=== PATIENT | male | born 1945 | race Caucasian/White ===

== ENCOUNTER → 2017-10-11 15:35 | Outpatient (CLI) | payer MEDICARE, BC, SELFPAY ==
--- NOTE | 2017-10-11 15:39 | CT_ITS ---
STUDY: CT TEMPORAL BONES WITH CONTRAST - ATTN: I.A.C. S REASON FOR EXAM: Male, 71 years old. Hearing loss RADIATION DOSAGE (If Supplied By Facility): CTDIvol = ( 82.28 ) mGy, DLP = ( 971.33 ) mGycm TECHNIQUE: The patient was scanned in a multi detector CT scanner. Transaxial imaging was performed with the administration of 100 ml of Isovue 300 intravenous contrast material. Sagittal and coronal images were reconstructed. Individualized dose optimization techniques were used for this CT. COMPARISON: None. FINDINGS: RIGHT TEMPORAL BONE Normal right internal auditory canal. There is no demonstrated enhancing abnormality. Normal visualized ossicles and tympanic cavity. Normal right cochlea and semicircular canals. Normal vestibular aqueduct. Normal right petrous carotid artery. Normal right jugular fossa. There are minimal scattered inflammatory changes of the right mastoid air cells consistent with mild chronic otomastoiditis. Normal right petrous apex. LEFT TEMPORAL BONE Normal left internal auditory canal. There is no demonstrated enhancing abnormality. Normal visualized ossicles and tympanic cavity. Normal left cochlea and semicircular canals. Normal vestibular aqueduct. Normal left petrous carotid artery. Normal right jugular fossa. There are minimal scattered inflammatory changes of the left mastoid air cells consistent with mild chronic otomastoiditis. Normal left petrous apex. CT/Orb Sella Post Fossa Ear W/CON IMPRESSION: There are minimal scattered inflammatory changes of the left mastoid air cells consistent with mild chronic otomastoiditis. There are minimal scattered inflammatory changes of the right mastoid air cells consistent with mild chronic otomastoiditis. Electronically Signed: Garry Menjivar MD at 23:48 EDT , Service support ,
[2017-10-11 15:51] LABS: CREATININE FINGERSTICK 0.9 mg/dL (0.70-1.30); EGFR FINGERSTICK > 60.0000 mL/min (>60)
== END ==
PROVIDERS: Family Provider Internal Medicine; PCP Internal Medicine; Visit Provider Otolaryngology Otolaryngology/Facial Plastic Surgery
DX: H90.5 Unspecified sensorineural hearing loss (principal); H93.12 Tinnitus, left ear
CPT/HCPCS: 70481; Q9967

== ENCOUNTER → 2017-12-15 09:10 | Outpatient (CLI) | payer MEDICARE, BC, SELFPAY | PROVIDERS: Family Provider Internal Medicine; PCP Internal Medicine; Visit Provider Otolaryngology Otolaryngology/Facial Plastic Surgery | DX: J32.9 Chronic sinusitis, unspecified (principal) | CPT/HCPCS: 87070; 87205 ==

== ENCOUNTER 2020-08-05 16:28 | Outpatient (RCR) | payer MEDICARE, BC, SELFPAY | END 2020-08-05 23:59 | LOC: IMMUN 16:28 | PROVIDERS: PCP Internal Medicine; Referring Provider Family Medicine; Visit Provider Family Medicine | DX: Z23 Encounter for immunization (principal) | CPT/HCPCS: 0011A; 0012A ==

== ENCOUNTER → 2023-05-24 | Outpatient (CLI) | payer MEDICARE, BC, SELFPAY | END | disposition home or self-care (01) | PROVIDERS: PCP Internal Medicine; Visit Provider Otolaryngology | DX: J32.9 Chronic sinusitis, unspecified (principal) | CPT/HCPCS: 87070; 87077; 87186; 87205 ==

== ENCOUNTER → 2023-07-09 | Outpatient (CLI) | payer MEDICARE, BC, SELFPAY ==
--- OUTSIDE RECORDS SUMMARY | 2023-07-09 06:39 | XMS RPT_ITS | CCD ---
Author Name Unknown Address [address] [place] [address] Organization [facility] Care Team Providers Care Backup Operator Name Role Phone Nando Plummer MD Primary Care Provider [phone] Yobany Chou [phone] PLUMMER, NANDO Ruff Primary Care Unavailable PLUMMER, NANDO Ruff Referring Unavailable PLUMMER, NANDO Ruff Primary Care Unavailable PLUMMER, NANDO Ruff Attending Unavailable KAVITHA, NANDO Ruff Primary Care Unavailable PLUMMER, NANDO Ruff Referring Unavailable KARLI DUPREE Attending Unavailable PLUMMER, NANDO Ruff Primary Care Unavailable PLUMMER, NANDO Ruff Referring Unavailable PLUMMER, NANDO Ruff Primary Care Unavailable PLUMMER, NANDO Ruff Primary Care Unavailable KIMBERLY HDEZ Referring Unavailable PLUMMER, NANDO Ruff Primary Care Unavailable KIMBERLY HDEZ Referring Unavailable PLUMMER, NANDO Ruff Primary Care Unavailable PLUMMER, NANDO Ruff Primary Care Unavailable PLUMMER, NANDO Ruff Referring Unavailable PLUMMER, NANDO Ruff Primary Care Unavailable PLUMMER, NANDO Ruff Attending Unavailable KIMBERLY HDEZ Referring Unavailable PLUMMER, NANDO Ruff Primary Care Unavailable PLUMMER, NANDO Ruff Primary Care Unavailable KAY HILLIARD Attending Unavailable KAVITHA, NANDO Ruff Primary Care Unavailable KAY HILLIARD Referring Unavailable KIMBERLY HDEZ Attending Unavailable KAVITHA, NANDO Ruff Primary Care Unavailable KAY HILLIARD Referring Unavailable PLUMMER, NANDO Ruff Primary Care Unavailable PLUMMER, NANDO Ruff Referring Unavailable PLUMMER, NANDO Ruff Primary Care Unavailable SAHARA ANDRADE Attending Unavailable SELF Referring Unavailable PLUMMER, NANDO Ruff Primary Care Unavailable SAHARA ANDRADE Attending Unavailable PLUMMER, NANDO Ruff Primary Care Unavailable PLUMMER, NANDO Ruff Primary Care Unavailable HORNILSS, DO CHRISTOPHER Attending KARLI Black Referring Unavailable PROVIDER, UNKNOWN Attending Unavailable PROVIDER, UNKNOWN Admitting Unavailable NANDO PLUMMER Primary Care Unavailable Allergies Allergy Classification Reported Allergen(s) Allergy Type Date of Onset Reaction(s) Facility (7 sources) Penicillins; Translations: [PENICILLINS] Propensity to adverse reactions 5 Anaphylaxis [facility] Work Phone: (20 sources) Sulfonamides (Antibiotic); Translations: [SULFA (SULFONAMIDE ANTIBIOTICS)] Propensity to adverse reactions 5 Anaphylaxis [facility] Work Phone: (20 sources) Adhesive Tape-Silicones; Translations: [ADHESIVE TAPE-SILICONES] Drug Allergy Rash [facility] (20 sources) Penicillins Propensity to adverse reactions 5 Anaphylaxis [facility] Work Phone: Medications Current Medications Medication Drug Class(es) Dates Sig (Normalized) Sig (Original) azithromycin 250 mg oral tablet (1 source) Macrolide Antimicrobial Start: 05-06-2023 End: 05-11-2023 azithromycin (ZITHROMAX Z-KIRSTEN) 250 mg tablet Indications: Bacterial sinusitis Take 2 tablets day one, then, 1 tablet daily until gone. 6 tablet 0 05/06/2023 05/11/2023 Active Completed/Discontinued Medications Medication Drug Class(es) Dates Sig (Normalized) Sig (Original) [id number] 200 actuat albuterol 0.09 mg/actuat metered dose inhaler (12 sources) beta2-Adrenergic Agonist Start: 07-22-2022 End: 03-30-2023 take 2 puff(s) by inhalation every six hours as needed albuterol HFA (PROAIR HFA) 90 mcg/actuation inhaler Inhale 2 Puffs as instructed every 6 hours as needed. 1 Each 0 07/22/2022 03/30/2023 Discontinued Problems Active Problems Problem Classification Problem Date Documented Date Episodic/Chronic Allergic reactions (1 source) H/O: multiple allergies; Translations: [Allergy status to unspecified drugs, medicaments and biological substances status] Episodic Asthma (20 sources) Uncomplicated mild persistent asthma; Translations: [Mild persistent asthma, uncomplicated] Onset: 08-24-2022 08-24-2022 Chronic Diabetes mellitus with complications (20 sources) Type 2 diabetes mellitus; Translations: [Type 2 diabetes mellitus with diabetic neuropathy, unspecified] Onset: 01-11-2017 12-19-2019 Chronic Disorders of lipid metabolism (3 sources) Hyperlipidemia; Translations: [Hyperlipidemia, unspecified] Onset: 09-21-2022 Chronic Essential hypertension (20 sources) Essential hypertension; Translations: [Essential (primary) hypertension] Onset: 07-27-2005 12-19-2019 Chronic Heart valve disorders (8 sources) Heart murmur; Translations: [Cardiac murmur, unspecified] Onset: 03-30-2023 03-30-2023 Episodic Osteoarthritis (2 sources) Osteoarthritis; Translations: [Unspecified osteoarthritis, unspecified site] Chronic Other connective tissue disease (8 sources) Cramp; Translations: [Cramp and spasm] Onset: 03-30-2023 03-30-2023 Episodic Other connective tissue disease (1 source) Cramp and spasm; Translations: [Muscle cramps] Onset: 03-26-2023 Episodic Other lower respiratory disease (2 sources) Dyspnea; Translations: [Dyspnea, unspecified] Episodic Other lower respiratory disease (8 sources) Dyspnea on exertion; Translations: [Other forms of dyspnea] Onset: 03-30-2023 03-30-2023 Episodic Other nutritional; endocrine; and metabolic disorders (20 sources) Body mass index 40+ - severely obese; Translations: [Morbid (severe) obesity due to excess calories] Onset: 08-29-2020 08-29-2020 Chronic Other screening for suspected conditions (not mental disorders or infectious disease) (2 sources) Finding of thyroid gland; Translations: [Abnormal findings on diagnostic imaging of other specified body structures] Onset: 05-18-2023 04-19-2023 Chronic Other upper respiratory disease (20 sources) Chronic rhinitis; Translations: [Chronic rhinitis] Onset: 12-22-2012 06-02-2021 Chronic Other upper respiratory disease (2 sources) Allergic rhinitis; Translations: [Allergic rhinitis, unspecified] Chronic Other upper respiratory infections (20 sources) Recurrent sinusitis; Translations: [Chronic sinusitis, unspecified] Onset: 01-13-2018 01-13-2018 Chronic Pulmonary heart disease (1 source) Pulmonary hypertension, unspecified; Translations: [Other chronic pulmonary heart diseases] Chronic Residual codes; unclassified (20 sources) Obstructive sleep apnea syndrome; Translations: [Obstructive sleep apnea (adult) (pediatric)] Onset: 07-25-2008 06-02-2021 Chronic Residual codes; unclassified (8 sources) Bilateral lower limb edema; Translations: [Localized edema] Onset: 03-30-2023 03-30-2023 Episodic Spondylosis; intervertebral disc disorders; other back problems (20 sources) Prolapsed lumbar intervertebral disc; Translations: [Other intervertebral disc displacement, lumbar region] Onset: 01-05-2014 Chronic Thyroid disorders (20 sources) Thyroid nodule; Translations: [Nontoxic single thyroid nodule] Onset: 02-02-2020 02-02-2020 Chronic Thyroid disorders (1 source) Disorder of thyroid, unspecified; Translations: [Thyroid mass] Onset: 06-22-2023 Episodic Unclassified (1 source) Acute cough; Translations: [Acute cough] Onset: 07-22-2022 Past or Other Problems Problem Classification Problem Date Documented Date Episodic/Chronic Chronic obstructive pulmonary disease and bronchiectasis (2 sources) Bronchitis; Translations: [Bronchitis, not specified as acute or chronic] Onset: 08-24-2022 Episodic Malaise and fatigue (1 source) Other fatigue; Translations: [Decreased stamina] Onset: 09-24-2022 Episodic Other nervous system disorders (20 sources) Abnormal gait; Translations: [Unspecified abnormalities of gait and mobility] Onset: 09-09-2021 Episodic Other non-epithelial cancer of skin (20 sources) Intraepidermal squamous carcinoma of leg; Translations: [Carcinoma in situ of skin of right lower limb, including hip] Onset: 12-01-2018 12-01-2018 Episodic Other non-traumatic joint disorders (20 sources) Hip pain; Translations: [Pain in right hip] Onset: 09-09-2021 Episodic Other skin disorders (20 sources) Actinic keratosis; Translations: [Actinic keratosis] Onset: 01-30-2012 01-30-2012 Episodic Results Test Name Value Interpretation Reference Range Facil ity Vital Signs Date Time Vital Sign Value Performing Clinician Faci lity 05-06-2023 09:20-0500 Body temperature 98.29 [degF] Montana Srinivasan APRN.ELECTRODE T[employer]NER AND FINISHER Work Phone: [facility] 05-06-2023 09:20-0500 Body weight 131.36 kg Montana Craig CLINICAL NURSE REVIEWER.ELECTRO[employer]NER [employer] FINISHER Work Phone: [facility] 05-06-2023 09:20-0500 Diastolic blood pressure 78 mm[Hg] Montana Craig CLINICAL NURSE REVIEWER.[employer]LECT[employer]NER [employer] FINISHER Work Phone: [facility] 05-06-2023 09:20-0500 Heart rate 100 /min Montana Craig CLINICAL NURSE REVIEWER.[employer]LECT[employer]NER AND FINISHER Work Phone: [facility] 05-06-2023 09:20-0500 Respiratory rate 21 /min Montana Craig CLINICAL NURSE REVIEWER.[employer]LECT[employer]NER AND FINISHER Work Phone: [facility] 05-06-2023 09:20-0500 SaO2% (BldA) [Mass fraction] 95 % Montana Craig CLINICAL NURSE REVIEWER.[employer]NER AND FINISHER Work Phone: [facility] 05-06-2023 09:20-0500 Systolic blood pressure 140 mm[Hg] Montana Craig CLINICAL NURSE REVIEWER.ELECTRO[employer]NER [employer] FINISHER Work Phone: [facility] 04-28-2023 08:52-0500 Body temperature 98.1 [degF] Montana Craig CLINICAL NURSE REVIEWER.ELECTRODE [employer]NER AND FINISHER Work Phone: [facility] 04-28-2023 08:52-0500 Body weight 131.09 kg Montana Craig CLINICAL NURSE REVIEWER.ELECTRO[employer]NER AND FINISHER Work Phone: [facility] 04-28-2023 08:52-0500 Diastolic blood pressure 90 mm[Hg] Montana Craig CLINICAL NURSE REVIEWER.[employer]LECT[employer]NER AND FINISHER Work Phone: [facility] 04-28-2023 08:52-0500 Heart rate 98 /min Montana Craig CLINICAL NURSE REVIEWER.ELECT[employer]NER AND FINISHER Work Phone: [facility] 04-28-2023 08:52-0500 Respiratory rate 16 /min Montana Craig CLINICAL NURSE REVIEWER.ELECTRO[employer]NER AND FINISHER Work Phone: [facility] 04-28-2023 08:52-0500 SaO2% (BldA) [Mass fraction] 97 % Montana Craig CLINICAL NURSE REVIEWER.ELECTRO[employer]NER AND FINISHER Work Phone: [facility] 04-28-2023 08:52-0500 Systolic blood pressure 138 mm[Hg] Montana King CARL Work Phone: [facility] 04-19-2023 09:17-0500 Body height 175.3 cm Karli Dupree MD Work Phone: [facility] 04-19-2023 09:17-0500 Body temperature 98.1 [degF] Karli Dupree MD Work Phone: [facility] 04-19-2023 09:17-0500 Body weight 131.81 kg Karli Dupree MD Work Phone: [facility] 04-19-2023 09:17-0500 Diastolic blood pressure 86 mm[Hg] Karli Dupree MD Work Phone: [facility] 04-19-2023 09:17-0500 Heart rate 99 /min Karli Dupree MD Work Phone: [facility] 04-19-2023 09:17-0500 SaO2% (BldA) [Mass fraction] 94 % Karli Dupree MD Work Phone: [facility] 04-19-2023 09:17-0500 Systolic blood pressure 134 mm[Hg] Karli Dupree MD Work Phone: [facility] 03-30-2023 10:49-0400 Diastolic blood pressure 75 mm[Hg] Nando Plummer MD Work Phone: [facility] 03-30-2023 10:49-0400 Heart rate 65 /min Nando Plummer MD Work Phone: [facility] 03-30-2023 10:49-0400 Systolic blood pressure 131 mm[Hg] Nando Plummer MD Work Phone: [facility] 03-30-2023 10:38-0400 Body height 170.2 cm Nando Plummer MD Work Phone: [facility] 03-30-2023 10:38-0400 Body weight 131.09 kg Nando Plummer MD Work Phone: [facility] 03-30-2023 10:38-0400 Respiratory rate 18 /min Nando Plummer MD Work Phone: [facility] 08-24-2022 11:28-0400 Body height 171.7 cm Kimberly Hdez MD Work Phone: [facility] 08-24-2022 11:28-0400 Body weight 128.82 kg Kimberly Hdez MD Work Phone: [facility] 08-24-2022 11:28-0400 Diastolic blood pressure 76 mm[Hg] Kimberly Hdez MD Work Phone: [facility] 08-24-2022 11:28-0400 Heart rate 84 /min Kimberly Hdez MD Work Phone: [facility] 08-24-2022 11:28-0400 Respiratory rate 20 /min Kimberly Hdez MD Work Phone: [facility] 08-24-2022 11:28-0400 SaO2% (BldA) [Mass fraction] 94 % Kimberly Hdez MD Work Phone: [facility] 08-24-2022 11:28-0400 Systolic blood pressure 152 mm[Hg] Kimberly Hdez MD Work Phone: [facility] 03-11-2022 08:44-0400 Body height 171.7 cm Nando Plummer MD Work Phone: [facility] 03-11-2022 08:44-0400 Body temperature 97.3 [degF] Nando Plummer MD Work Phone: [facility] 03-11-2022 08:44-0400 Body weight 128.28 kg Nando Plummer MD Work Phone: [facility] 03-11-2022 08:44-0400 Diastolic blood pressure 78 mm[Hg] Nando Plummer MD Work Phone: [facility] 03-11-2022 08:44-0400 Heart rate 60 /min Nando Plummer MD Work Phone: [facility] 03-11-2022 08:44-0400 Respiratory rate 20 /min Nando Plummer MD Work Phone: [facility] 03-11-2022 08:44-0400 Systolic blood pressure 136 mm[Hg] Nando Plummer MD Work Phone: [facility] Encounters Encounter Date Encounter Type Care Provider Facility Start: 06-22-2023 End: 06-22-2023 ambulatory NANDO PLUMMER Facility:[facility] Start: 05-18-2023 ambulatory UNKNOWN PROVIDER Facili ty:[facility] Start: 05-18-2023 End: 05-18-2023 Subsequent hospital visit by physician Maynor Waite MD [facility] Procedures Date Procedure Procedure Detail Performing Clinician Start: 05-18-2023 Fine needle aspirati on bx w/us gdn 1st lesion Karli Dupree MD Work Phone: Start: 05-18-2023 End: 05-18-2023 Biopsy thyroid percutaneous core needle Maynor Waite MD Work Phone: Start: 04-06-2023 Us soft tissue head & neck real time imge docm Nando Plummer MD Work Phone: Start: 08-24-2022 Nitric oxide gas determination Kimberly Hdez MD Work Phone: Start: 09-01-2021 Adult depression scr eening assessment Ryland Haywood PT Work Phone: Start: 05-14-2021 Colonoscopy Ryland tovar PT Work Phone: Plan of Treatment Date Care Activity Detail Author Start: 04-10-2032 Urine microalbumin profile [facility] Start: 05-14-2031 Colonoscopy COLONOSCOPY [facility] Start: 05-14-2031 COLORECTAL CANCER SCREENING COLORECTAL CANCER SCREENING [facility] Start: 05-13-2024 Glaucoma screening Dilated Retinal Exam [facility] Start: 03-30-2024 Annual PCP Team Chronic Disease Visit Annual PCP Team Chronic Disease Visit [facility] Start: 09-29-2023 End: 12-29-2023 ALBUMIN/CREAT RATIO RND UR ALBUMIN/CREAT RATIO RND UR Lab Routine 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) Expected: 09/29/2023, Expires: 12/29/2023 [facility] Work Phone: Immunizations Immunization Date Immunization Notes Care Provider Fa [facility] 03-24-2023 COVID-19 vaccine, ag e 12+ yr, season (MODERNA) Nando Plummer MD Work Phone: [facility] Work Phone: 03-16-2023 influenza (aIIV4) vaccine, age 65+ yr, quadrivalent, PF (FLUAD QUAD) Nando Plummer MD Work Phone: [facility] 03-02-2023 respiratory syncytia l virus (RSV) vaccine, adjuvanted (AREXVY) Nando Plummer MD Work Phone: [facility] 11-06-2022 COVID-19 vaccine, ag e 12+ yr, bivalent (MODERNA) Nando Plummer MD Work Phone: [facility] 11-06-2022 COVID-19 vaccine, ag e 12+ yr, bivalent (PFIZER-BIONTECH) Shanell Older CLINICAL NURSE REVIEWER.[facility] Work Phone: [facility] Work Phone: 04-10-2022 tetanus toxoid, redu rosaura diphtheria toxoid, and acellular pertussis vaccine, adsorbed Shanell Older CLINICAL NURSE REVIEWER.[facility] Work Phone: [facility] Work Phone: 03-13-2022 influenza (HD-IIV4) vaccine, age 65+ yr, high dose, quadrivalent, PF (FLUZONE HIGH-DOSE) Shanell Older CLINICAL NURSE REVIEWER.[facility] Work Phone: [facility] Work Phone: 03-13-2022 influenza, high dose seasonal, preservative-free Shanell Older CLINICAL NURSE REVIEWER.[facility] Work Phone: [facility] Work Phone: 03-13-2022 influenza virus vacc ine, unspecified formulation Shanell Older CLINICAL NURSE REVIEWER.[employer]LECTRO[employer] T[employer]NER AND FINISHER Work Phone: [facility] 02-11-2022 COVID-19 vaccine, ag e 18+ yr, bivalent booster (MODERNA) Nando Plummer MD Work Phone: [facility] Work Phone: 02-25-2021 influenza virus vacc ine, unspecified formulation Ryland Yobany PT Work Phone: [facility] Work Phone: 02-25-2021 influenza, high dose seasonal, preservative-free Ryland Yobany PT Work Phone: [facility] 08-05-2020 COVID-19 vaccine, fu ll dose (MODERNA) Ryland Yobany PT Work Phone: [facility] Work Phone: 03-11-2020 influenza, high dose seasonal, preservative-free Ryland Yobany PT Work Phone: [facility] Work Phone: 04-27-2019 zoster vaccine recombinant Ryland Yobany PT Work Phone: [facility] Work Phone: 03-14-2019 influenza, high dose seasonal, preservative-free Ryland Yobany PT Work Phone: [facility] 01-11-2019 zoster vaccine recombinant Ryland Yobany PT Work Phone: [facility] 03-05-2018 influenza, high dose seasonal, preservative-free Ryland Yobany PT Work Phone: [facility] 03-13-2017 influenza, high dose seasonal, preservative-free Ryland Yobany PT Work Phone: [facility] 02-29-2016 influenza, high dose seasonal, preservative-free Ryland Yobany PT Work Phone: [facility] 03-09-2015 influenza, high dose seasonal, preservative-free Ryland Yobany PT Work Phone: [facility] 01-10-2015 pneumococcal conjuga te vaccine, 13 valent Ryland Yobany PT Work Phone: [facility] Work Phone: 03-14-2014 influenza, seasonal, injectable Ryland Haywood PT Work Phone: [facility] 01-05-2014 pneumococcal polysaccharide vaccine, 23 valent Rylandemanuel Haywood PT Work Phone: [facility] 03-11-2013 influenza virus vacc ine, unspecified formulation Ryland Yobany PT Work Phone: [facility] Work Phone: 03-05-2012 influenza virus vacc ine, unspecified formulation Ryland Yobany PT Work Phone: [facility] 03-20-2011 influenza virus vacc ine, unspecified formulation Ryland Yobany PT Work Phone: [facility] Work Phone: 11-28-2010 zoster vaccine, live Ryland barber PT Work Phone: [facility] 10-23-2008 tetanus toxoid, redu rosaura diphtheria toxoid, and acellular pertussis vaccine, adsorbed Rylandemanuel Haywood PT Work Phone: [facility] Work Phone: Payers Date Payer Category Payer Medicare MEDICARE MEDICAR E A AND B [id number] 2011-Present [phone] [address] [address] [place] [address] Medicare [id number] 2011 Medicare MEDICARE MEDICAR E A AND B [id number] 2011-Present [phone] [address] [address] [place] [address] Medicare [id number] 2011 Medicare [id number] 1993 Unknown [employer] BS FEP PPO [id number] 1993-Present [phone] [address] [place] [address] PPO [id number] 1993 Unknown [employer]UA[employer] BS FEP PPO [id number] 1993-Present [phone] [address] [place] [address] PPO [id number] 1993 Unknown [id number] Social History Date Type Detail Facility Start: 07-22-2022 Tobacco smoking status NHIS Never smoked tobacco [facility] Work Phone: Start: 09-03-2021 End: 03-30-2023 Alcohol intake Ex-drinker (finding) [facility] Start: 09-02-2021 End: 03-10-2022 History SDOH Alcohol Frequency 1 [facility] Start: 09-02-2021 End: 09-22-2022 History SDOH Social Connections Phone 2 [facility] Start: 09-02-2021 End: 09-22-2022 History SDOH Social Connections Living 3 [facility] Start: 09-02-2021 History SDOH Physical Activity DPW 7 [facility] Start: 09-02-2021 End: 09-22-2022 History SDOH Financial 5 [facility] Start: 02-06-2020 Education 20 [facility] Start: 1945 Sex Assigned At Male [facility] Start: 08-24-2021 End: 03-11-2022 Exposure to SARS-CoV-2 (event) Not sure [facility] Work Phone: Start: 03-11-2022 History SDOH Physical Activity DPW 4 [facility] Start: 07-22-2022 Tobacco use and exposure Smokeless tobacco non-user [facility] Start: 09-22-2022 History SDOH Alcohol Std Drinks 0 [facility] Start: 09-21-2022 End: 12-03-2022 History of Social function [facility] Start: 09-21-2022 End: 12-03-2022 Social connection and isolation panel [facility] Do you belong to any clubs or organizations such as baptist groups, unions, fraternal or athletic groups, or school groups? No [facility] Attends Club or Organization Meetings Not on file [facility] Are you now , , , , never or living with a partner? [facility] How often to you hav e a drink containing alcohol? Never [facility] Do you feel stress - tense, restless, nervous, or anxious, or unable to sleep at night because your mind is troubled all the time - these days [OSQ] Not at all [facility] (I/We) worried wheth er (my/our) food would run out before (I/we) got money to buy more. Never true [facility] Start: 05-11-2020 Gender identity Identifies as male gender (finding) [facility] Start: 05-11-2020 Sexual orientation Heterosexual (finding) [facility] Start: 04-19-2023 End: 05-06-2023 Alcohol intake Current drinker of alcohol (finding) [facility] Clinical Notes 12-15-2019 to 06-22-2023 Brief Op Note - Maynor Waite MD, MD - 05/18/2023 5:46 PM Montana Jacobsen APRN.[facility] - 05/06/2023 10:27 AM Montana Jacobsen APRN.[facility] - 04/28/2023 10:05 AM ESTPatient Instructions Note Date & Type Note Facility 06-22-2023 Note HNO ID: [id number] Author: DO BAILEY MD Service: ? Author Type: Physician Type: Progress Notes Filed: 06/22/2023 11:24 Note Text: Reji Sarmiento is a 77 year old White male who presents with complaints of Thyroid nodularity HPI: he was in for evaluation of his thyroid nodularity. His initial office visit was virtual because of the COVID epidemic. He had a trauma which resulted in further imaging with a CT scan showing thyroid nodularity. Ultrasonography was done showing 3 dominant nodules and biopsy was recommended at that time. He underwent left thyroid nodule FNA biopsy in 2020 with the finding of atypia of undetermined significance but benign molecular testing. Follow-up ultrasonography was done . He was noted to have a 2.0 cm TI-RADS 4 lesion and FNA biopsy showed atypia of undetermined significance but Afirma molecular testing was benign. A 2.8 cm left-sided thyroid nodule TI-RADS 4 was also rebiopsied and found to be consistent with a benign follicular lesion. A third smaller 1.5 cm left-sided lesion TI-RADS 3 was below the threshold for biopsy and shortened interval follow-up ultrasonography over the next 5 years was recommended. These findings were reviewed with him. His original CT imaging was reviewed with him as well. I reviewed the differential diagnosis. We discussed risk benefits options potential complications. Previous TSH levels have been normal. This note was partially generated using [employer] voice recognition system. PAST MEDICAL HISTORY Diagnosis Date Allergies Previous IT Cholelithiasis 11/22/2019 Chronic rhinitis 12/22/2012 Chronic tympanostomies, Dr. Kramer, ENT Chronic serous otitis media of both ears 12/22/2012 Chronic tympanostomies, Dr. 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 Kee Aceves Lumbar disc herniation 01/05/2014 Mild persistent asthma without complication 08/24/2022 Motion sickness Multinodular goiter 04/10/2023 Multiple fractures of ribs, bilateral, initial encounter for closed fracture 11/23/2019 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 02/02/2020 Obesity, unspecified 07/27/2005 YUDITH on CPAP 07/25/[address] Zepeda Pleural effusion on right 12/13/2019 s/p trauma, chest tube drainage PAST SURGICAL HISTORY Procedure Laterality Date ADENOIDECTOMY PRIMARY Adenoidectomy ARTHROSCOPY KNEE DIAGNOSTIC W/WO SYNOVIAL BX SPX Arthroscopy, knee COLONOSCOPY FLX DX W/COLLJ SPEC WHEN PFRMD 10/02/2010 PAST SURGICAL HISTORY OF Right 12/13/2019 chest tube due to trauma rib fracture and clavicle fracture SEPTOPLASTY/SUBMUCOUS RESECJ W/WO CARTILAGE GRF Septoplasty THYROID BIOPSY US 11/26/2020 TONSILLECTOMY PRIMARY/SECONDARY Tonsillectomy TYMPANOSTOMY GENERAL ANES BILA 05/07/2011 Social History Tobacco Use Smoking status: Never Smokeless tobacco: Never Vaping Use Vaping Use: Never used Substance Use Topics Alcohol use: Yes Comment: 1.5 liters of wine per week. Stopped 2013. Drug use: No Family History Problem Relation Age of Onset Hypertension Mother Glaucoma Mother Cancer Father lymphoma, Hypertension Father Heart disease Maternal Grandfather Cancer Paternal Aunt Cancer Paternal Uncle Skin Cancer Paternal Uncle Asthma No Family History ALLERGIES Allergen Reactions Penicillins Anaphylaxis Sulfa (Sulfonamide * Anaphylaxis Tape [Adhesive Tape* Rash JUST SURGICAL FOAM TAPE Current Outpatient Medications Medication Sig Dispense Refill fluticasone (FLONASE) 50 mcg/actuation nasal spray Benazepril-hydroCHLOROthiazide 20-12.5 mg per tablet Take 2 tablets by mouth every morning. 180 tablet 3 metFORMIN (GLUCOPHAGE) 500 mg tablet Take 1 tablet by mouth daily with breakfast. 90 tablet 3 pravastatin (PRAVACHOL) 40 mg tablet Take 1 tablet by mouth daily at bedtime. For cholesterol. 90 tablet 3 fluticasone furoate (ARNUITY ELLIPTA) 100 mcg/actuation inhaler Inhale 1 Puff as instructed once daily. 1 Each 5 doxazosin (CARDURA) 2 mg tablet Take 2 tablets by mouth daily at bedtime. 180 tablet 1 meloxicam (MOBIC) 15 mg tablet Take 1 tablet by mouth once daily. With food. 90 tablet 3 amLODIPine (NORVASC) 10 mg tablet Take 1 tablet by mouth once daily. 90 tablet 3 Potassium 99 mg tab Take 2 tablets by mouth twice daily. Oqasw-2-KAZ-EPA-Fish Oil 1,000 mg (120 mg-180 mg) cap Take 1 g by mouth once daily. sodium chloride (SALINE NASAL NASAL) Use 1 [place] Pk in the nose as needed. calcium carbonate (more content not included)... [facility] 05-18-2023 Surgical operatio n note INTERVENTIONAL RADIOLOGY POST PROCEDURE NOTE DATE: 05/18/23 NAME: Reji Sarmiento LOG ID: [id number] Pre-Procedure Diagnosis: Abnormal thyroid US Uniform Cap Operator: Surgeon(s) and Role: * Maynor Waite MD, MD - Primary Procedure: US-guided biopsy thyroid nodules x 2 Anesthesia: Local anesthesia Findings: The suspicious right and left nodules were localized and successfully biopsied under direct US guidance using FNA technique Estimated Blood Loss: Minimal Specimen: FNA specimens evaluated by Cytology and reported as adequate for diagnosis Complications: None Post-Op/Post-Procedure Diagnosis: Successful US-guided biopsy of suspicious thyroid lesions (x2) as described above Please see Radiology report for complete information documented in this encounter [facility] 05-06-2023 Note HNO ID: [id number] Author: Montana Srinivasan APRN.ELECTRODE [employer]NER AND FINISHER Service: ? Author Type: Nurse Practitioner Type: Progress Notes Filed: 05/06/2023 10:31 AM Note Text: Subjective HPI HPI Reji Sarmiento is a 77 year old male who presents today for CC of cough, congestion, sinus pressure. This started 3 weeks ago. Has tried otc medication and doxycycline for relief. Symptoms are worsened by nothing. Risk factors hx of sinusitis. .Patient presents with: Sinus Problem: Congestion, HOWE x 3 weeks PAST MEDICAL HISTORY Diagnosis Date Allergies Previous IT Cholelithiasis 11/22/2019 Chronic rhinitis 12/22/2012 Chronic tympanostomies, Dr. Kramer, ENT Chronic serous otitis media of both ears 12/22/2012 Chronic tympanostomies, Dr. 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 Kee Aceves Lumbar disc herniation 01/05/2014 Mild persistent asthma without complication 08/24/2022 Motion sickness Multinodular goiter 04/10/2023 Multiple fractures of ribs, bilateral, initial encounter for closed fracture 11/23/2019 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 02/02/2020 Obesity, unspecified 07/27/2005 YUDITH on CPAP 07/25/[address] Zepeda Pleural effusion on right 12/13/2019 s/p trauma, chest tube drainage PAST SURGICAL HISTORY Procedure Laterality Date ADENOIDECTOMY PRIMARY Adenoidectomy ARTHROSCOPY KNEE DIAGNOSTIC W/WO SYNOVIAL BX SPX Arthroscopy, knee COLONOSCOPY FLX DX W/COLLJ SPEC WHEN PFRMD 10/02/2010 PAST SURGICAL HISTORY OF Right 12/13/2019 chest tube due to trauma rib fracture and clavicle fracture SEPTOPLASTY/SUBMUCOUS RESECJ W/WO CARTILAGE GRF Septoplasty THYROID BIOPSY US 11/26/2020 TONSILLECTOMY PRIMARY/SECONDARY Tonsillectomy TYMPANOSTOMY GENERAL ANES BILA 05/07/2011 ALLERGIES Penicillins, Sulfa (Sulfonamide Antibiotics), and Tape [Adhesive Tape-Silicones] MEDICATIONS fluticasone (FLONASE) 50 mcg/actuation nasal sprayDisp: Rfl: Benazepril-hydroCHLOROthiazide 20-12.5 mg per tabletTake 2 tablets by mouth every morning.Disp: 180 tabletRfl: 3 metFORMIN (GLUCOPHAGE) 500 mg tabletTake 1 tablet by mouth daily with breakfast.Disp: 90 tabletRfl: 3 pravastatin (PRAVACHOL) 40 mg tabletTake 1 tablet by mouth daily at bedtime. For cholesterol.Disp: 90 tabletRfl: 3 fluticasone furoate (ARNUITY ELLIPTA) 100 mcg/actuation inhalerInhale 1 Puff as instructed once daily.Disp: 1 EachRfl: 5 doxazosin (CARDURA) 2 mg tabletTake 2 tablets by mouth daily at bedtime.Disp: 180 tabletRfl: 1 meloxicam (MOBIC) 15 mg tabletTake 1 tablet by mouth once daily. With food.Disp: 90 tabletRfl: 3 amLODIPine (NORVASC) 10 mg tabletTake 1 tablet by mouth once daily.Disp: 90 tabletRfl: 3 Potassium 99 mg tabTake 2 tablets by mouth twice daily.Disp: Rfl: Ielfp-1-YIY-EPA-Fish Oil 1,000 mg (120 mg-180 mg) capTake 1 g by mouth once daily.Disp: Rfl: sodium chloride (SALINE NASAL NASAL)Use 1 [place] P[place] in the nose as needed.Disp: Rfl: calcium carbonate (CALCIUM 600 ORAL)Take 1 tablet by mouth twice daily.Disp: Rfl: Lactobac comb 6-UDG-emxkhkolgd (PROBIOTIC AND ACIDOPHILUS) 300-250 million cell-mg capTake 1 capsule by mouth once daily. Disp: Rfl: 0 docusate sodium (COLACE) 100 mg capsuleTake 1 capsule by mouth once daily.Disp: Rfl: MULTIVITAMIN TABTake 1 tablet by mouth once daily. Disp: Rfl: 0 azithromycin (ZITHROMAX Z-KIRSTEN) 250 mg tabletTake 2 tablets day one, then, 1 tablet daily until gone.Disp: 6 tabletRfl: 0 predniSONE (DELTASONE) 20 mg tabletTake 2 tablets by mouth once daily for 5 days.Disp: 10 tabletRfl: 0 FAMILY HISTORY Problem Relation Age of Onset Hypertension Mother Glaucoma Mother Cancer Father lymphoma, Hypertension Father Heart disease Maternal Grandfather Cancer Paternal Aunt Cancer Paternal Uncle Skin Cancer Paternal Uncle Asthma No Family History Social History Tobacco Use Smoking status: Never Smokeless tobacco: Never Vaping Use Vaping Use: Never used Substance Use Topics Alcohol use: Yes Comment: 1.5 liters of wine per week. Stopped 2013. Drug use: No Review of Systems Constitutional: Negative for fever. HENT: Positive for congestion and sinus pain. Negative for ear pain, nosebleeds and sore throat. Respiratory: Positive for cough (improving). Negative for shortness of breath and wheezing. Musculoskeletal: Negative for neck pain. Objective Blood pressure 140/78, pulse 100, temperature 36.8 ?C (98.3 ?F), resp. rate 21, weight 131.4 kg (289 lb 9.6 oz), S (more content not included)... [facility] 05-06-2023 History of Presen t illness Narrative Subjective HPI HPI Reji Sarmiento is a 77 year old male who presents today for CC of cough, congestion, sinus pressure. This started 3 weeks ago. Has tried otc medication and doxycycline for relief. Symptoms are worsened by nothing. Risk factors hx of sinusitis. .Patient presents with: Sinus Problem: Congestion, HOWE x 3 weeks PAST MEDICAL HISTORY Diagnosis Date Allergies Previous IT Cholelithiasis 11/22/2019 Chronic rhinitis 12/22/2012 Chronic tympanostomies, Dr. Kramer, ENT Chronic serous otitis media of both ears 12/22/2012 Chronic tympanostomies, Dr. 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 Kee Aceves Lumbar disc herniation 01/05/2014 Mild persistent asthma without complication 08/24/2022 Motion sickness Multinodular goiter 04/10/2023 Multiple fractures of ribs, bilateral, initial encounter for closed fracture 11/23/2019 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 02/02/2020 Obesity, unspecified 07/27/2005 YUDITH on CPAP 07/25/[address] Zepeda Pleural effusion on right 12/13/2019 s/p trauma, chest tube drainage PAST SURGICAL HISTORY Procedure Laterality Date ADENOIDECTOMY PRIMARY <AGE 13 Adenoidectomy ARTHROSCOPY KNEE DIAGNOSTIC W/WO SYNOVIAL BX SPX Arthroscopy, knee COLONOSCOPY FLX DX W/COLLJ SPEC WHEN PFRMD 10/02/2010 PAST SURGICAL HISTORY OF Right 12/13/2019 chest tube due to trauma rib fracture and clavicle fracture SEPTOPLASTY/SUBMUCOUS RESECJ W/WO CARTILAGE GRF Septoplasty THYROID BIOPSY US 11/26/2020 TONSILLECTOMY PRIMARY/SECONDARY <AGE 13 Tonsillectomy TYMPANOSTOMY GENERAL ANES BILA 05/07/2011 ALLERGIES Penicillins, Sulfa (Sulfonamide Antibiotics), and Tape [Adhesive Tape-Silicones] MEDICATIONS fluticasone (FLONASE) 50 mcg/actuation nasal spray^^Disp: ^Rfl: Benazepril-hydroCHLOROthiazide 20-12.5 mg per tablet^Take 2 tablets by mouth every morning.^Disp: 180 tablet^Rfl: 3 metFORMIN (GLUCOPHAGE) 500 mg tablet^Take 1 tablet by mouth daily with breakfast.^Disp: 90 tablet^Rfl: 3 pravastatin (PRAVACHOL) 40 mg tablet^Take 1 tablet by mouth daily at bedtime. For cholesterol.^Disp: 90 tablet^Rfl: 3 fluticasone furoate (ARNUITY ELLIPTA) 100 mcg/actuation inhaler^Inhale 1 Puff as instructed once daily.^Disp: 1 Each^Rfl: 5 doxazosin (CARDURA) 2 mg tablet^Take 2 tablets by mouth daily at bedtime.^Disp: 180 tablet^Rfl: 1 meloxicam (MOBIC) 15 mg tablet^Take 1 tablet by mouth once daily. With food.^Disp: 90 tablet^Rfl: 3 amLODIPine (NORVASC) 10 mg tablet^Take 1 tablet by mouth once daily.^Disp: 90 tablet^Rfl: 3 Potassium 99 mg tab^Take 2 tablets by mouth twice daily.^Disp: ^Rfl: Ghkxq-8-PRA-EPA-Fish Oil 1,000 mg (120 mg-180 mg) cap^Take 1 g by mouth once daily.^Disp: ^Rfl: sodium chloride (SALINE NASAL NASAL)^Use 1 [place] P[place] in the nose as needed.^Disp: ^Rfl: calcium carbonate (CALCIUM 600 ORAL)^Take 1 tablet by mouth twice daily.^Disp: ^Rfl: Lactobac comb 1-UUG-betoouxqay (PROBIOTIC AND ACIDOPHILUS) 300-250 million cell-mg cap^Take 1 capsule by mouth once daily. ^Disp: ^Rfl: 0 docusate sodium (COLACE) 100 mg capsule^Take 1 capsule by mouth once daily.^Disp: ^Rfl: MULTIVITAMIN TAB^Take 1 tablet by mouth once daily. ^Disp: ^Rfl: 0 azithromycin (ZITHROMAX Z-KIRSTEN) 250 mg tablet^Take 2 tablets day one, then, 1 tablet daily until gone.^Disp: 6 tablet^Rfl: 0 predniSONE (DELTASONE) 20 mg tablet^Take 2 tablets by mouth once daily for 5 days.^Disp: 10 tablet^Rfl: 0 FAMILY HISTORY Problem Relation Age of Onset Hypertension Mother Glaucoma Mother Cancer Father lymphoma, Hypertension Father Heart disease Maternal Grandfather Cancer Paternal Aunt Cancer Paternal Uncle Skin Cancer Paternal Uncle Asthma No Family History Social History Tobacco Use Smoking status: Never Smokeless tobacco: Never Vaping Use Vaping Use: Never used Substance Use Topics Alcohol use: Yes Comment: 1.5 liters of wine per week. Stopped 2013. Drug use: No Review of Systems Constitutional: Negative for fever. HENT: Positive for congestion and sinus pain. Negative for ear pain, nosebleeds and sore throat. Respiratory: Positive for cough (improving). Negative for shortness of breath and wheezing. Musculoskeletal: Negative for neck pain. Objective Blood pressure 140/78, pulse 100, temperature 36.8 C (98.3 F), resp. rate 21, weight 131.4 kg (289 lb 9.6 oz), SpO2 95 %. Physical Exam Constitutional: General: He is not in acute distress. Appearance: He is not toxic-appearing or diaphoretic. HENT: Head: Normocephalic and atraumatic. Nose: Left Sinus: Maxillary sinus tenderness present. Cardiovascular: Rate and Rhythm: Normal rate and regular rhythm. Heart sounds: Normal heart sounds, S1 normal and S2 normal. Pulmonary: Effort: Pulmonary effort is normal. Breath sounds: Normal breath sounds. Lymphadenopathy: Cervical: No cervical adenopathy. Right cervical: No superficial cervical adenopathy. Left cervical: No superficial cervical adenopathy. Neurological: Mental Status: He is alert and oriented to person, place, and time. Gait: Gait is intact. ASSESSMENT/PLAN: 1. Bacterial sinusitis - ICD9: 473.9, 041.9, ICD10: J32.9, B96.89 - Will begin treatment with Zithromax pack as directed, requesting 2 rounds, one provided - Supportive care with plenty of fluids, rest, and analgesia prn. - Follow up in 3-5 days if symptoms persist or worsen. If s/s persist see ENT - AZITHROMYCIN 250 MG TABLET, requests zpack - PREDNISONE 20 MG TABLET Montana Srinivasan APRN.ELECTRODE T[employer]NER AND FINISHER documented in this encounter [facility] 04-28-2023 Note HNO ID: [id number] Author: Montana Srinivasan APRN.ELECTRODE T[employer]NER AND FINISHER Service: ? Author Type: Nurse Practitioner Type: Progress Notes Filed: 04/28/2023 10:07 AM Note Text: Subjective HPI HPI Reji Sarmiento is a 77 year old male who presents today for CC of sinus pain, cough, congestion. This started 11 days ago. Has tried otc medication for relief. Symptoms are worsened by nothing. Tested positive for covid. Nonsmoker. Hx of sinus infections. .Patient presents with: Cough: Continues to test postive for covid with at home test. X11 days. PAST MEDICAL HISTORY Diagnosis Date Allergies Previous IT Cholelithiasis 11/22/2019 Chronic rhinitis 12/22/2012 Chronic tympanostomies, Dr. Kramer, ENT Chronic serous otitis media of both ears 12/22/2012 Chronic tympanostomies, Dr. 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 Kee Aceves Lumbar disc herniation 01/05/2014 Mild persistent asthma without complication 08/24/2022 Motion sickness Multinodular goiter 04/10/2023 Multiple fractures of ribs, bilateral, initial encounter for closed fracture 11/23/2019 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 02/02/2020 Obesity, unspecified 07/27/2005 YUDITH on CPAP 07/25/[address] Zepeda Pleural effusion on right 12/13/2019 s/p trauma, chest tube drainage PAST SURGICAL HISTORY Procedure Laterality Date ADENOIDECTOMY PRIMARY Adenoidectomy ARTHROSCOPY KNEE DIAGNOSTIC W/WO SYNOVIAL BX SPX Arthroscopy, knee COLONOSCOPY FLX DX W/COLLJ SPEC WHEN PFRMD 10/02/2010 PAST SURGICAL HISTORY OF Right 12/13/2019 chest tube due to trauma rib fracture and clavicle fracture SEPTOPLASTY/SUBMUCOUS RESECJ W/WO CARTILAGE GRF Septoplasty THYROID BIOPSY US 11/26/2020 TONSILLECTOMY PRIMARY/SECONDARY Tonsillectomy TYMPANOSTOMY GENERAL ANES BILA 05/07/2011 ALLERGIES Penicillins, Sulfa (Sulfonamide Antibiotics), and Tape [Adhesive Tape-Silicones] MEDICATIONS fluticasone (FLONASE) 50 mcg/actuation nasal sprayDisp: Rfl: Benazepril-hydroCHLOROthiazide 20-12.5 mg per tabletTake 2 tablets by mouth every morning.Disp: 180 tabletRfl: 3 metFORMIN (GLUCOPHAGE) 500 mg tabletTake 1 tablet by mouth daily with breakfast.Disp: 90 tabletRfl: 3 pravastatin (PRAVACHOL) 40 mg tabletTake 1 tablet by mouth daily at bedtime. For cholesterol.Disp: 90 tabletRfl: 3 fluticasone furoate (ARNUITY ELLIPTA) 100 mcg/actuation inhalerInhale 1 Puff as instructed once daily.Disp: 1 EachRfl: 5 doxazosin (CARDURA) 2 mg tabletTake 2 tablets by mouth daily at bedtime.Disp: 180 tabletRfl: 1 meloxicam (MOBIC) 15 mg tabletTake 1 tablet by mouth once daily. With food.Disp: 90 tabletRfl: 3 amLODIPine (NORVASC) 10 mg tabletTake 1 tablet by mouth once daily.Disp: 90 tabletRfl: 3 Potassium 99 mg tabTake 2 tablets by mouth twice daily.Disp: Rfl: Vqdxe-3-PZC-EPA-Fish Oil 1,000 mg (120 mg-180 mg) capTake 1 g by mouth once daily.Disp: Rfl: sodium chloride (SALINE NASAL NASAL)Use 1 [place] Pk in the nose as needed.Disp: Rfl: calcium carbonate (CALCIUM 600 ORAL)Take 1 tablet by mouth twice daily.Disp: Rfl: Lactobac comb 8-POY-bhzclrdred (PROBIOTIC AND ACIDOPHILUS) 300-250 million cell-mg capTake 1 capsule by mouth once daily. Disp: Rfl: 0 docusate sodium (COLACE) 100 mg capsuleTake 1 capsule by mouth once daily.Disp: Rfl: MULTIVITAMIN TABTake 1 tablet by mouth once daily. Disp: Rfl: 0 doxycycline (VIBRA-TABS) 100 mg tabletTake 1 tablet by mouth two times a day for 7 days.Disp: 14 tabletRfl: 0 FAMILY HISTORY Problem Relation Age of Onset Hypertension Mother Glaucoma Mother Cancer Father lymphoma, Hypertension Father Heart disease Maternal Grandfather Cancer Paternal Aunt Cancer Paternal Uncle Skin Cancer Paternal Uncle Asthma No Family History Social History Tobacco Use Smoking status: Never Smokeless tobacco: Never Vaping Use Vaping Use: Never used Substance Use Topics Alcohol use: Yes Comment: 1.5 liters of wine per week. Stopped 2013. Drug use: No Review of Systems Constitutional: Negative for fever. HENT: Positive for congestion and sinus pain. Negative for ear pain, nosebleeds and sore throat. Respiratory: Positive for cough. Negative for shortness of breath and wheezing. Musculoskeletal: Negative for neck pain. Objective Blood pressure 138/90, pulse 98, temperature 36.7 ?C (98.1 ?F), resp. rate 16, weight 131.1 kg (289 lb), SpO2 97 %. Physical Exam Constitutional: General: He is not in acute distress. Appearan (more content not included)... [facility] 04-28-2023 History of Presen t illness Narrative Subjective HPI HPI Reji Sarmiento is a 77 year old male who presents today for CC of sinus pain, cough, congestion. This started 11 days ago. Has tried otc medication for relief. Symptoms are worsened by nothing. Tested positive for covid. Nonsmoker. Hx of sinus infections. .Patient presents with: Cough: Continues to test postive for covid with at home test. X11 days. PAST MEDICAL HISTORY Diagnosis Date Allergies Previous IT Cholelithiasis 11/22/2019 Chronic rhinitis 12/22/2012 Chronic tympanostomies, Dr. Kramer, ENT Chronic serous otitis media of both ears 12/22/2012 Chronic tympanostomies, Dr. 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 Kee Aceves Lumbar disc herniation 01/05/2014 Mild persistent asthma without complication 08/24/2022 Motion sickness Multinodular goiter 04/10/2023 Multiple fractures of ribs, bilateral, initial encounter for closed fracture 11/23/2019 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 02/02/2020 Obesity, unspecified 07/27/2005 YUDITH on CPAP 07/25/[address] Zepeda Pleural effusion on right 12/13/2019 s/p trauma, chest tube drainage PAST SURGICAL HISTORY Procedure Laterality Date ADENOIDECTOMY PRIMARY <AGE 13 Adenoidectomy ARTHROSCOPY KNEE DIAGNOSTIC W/WO SYNOVIAL BX SPX Arthroscopy, knee COLONOSCOPY FLX DX W/COLLJ SPEC WHEN PFRMD 10/02/2010 PAST SURGICAL HISTORY OF Right 12/13/2019 chest tube due to trauma rib fracture and clavicle fracture SEPTOPLASTY/SUBMUCOUS RESECJ W/WO CARTILAGE GRF Septoplasty THYROID BIOPSY US 11/26/2020 TONSILLECTOMY PRIMARY/SECONDARY <AGE 13 Tonsillectomy TYMPANOSTOMY GENERAL ANES BILA 05/07/2011 ALLERGIES Penicillins, Sulfa (Sulfonamide Antibiotics), and Tape [Adhesive Tape-Silicones] MEDICATIONS fluticasone (FLONASE) 50 mcg/actuation nasal spray^^Disp: ^Rfl: Benazepril-hydroCHLOROthiazide 20-12.5 mg per tablet^Take 2 tablets by mouth every morning.^Disp: 180 tablet^Rfl: 3 metFORMIN (GLUCOPHAGE) 500 mg tablet^Take 1 tablet by mouth daily with breakfast.^Disp: 90 tablet^Rfl: 3 pravastatin (PRAVACHOL) 40 mg tablet^Take 1 tablet by mouth daily at bedtime. For cholesterol.^Disp: 90 tablet^Rfl: 3 fluticasone furoate (ARNUITY ELLIPTA) 100 mcg/actuation inhaler^Inhale 1 Puff as instructed once daily.^Disp: 1 Each^Rfl: 5 doxazosin (CARDURA) 2 mg tablet^Take 2 tablets by mouth daily at bedtime.^Disp: 180 tablet^Rfl: 1 meloxicam (MOBIC) 15 mg tablet^Take 1 tablet by mouth once daily. With food.^Disp: 90 tablet^Rfl: 3 amLODIPine (NORVASC) 10 mg tablet^Take 1 tablet by mouth once daily.^Disp: 90 tablet^Rfl: 3 Potassium 99 mg tab^Take 2 tablets by mouth twice daily.^Disp: ^Rfl: Shbgf-4-GQE-EPA-Fish Oil 1,000 mg (120 mg-180 mg) cap^Take 1 g by mouth once daily.^Disp: ^Rfl: sodium chloride (SALINE NASAL NASAL)^Use 1 [place] Pk in the nose as needed.^Disp: ^Rfl: calcium carbonate (CALCIUM 600 ORAL)^Take 1 tablet by mouth twice daily.^Disp: ^Rfl: Lactobac comb 6-SOR-auhjwnyysn (PROBIOTIC AND ACIDOPHILUS) 300-250 million cell-mg cap^Take 1 capsule by mouth once daily. ^Disp: ^Rfl: 0 docusate sodium (COLACE) 100 mg capsule^Take 1 capsule by mouth once daily.^Disp: ^Rfl: MULTIVITAMIN TAB^Take 1 tablet by mouth once daily. ^Disp: ^Rfl: 0 doxycycline (VIBRA-TABS) 100 mg tablet^Take 1 tablet by mouth two times a day for 7 days.^Disp: 14 tablet^Rfl: 0 FAMILY HISTORY Problem Relation Age of Onset Hypertension Mother Glaucoma Mother Cancer Father lymphoma, Hypertension Father Heart disease Maternal Grandfather Cancer Paternal Aunt Cancer Paternal Uncle Skin Cancer Paternal Uncle Asthma No Family History Social History Tobacco Use Smoking status: Never Smokeless tobacco: Never Vaping Use Vaping Use: Never used Substance Use Topics Alcohol use: Yes Comment: 1.5 liters of wine per week. Stopped 2013. Drug use: No Review of Systems Constitutional: Negative for fever. HENT: Positive for congestion and sinus pain. Negative for ear pain, nosebleeds and sore throat. Respiratory: Positive for cough. Negative for shortness of breath and wheezing. Musculoskeletal: Negative for neck pain. Objective Blood pressure 138/90, pulse 98, temperature 36.7 C (98.1 F), resp. rate 16, weight 131.1 kg (289 lb), SpO2 97 %. Physical Exam Constitutional: General: He is not in acute distress. Appearance: He is not toxic-appearing or diaphoretic. HENT: Head: Normocephalic and atraumatic. Nose: Left Sinus: Maxillary sinus tenderness and frontal sinus tenderness present. Cardiovascular: Rate and Rhythm: Normal rate and regular rhythm. Heart sounds: Normal heart sounds, S1 normal and S2 normal. Pulmonary: Effort: Pulmonary effort is normal. Breath sounds: Normal breath sounds. Lymphadenopathy: Cervical: No cervical adenopathy. Right cervical: No superficial cervical adenopathy. Left cervical: No superficial cervical adenopathy. Neurological: Mental Status: He is alert and oriented to person, place, and time. Gait: Gait is intact. ASSESSMENT/PLAN: 1. Bacterial sinusitis - ICD9: 473.9, 041.9, ICD10: J32.9, B96.89 - Will begin treatment with as per antibiotic as written, see orders - Supportive care with plenty of fluids, rest, and analgesia prn. - Follow up in 3-5 days if symptoms persist or worsen. - DOXYCYCLINE HYCLATE 100 MG TABLET [place] Srinivasan APRN.ELECTRODE [employer]NER AND FINISHER documented in this encounter [facility] 04-19-2023 Note HNO ID: [id number] Author: Karli Dupree MD Service: ? Author Type: Physician Type: Progress Notes Filed: 04/19/2023 7:57 PM Note Text: Reji Sarmiento 1945 REFERRING PHYSICIAN: Nando Plummer MD CHIEF COMPLAINT: Consult (Thyroid nodule/ FNA recommended) HPI: The patient is a 77 year old male presents with abnormal ultrasound of thyroid He denies globus symptoms. He denies hoarseness. He denies thyroid cancer in the family. He had been seen by Dr. Bailey in 2020 with FNA findings of benign left thyroid nodule at [facility] US - inferior right 2.3 cm; left mid 2.8 cm PAST MEDICAL HISTORY Diagnosis Date Allergies Previous IT Cholelithiasis 11/22/2019 Chronic rhinitis 12/22/2012 Chronic tympanostomies, Dr. Kramer, ENT Chronic serous otitis media of both ears 12/22/2012 Chronic tympanostomies, Dr. 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 Kee Aceves Lumbar disc herniation 01/05/2014 Mild persistent asthma without complication 08/24/2022 Motion sickness Multinodular goiter 04/10/2023 Multiple fractures of ribs, bilateral, initial encounter for closed fracture 11/23/2019 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 02/02/2020 Obesity, unspecified 07/27/2005 YUDITH on CPAP 07/25/[address] Zepeda Pleural effusion on right 12/13/2019 s/p trauma, chest tube drainage PAST SURGICAL HISTORY Procedure Laterality Date ADENOIDECTOMY PRIMARY Adenoidectomy ARTHROSCOPY KNEE DIAGNOSTIC W/WO SYNOVIAL BX SPX Arthroscopy, knee COLONOSCOPY FLX DX W/COLLJ SPEC WHEN PFRMD 10/02/2010 PAST SURGICAL HISTORY OF Right 12/13/2019 chest tube due to trauma rib fracture and clavicle fracture SEPTOPLASTY/SUBMUCOUS RESECJ W/WO CARTILAGE GRF Septoplasty THYROID BIOPSY US 11/26/2020 TONSILLECTOMY PRIMARY/SECONDARY Tonsillectomy TYMPANOSTOMY GENERAL ANES BILA 05/07/2011 Current Outpatient Medications Medication Sig fluticasone (FLONASE) 50 mcg/actuation nasal spray Benazepril-hydroCHLOROthiazide 20-12.5 mg per tablet Take 2 tablets by mouth every morning. metFORMIN (GLUCOPHAGE) 500 mg tablet Take 1 tablet by mouth daily with breakfast. fluticasone furoate (ARNUITY ELLIPTA) 100 mcg/actuation inhaler Inhale 1 Puff as instructed once daily. doxazosin (CARDURA) 2 mg tablet Take 2 tablets by mouth daily at bedtime. meloxicam (MOBIC) 15 mg tablet Take 1 tablet by mouth once daily. With food. amLODIPine (NORVASC) 10 mg tablet Take 1 tablet by mouth once daily. Potassium 99 mg tab Take 2 tablets by mouth twice daily. Lkaix-1-NHA-EPA-Fish Oil 1,000 mg (120 mg-180 mg) cap Take 1 g by mouth once daily. sodium chloride (SALINE NASAL NASAL) Use 1 [place] Pk in the nose as needed. calcium carbonate (CALCIUM 600 ORAL) Take 1 tablet by mouth twice daily. Lactobac comb 2-[id number]-mplreythpw (PROBIOTIC AND ACIDOPHILUS) 300-250 million cell-mg cap Take 1 capsule by mouth once daily. docusate sodium (COLACE) 100 mg capsule Take 1 capsule by mouth once daily. MULTIVITAMIN TAB Take 1 tablet by mouth once daily. pravastatin (PRAVACHOL) 40 mg tablet Take 1 tablet by mouth daily at bedtime. For cholesterol. (Patient not taking: Reported on 04/19/2023) ALLERGIES: Penicillins, Sulfa (Sulfonamide Antibiotics), and Tape [Adhesive Tape-Silicones] PERSONAL HISTORY: Social History Tobacco Use Smoking status: Never Smokeless tobacco: Never Vaping Use Vaping Use: Never used Substance Use Topics Alcohol use: Yes Comment: 1.5 liters of wine per week. Stopped 2013. Drug use: No FAMILY HISTORY Problem Relation Age of Onset Hypertension Mother Glaucoma Mother Cancer Father lymphoma, Hypertension Father Heart disease Maternal Grandfather Cancer Paternal Aunt Cancer Paternal Uncle Skin Cancer Paternal Uncle Asthma No Family History The review of systems data was entered by the nurse and reviewed by tn Nursing Notes: Sailaja Hdez LPN 04/19/2023 9:18 AM Signed REVIEW OF SYSTEMS: General: The patient NOTES fatigue, denies weight loss, NOTES weight gain, denies feeling hot, and denies feelings of cold. Eyes: The patient denies glaucoma, denies eye injury/surgery, wears glasses or contacts. Ear/Nose/Throat: The patient NOTES allergies, denies hayfever, denies ear infections, and denies bloody noses. Cardiovascular: The patient denies chest pain, NOTES heart disease, NOTES high blood pressure,denies cardiac stent, denies prior heart attack, denies irregular heart (more content not included)... [facility] 04-19-2023 History of Presen t illness Narrative Reji Marcel Sarmiento 1945 REFERRING PHYSICIAN: Nando Plummer MD CHIEF COMPLAINT: Consult (Thyroid nodule/ FNA recommended) HPI: The patient is a 77 year old male presents with abnormal ultrasound of thyroid He denies globus symptoms. He denies hoarseness. He denies thyroid cancer in the family. He had been seen by Dr. Bailey in 2020 with FNA findings of benign left thyroid nodule at [facility] US - inferior right 2.3 cm; left mid 2.8 cm PAST MEDICAL HISTORY Diagnosis Date Allergies Previous IT Cholelithiasis 11/22/2019 Chronic rhinitis 12/22/2012 Chronic tympanostomies, Dr. Kramer, ENT Chronic serous otitis media of both ears 12/22/2012 Chronic tympanostomies, Dr. 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 Kee Aceves Lumbar disc herniation 01/05/2014 Mild persistent asthma without complication 08/24/2022 Motion sickness Multinodular goiter 04/10/2023 Multiple fractures of ribs, bilateral, initial encounter for closed fracture 11/23/2019 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 02/02/2020 Obesity, unspecified 07/27/2005 YUDITH on CPAP 07/25/[address] Zepeda Pleural effusion on right 12/13/2019 s/p trauma, chest tube drainage PAST SURGICAL HISTORY Procedure Laterality Date ADENOIDECTOMY PRIMARY <AGE 13 Adenoidectomy ARTHROSCOPY KNEE DIAGNOSTIC W/WO SYNOVIAL BX SPX Arthroscopy, knee COLONOSCOPY FLX DX W/COLLJ SPEC WHEN PFRMD 10/02/2010 PAST SURGICAL HISTORY OF Right 12/13/2019 chest tube due to trauma rib fracture and clavicle fracture SEPTOPLASTY/SUBMUCOUS RESECJ W/WO CARTILAGE GRF Septoplasty THYROID BIOPSY US 11/26/2020 TONSILLECTOMY PRIMARY/SECONDARY <AGE 13 Tonsillectomy TYMPANOSTOMY GENERAL ANES BILA 05/07/2011 Current Outpatient Medications Medication Sig fluticasone (FLONASE) 50 mcg/actuation nasal spray Benazepril-hydroCHLOROthiazide 20-12.5 mg per tablet Take 2 tablets by mouth every morning. metFORMIN (GLUCOPHAGE) 500 mg tablet Take 1 tablet by mouth daily with breakfast. fluticasone furoate (ARNUITY ELLIPTA) 100 mcg/actuation inhaler Inhale 1 Puff as instructed once daily. doxazosin (CARDURA) 2 mg tablet Take 2 tablets by mouth daily at bedtime. meloxicam (MOBIC) 15 mg tablet Take 1 tablet by mouth once daily. With food. amLODIPine (NORVASC) 10 mg tablet Take 1 tablet by mouth once daily. Potassium 99 mg tab Take 2 tablets by mouth twice daily. Kydmp-7-VJA-EPA-Fish Oil 1,000 mg (120 mg-180 mg) cap Take 1 g by mouth once daily. sodium chloride (SALINE NASAL NASAL) Use 1 [place] Pk in the nose as needed. calcium carbonate (CALCIUM 600 ORAL) Take 1 tablet by mouth twice daily. Lactobac comb 3-XJR-vcrrgoupkv (PROBIOTIC AND ACIDOPHILUS) 300-250 million cell-mg cap Take 1 capsule by mouth once daily. docusate sodium (COLACE) 100 mg capsule Take 1 capsule by mouth once daily. MULTIVITAMIN TAB Take 1 tablet by mouth once daily. pravastatin (PRAVACHOL) 40 mg tablet Take 1 tablet by mouth daily at bedtime. For cholesterol. (Patient not taking: Reported on 04/19/2023) ALLERGIES: Penicillins, Sulfa (Sulfonamide Antibiotics), and Tape [Adhesive Tape-Silicones] PERSONAL HISTORY: Social History Tobacco Use Smoking status: Never Smokeless tobacco: Never Vaping Use Vaping Use: Never used Substance Use Topics Alcohol use: Yes Comment: 1.5 liters of wine per week. Stopped 2013. Drug use: No FAMILY HISTORY Problem Relation Age of Onset Hypertension Mother Glaucoma Mother Cancer Father lymphoma, Hypertension Father Heart disease Maternal Grandfather Cancer Paternal Aunt Cancer Paternal Uncle Skin Cancer Paternal Uncle Asthma No Family History The review of systems data was entered by the nurse and reviewed by me Nursing Notes: Sailaja Hdez LPN 04/19/2023 9:18 AM Signed REVIEW OF SYSTEMS: General: The patient NOTES fatigue, denies weight loss, NOTES weight gain, denies feeling hot, and denies feelings of cold. Eyes: The patient denies glaucoma, denies eye injury/surgery, wears glasses or contacts. Ear/Nose/Throat: The patient NOTES allergies, denies hayfever, denies ear infections, and denies bloody noses. Cardiovascular: The patient denies chest pain, NOTES heart disease, NOTES high blood pressure,denies cardiac stent, denies prior heart attack, denies irregular heart beat, NOTES high cholesterol, denies poor circulation, denies heart failure, NOTES other cardiac issues, denies claudication, denies cold feet, denies peripheral arterial stent. Respiratory: The patient denies tuberculosis, denies pneumonia, NOTES frequent cough, denies pulmonary embolism, NOTES shortness of breath, and denies coughing up blood, NOTES asthma Gastrointestinal: The patient NOTES difficulty swallowing, denies acid reflux, denies ulcers, denies vomiting, denies jaundice/hepatitis, denies gallbladder problems, denies black or tarry stools, NOTES hemorrhoids, denies bleeding from rectum, denies diverticulitis, denies constipation, denies diarrhea, denies loss of stool control, and denies hernias. Kidney/Bladder: The patient NOTES kidney stones, denies urine infections, and denies bloody urine. Skin: The patient denies a history of skin cancer, denies bleeding/changing moles, and denies a history of skin rash. Neurologic: The patient denies a history of epilepsy/convulsions, denies headaches, denies head/spinal injuries, and denies stroke/TIA. Psychiatric: The patient denies psychiatric medications, denies depression, and denies voices, denies substance abuse. Endocrine: The patient NOTES thyroid disorders, NOTES diabetes, and denies hormonal problems. Hematologic: The patient denies a history of bruising, denies bleeding, and denies anemia, denies blood clots. Infections: The patient NOTES a history of measles and mumps, denies rheumatic fever, and denies sexually transmitted diseases. Musculoskeletal: The patient denies back pain/injury, NOTES back problems, denies sciatica, denies knee/foot trouble, NOTES arthritis, or denies gout. When was patient's last Mammogram screening? N/A Last Colonoscopy: 2020 Sailaja Hdez LPN PHYSICAL EXAMINATION: General: The patient is 77 year old male, well nourished, well hydrated in no acute distress. The patient is oriented to time, place, and person. VITALS: Blood pressure 134/86, pulse 99, temperature 36.7 C (98.1 F), height 175.3 cm (5' 9 ), weight 131.8 kg (290 lb 9.6 oz), SpO2 94 %. Body mass index is 42.91 kg/m . Head: Normal cephalic, atraumatic Eyes: pupils are equally round, sclera are clear/anicteric, wearing glasses Neck is supple with no tracheal deviation Respiratory: Normal respiratory excursion and pattern. Abdominal exam: obese and benign Extremities: no clubbing, cyanosis or edema. Neuro: non focal Psych: normal mood Assessment IMPRESSION: abnormal ultrasound of thyroid PLAN: I have discussed the above with the patient. I have recommended US guided FNA of right and left thyroid nodule - [facility] (I have personally called [facility] to have patient scheduled) I will call the patient with the results The patient acknowledges the above I have answered all questions to the patient s satisfaction and the patient has no further questions. I have confirmed and edited as necessary, the PFSH and ROS obtained by others. Consultation requested by Dr. Nando Plummer for an opinion regarding patient's abnormal ultrasound of thyroid. My final recommendations will be communicated back to the requesting physician by way of shared Medical record or letter to requesting physician via [place] mail. . Diagnoses: (R93.89) Abnormal ultrasound of thyroid gland (E04.2) Multinodular goiter I spent a total of 26 minutes on the date of the service which included preparing to see the patient with review of any pertinent laboratory studies/radiological imaging/medical records, [id number] patient care, obtaining oral medical history from the patient in this encounter, counseling and educating the patient/family/caregiver, and ordering and/or scheduling of medications/tests/procedures, and completing appropriate medical documentation. Karli Dupree MD documented in this encounter [facility] 04-19-2023 Nurse Note REVIEW OF SYSTEMS: General: The patient NOTES fatigue, denies weight loss, NOTES weight gain, denies feeling hot, and denies feelings of cold. Eyes: The patient denies glaucoma, denies eye injury/surgery, wears glasses or contacts. Ear/Nose/Throat: The patient NOTES allergies, denies hayfever, denies ear infections, and denies bloody noses. Cardiovascular: The patient denies chest pain, NOTES heart disease, NOTES high blood pressure,denies cardiac stent, denies prior heart attack, denies irregular heart beat, NOTES high cholesterol, denies poor circulation, denies heart failure, NOTES other cardiac issues, denies claudication, denies cold feet, denies peripheral arterial stent. Respiratory: The patient denies tuberculosis, denies pneumonia, NOTES frequent cough, denies pulmonary embolism, NOTES shortness of breath, and denies coughing up blood, NOTES asthma Gastrointestinal: The patient NOTES difficulty swallowing, denies acid reflux, denies ulcers, denies vomiting, denies jaundice/hepatitis, denies gallbladder problems, denies black or tarry stools, NOTES hemorrhoids, denies bleeding from rectum, denies diverticulitis, denies constipation, denies diarrhea, denies loss of stool control, and denies hernias. Kidney/Bladder: The patient NOTES kidney stones, denies urine infections, and denies bloody urine. Skin: The patient denies a history of skin cancer, denies bleeding/changing moles, and denies a history of skin rash. Neurologic: The patient denies a history of epilepsy/convulsions, denies headaches, denies head/spinal injuries, and denies stroke/TIA. Psychiatric: The patient denies psychiatric medications, denies depression, and denies voices, denies substance abuse. Endocrine: The patient NOTES thyroid disorders, NOTES diabetes, and denies hormonal problems. Hematologic: The patient denies a history of bruising, denies bleeding, and denies anemia, denies blood clots. Infections: The patient NOTES a history of measles and mumps, denies rheumatic fever, and denies sexually transmitted diseases. Musculoskeletal: The patient denies back pain/injury, NOTES back problems, denies sciatica, denies knee/foot trouble, NOTES arthritis, or denies gout. When was patient's last Mammogram screening? N/A Last Colonoscopy: 2020 Sailaja Hdez LPN documented in this encounter [facility] 04-13-2023 Miscellaneous Notes Pt scheduled for consultation to general surgery on 06/[address] Dupree Thank you, Dafne Please contact patient to schedule. He has been notified via [employer] ASSESSMENT/PLAN: 1. Multinodular goiter - ICD9: 241.1, ICD10: E04.2 - CONSULT TO GENERAL SURGERY Nando Plummer MD documented in this encounter [facility] 04-06-2023 Note HNO ID: [id number] Author: Bertha Romero RDMS Service: ? Author Type: Rental Car Porter Type: Progress Notes Filed: 04/06/2023 11:11 AM Note Text: Radiology Service Progress Note PATIENT NAME: Reji Sarmiento DATE OF SERVICE: April 06, 2023 TIME: 11:11 AM PATIENT IDENTITY VERIFICATION COMPLETED USING TWO (2) IDENTIFIERS: Name and Date of confirmed by patient verbally. FALL SCREENING: Has the patient had 2 falls in the last year or 1 fall with injury or currently using an Ambulatory Assistive Device (Walker, Cane, Wheelchair, Crutches, etc.)? No PATIENT GENDER DATA: Male PATIENT RELEVANT IMPLANT DATA REVIEWED: Not Applicable RADIOLOGY DEPARTMENT: Ultrasound PERIPHERAL IV DATA: Not applicable SIGNED BY: Bertha Romero RDMS April 06, 2023 11:11 AM [facility] 04-06-2023 History of Presen t illness Narrative Radiology Service Progress Note PATIENT NAME: Reji Sarmiento DATE OF SERVICE: April 06, 2023 TIME: 11:11 AM PATIENT IDENTITY VERIFICATION COMPLETED USING TWO (2) IDENTIFIERS: Name and Date of confirmed by patient verbally. FALL SCREENING: Has the patient had 2 falls in the last year or 1 fall with injury or currently using an Ambulatory Assistive Device (Walker, Cane, Wheelchair, Crutches, etc.)? No PATIENT GENDER DATA: Male PATIENT RELEVANT IMPLANT DATA REVIEWED: Not Applicable RADIOLOGY DEPARTMENT: Ultrasound PERIPHERAL IV DATA: Not applicable SIGNED BY: Bertha Romero RDMS April 06, 2023 11:11 AM documented in this encounter [facility] 03-30-2023 Note HNO ID: [id number] Author: Nando Plummer MD Service: ? Author Type: Physician Type: Progress Notes Filed: 03/30/2023 1:36 PM Note Text: This note was created using MYTRND[employer]. Subjective Reji Sarmiento is a 77 year old male. He continued with progressing dyspnea on exertion and easy fatigability. Pulmonary evaluation raised concern for cardiac cause, and echocardiogram showed mild pulmonary hypertension, diastolic dysfunction, and mild MR and AR. Cardiology was recommended but earliest was out to August 2023. Recurring muscle cramps, various locations in trunk and legs were occurring almost daily. Edema was more bothersome, especially with prolonged standing or walking. He had also not followed up on his thyroid nodule. Review of Systems Constitutional: Positive for activity change and fatigue. Negative for chills, diaphoresis, fever and unexpected weight change. HENT: Negative. Eyes: Negative for visual disturbance. Respiratory: Positive for shortness of breath. Negative for cough, chest tightness and wheezing. Cardiovascular: Positive for leg swelling. Negative for chest pain and palpitations. Gastrointestinal: Negative. Genitourinary: Negative. Musculoskeletal: Positive for myalgias. Neurological: Negative for dizziness and headaches. 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 Physical Exam Constitutional: General: He is not in acute distress. Appearance: He is not ill-appearing. HENT: Head: Normocephalic. Eyes: Conjunctiva/sclera: Conjunctivae normal. Neck: Thyroid: No thyromegaly. Cardiovascular: Rate and Rhythm: Normal rate and regular rhythm. Heart sounds: S1 normal and S2 normal. Murmur heard. Systolic murmur is present with a grade of 1/6. Comments: ELIOT at LSB Pulmonary: Effort: No respiratory distress. Breath sounds: No wheezing or rales. Abdominal: Palpations: Abdomen is soft. Tenderness: There is no abdominal tenderness. Musculoskeletal: Cervical back: No tenderness. Right lower le+ Pitting Edema present. Left lower le+ Pitting Edema present. Lymphadenopathy: Cervical: No cervical adenopathy. Neurological: General: No focal deficit present. Mental Status: He is alert. Component Latest Ref Rng AND Units 03/26/2023 WBC 3.70 - 11.00 k/uL 4.91 RBC 4.20 - 6.00 m/uL 4.53 Hemoglobin 13.0 - 17.0 g/dL 14.2 Hematocrit 39.0 - 51.0 % 41.0 MCV 80.0 - 100.0 fL 90.5 MCH 26.0 - 34.0 pg 31.3 MCHC 30.5 - 36.0 g/dL 34.6 RDW-CV 11.5 - 15.0 % 12.0 Platelet Count 150 - 400 k/uL 180 MPV 9.0 - 12.7 fL 10.0 Absolute nRBC <0.01 k/uL <0.01 Glucose 74 - 99 mg/dL 115 (H) BUN 9 - 24 mg/dL 16 Creatinine 0.73 - 1.22 mg/dL 0.86 Sodium 136 - 144 mmol/L 137 Potassium 3.7 - 5.1 mmol/L 3.9 Chloride 97 - 105 mmol/L 102 CO2 22 - 30 mmol/L 25 Anion Gap 9 - 18 mmol/L 10 Calcium 8.5 - 10.2 mg/dL 8.9 eGFR >=60 mL/min/1.73mA? 90 Hemoglobin A1C 4.3 - 5.6 % 5.6 Estimated Average Glucose mg/dL 114 Magnesium 1.7 - 2.3 mg/dL 2.0 Assessment and Plan 1. Medicare annual wellness visit, subsequent - ICD9: V70.0, ICD10: Z00.00 (primary diagnosis) See wellness note. 2. Essential hypertension - ICD9: 401.9, ICD10: I10 - Controlled - Continue current medications - Encouraged sodium restriction, DASH or Mediterranean diet - Discussed need for and benefit of weight loss. BMI 45.26 kg/(m2) - BENAZEPRIL 20 MG-HYDROCHLOROTHIAZIDE 12.5 MG TABLET 3. 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) - ICD9: 250.60, 357.2, ICD10: E11.40 - Controlled - Continue current medications - METFORMIN 500 MG TABLET - COMP METABOLIC PANEL - HGB A1C - ALBUMIN/CREAT RATIO RND UR 4. Hyperlipidemia, unspecified hyperlipidemia type - ICD9: 272.4, ICD10: E78.5 - Controlled - See instructions for #9. - PRAVASTATIN 40 MG TABLET - LIPID PANEL BASIC 5. 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 - ICD9: 241.0, ICD10: E04.1 He declined surgery referral but agreed to recheck US. - US THYROID/PARATHYROID 6. Heart murmur - ICD9: 785.2, ICD10: R01.1 Shared medical decision making was done, and we agreed to [facility]. - CONSULT TO CARDIOLOGY 7. Dyspnea on exertion - ICD9: 786.09, ICD10: R06.09 See above. Anticipate CV stress testing. - CONSULT TO CARDIOLOGY 8. Edema of both legs - ICD9: 782.3, ICD10: R60.0 - COMPRESSION STOCKINGS 9. Muscle cramp (more content not included)... [facility] 03-30-2023 Note HNO ID: [id number] Author: Nando Plummer MD Service: ? Author Type: Physician Type: Progress Notes Filed: 03/30/2023 1:36 PM Note Text: Reji Sarmiento is a 77 year old male here for a Medicare wellness visit. Medicare Health Risk Assessment General Health Poor Exercise: Minutes/Day 10 min Exercise: Days/Week 2 days Alcohol: Daily Use Never Alcohol: Drinks/Day Patient does not drink Alcohol: 6 or more drinks Never Feel off balance Yes Concerns: Teeth/Dentures Yes Concerns: Sexual function No Troubled by feelings None of the above Frequency: Eating healthy diet Nearly every day ADLs requiring help Sitting or standing Safety precautions in home/vehicle Yes Smoke, vape, chews tobacco No Difficulty hearing Yes, I wear a hearing aid Difficulty seeing Yes Current Providers Specialists: I have reviewed specialist-related care of the patient in the medical record. Current care team: Patient Care Team: Nando Plummer MD as PCP - General Outside specialists seen: Dr. Grady, ophthalmology. Dr. Kee Aceves, dermatology. Dr. Smallwood, [facility]. Audiology. Dr. Kimberly Hdez, pulmonary. Medical/Family history review Reviewed and updated problem list, medical/surgical/family/social history, medications, and allergies. Opioid use review Opioid Medications (last 90 days) Some values may be hidden. Unless noted otherwise, only the newest values recorded on each date are displayed. Opioid Medications No data to display. Depression screening Depression Screening PHQ-2 Score PHQ-9 Score 09/23/2022 0 - Depression screening tool completed and reviewed. Based on score and interview, patient is not at risk for depression. Screening tool discussed with patient, and I recommended no further intervention at this time. Time spent in depression screening and assessment: < 5 minutes. Cognitive screening Mini Cog Score: 5 Functional Observation Was the patient's timed Up AND Go test unsteady or ? 12 seconds? No Advance Care Planning Patient did not wish or was not able to name a surrogate decision maker or provide an advance care plan Measurements BP 131/75 Pulse 65 Resp 18 Ht 5' 7 (1.70m) Wt 289 lb (131.1kg) BMI 45.25 kg/(m2). Additional screenings: Vision Screening Right eye - Without correction: With correction: 20/20 Left eye - Without correction: With correction: 20/25 Both eyes - Without correction: With correction: 20/25 Assessment/Plan Medicare annual wellness visit, subsequent (Z00.00) - Counseled on healthy diet and regular exercise - Fall avoidance information provided - Personalized prevention plan provided - Discussed need for and benefit of weight loss. BMI 45.26 kg/(m2) [facility] 03-30-2023 Instructions Nando Plummer MD - 03/30/2023 11:37 AM EDT KEEP A DIARY OF MUSCLE CRAMPS. Stop PRAVASTATIN for 2 weeks. See if muscle cramps improve. Restart PRAVASTATIN and see if muscle cramps worsen. If there is correlation, message for a change in cholesterol medication. If no correlation, continue the same cholesterol lowering medication. documented in this encounter [facility] 03-30-2023 History of Presen t illness Narrative This note was created using [employer]. Subjective Reji Sarmiento is a 77 year old male. He continued with progressing dyspnea on exertion and easy fatigability. Pulmonary evaluation raised concern for cardiac cause, and echocardiogram showed mild pulmonary hypertension, diastolic dysfunction, and mild MR and AR. Cardiology was recommended but earliest was out to August 2023. Recurring muscle cramps, various locations in trunk and legs were occurring almost daily. Edema was more bothersome, especially with prolonged standing or walking. He had also not followed up on his thyroid nodule. Review of Systems Constitutional: Positive for activity change and fatigue. Negative for chills, diaphoresis, fever and unexpected weight change. HENT: Negative. Eyes: Negative for visual disturbance. Respiratory: Positive for shortness of breath. Negative for cough, chest tightness and wheezing. Cardiovascular: Positive for leg swelling. Negative for chest pain and palpitations. Gastrointestinal: Negative. Genitourinary: Negative. Musculoskeletal: Positive for myalgias. Neurological: Negative for dizziness and headaches. 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 Appearance: He is not ill-appearing. HENT: Head: Normocephalic. Eyes: Conjunctiva/sclera: Conjunctivae normal. Neck: Thyroid: No thyromegaly. Cardiovascular: Rate and Rhythm: Normal rate and regular rhythm. Heart sounds: S1 normal and S2 normal. Murmur heard. Systolic murmur is present with a grade of 1/6. Comments: ELIOT at LSB Pulmonary: Effort: No respiratory distress. Breath sounds: No wheezing or rales. Abdominal: Palpations: Abdomen is soft. Tenderness: There is no abdominal tenderness. Musculoskeletal: Cervical back: No tenderness. Right lower le+ Pitting Edema present. Left lower le+ Pitting Edema present. Lymphadenopathy: Cervical: No cervical adenopathy. Neurological: General: No focal deficit present. Mental Status: He is alert. Component Latest Ref Rng & Units 03/26/2023 WBC 3.70 - 11.00 k/uL 4.91 RBC 4.20 - 6.00 m/uL 4.53 Hemoglobin 13.0 - 17.0 g/dL 14.2 Hematocrit 39.0 - 51.0 % 41.0 MCV 80.0 - 100.0 fL 90.5 MCH 26.0 - 34.0 pg 31.3 MCHC 30.5 - 36.0 g/dL 34.6 RDW-CV 11.5 - 15.0 % 12.0 Platelet Count 150 - 400 k/uL 180 MPV 9.0 - 12.7 fL 10.0 Absolute nRBC <0.01 k/uL <0.01 Glucose 74 - 99 mg/dL 115 (H) BUN 9 - 24 mg/dL 16 Creatinine 0.73 - 1.22 mg/dL 0.86 Sodium 136 - 144 mmol/L 137 Potassium 3.7 - 5.1 mmol/L 3.9 Chloride 97 - 105 mmol/L 102 CO2 22 - 30 mmol/L 25 Anion Gap 9 - 18 mmol/L 10 Calcium 8.5 - 10.2 mg/dL 8.9 eGFR >=60 mL/min/1.73m 90 Hemoglobin A1C 4.3 - 5.6 % 5.6 Estimated Average Glucose mg/dL 114 Magnesium 1.7 - 2.3 mg/dL 2.0 Assessment and Plan 1. Medicare annual wellness visit, subsequent - ICD9: V70.0, ICD10: Z00.00 (primary diagnosis) See wellness note. 2. Essential hypertension - ICD9: 401.9, ICD10: I10 - Controlled - Continue current medications - Encouraged sodium restriction, DASH or Mediterranean diet - Discussed need for and benefit of weight loss. BMI 45.26 kg/(m^2) - BENAZEPRIL 20 MG-HYDROCHLOROTHIAZIDE 12.5 MG TABLET 3. 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) - ICD9: 250.60, 357.2, ICD10: E11.40 - Controlled - Continue current medications - METFORMIN 500 MG TABLET - COMP METABOLIC PANEL - HGB A1C - ALBUMIN/CREAT RATIO RND UR 4. Hyperlipidemia, unspecified hyperlipidemia type - ICD9: 272.4, ICD10: E78.5 - Controlled - See instructions for #9. - PRAVASTATIN 40 MG TABLET - LIPID PANEL BASIC 5. 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 - ICD9: 241.0, ICD10: E04.1 He declined surgery referral but agreed to recheck US. - US THYROID/PARATHYROID 6. Heart murmur - ICD9: 785.2, ICD10: R01.1 Shared medical decision making was done, and we agreed to [facility]. - CONSULT TO CARDIOLOGY 7. Dyspnea on exertion - ICD9: 786.09, ICD10: R06.09 See above. Anticipate CV stress testing. - CONSULT TO CARDIOLOGY 8. Edema of both legs - ICD9: 782.3, ICD10: R60.0 - COMPRESSION STOCKINGS 9. Muscle cramps - ICD9: 729.82, ICD10: R25.2 Stop then rechallenge with pravastatin. See printed instructions or information. Nando Plummer MD Reji Sarmiento is a 77 year old male here for a Medicare wellness visit. Medicare Health Risk Assessment General Health Poor Exercise: Minutes/Day 10 min Exercise: Days/Week 2 days Alcohol: Daily Use Never Alcohol: Drinks/Day Patient does not drink Alcohol: 6 or more drinks Never Feel off balance Yes Concerns: Teeth/Dentures Yes Concerns: Sexual function No Troubled by feelings None of the above Frequency: Eating healthy diet Nearly every day ADLs requiring help Sitting or standing Safety precautions in home/vehicle Yes Smoke, vape, chews tobacco No Difficulty hearing Yes, I wear a hearing aid Difficulty seeing Yes Current Providers Specialists: I have reviewed specialist-related care of the patient in the medical record. Current care team: Patient Care Team: Nando Plummer MD as PCP - General Outside specialists seen: Dr. Grady, ophthalmology. Dr. Kee Aceves, dermatology. [facility]. Audiology. Dr. Kimberly Hdez, pulmonary. Medical/Family history review Reviewed and updated problem list, medical/surgical/family/social history, medications, and allergies. Opioid use review Opioid Medications (last 90 days) Some values may be hidden. Unless noted otherwise, only the newest values recorded on each date are displayed. Opioid Medications No data to display. Depression screening Depression Screening PHQ-2 Score PHQ-9 Score 09/23/2022 0 - Depression screening tool completed and reviewed. Based on score and interview, patient is not at risk for depression. Screening tool discussed with patient, and I recommended no further intervention at this time. Time spent in depression screening and assessment: < 5 minutes. Cognitive screening Mini Cog Score: 5 Functional Observation Was the patient's timed Up & Go test unsteady or ? 12 seconds? No Advance Care Planning Patient did not wish or was not able to name a surrogate decision maker or provide an advance care plan Measurements BP 131/75 Pulse 65 Resp 18 Ht 5' 7 (1.70m) Wt 289 lb (131.1kg) BMI 45.25 kg/(m^2). Additional screenings: Vision Screening Right eye - Without correction: With correction: 20/20 Left eye - Without correction: With correction: 20/25 Both eyes - Without correction: With correction: 20/25 Assessment/Plan Medicare annual wellness visit, subsequent (Z00.00) - Counseled on healthy diet and regular exercise - Fall avoidance information provided - Personalized prevention plan provided - Discussed need for and benefit of weight loss. BMI 45.26 kg/(m^2) documented in this encounter [facility] 03-04-2023 Note HNO ID: [id number] Author: Sahara Andrade PA-C Service: ? Author Type: Physician Dumper Operator Type: Progress Notes Filed: 03/04/2023 10:32 AM Note Text: Patient: Reji Sarmiento PCP: Nando Plummer MD CC: follow HPI: Reji Sarmiento 77 year old morbidly obese male non-smoker with PMH significant for DM2, HTN, YUDITH on CPAP, chronic rhinitis, asthma, and history of atopy. Current therapy consists of Arnuity with as needed Albuterol. Today, patient reports occasional cough, but not on a daily basis. Wheezing has improved. Exertional dyspnea with walking long distances and climbing stairs. Ambulates with a hickey and is limited by hip/arthritis pain. Using Flonase daily with seasonal allergies. Chronic swelling in feet. Has to wear shoes that do not lace up. Wears CPAP with all sleep. PAST MEDICAL HISTORY Diagnosis Date Allergies Previous IT Cholelithiasis 11/22/2019 Chronic rhinitis 12/22/2012 Chronic tympanostomies, Dr. Kramer, ENT Chronic serous otitis media of both ears 12/22/2012 Chronic tympanostomies, Dr. 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 Kee Aceves Lumbar disc herniation 01/05/2014 Mild persistent asthma without complication 08/24/2022 Motion sickness Multiple fractures of ribs, bilateral, initial encounter for closed fracture 11/23/2019 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 02/02/2020 Obesity, unspecified 07/27/2005 YUDITH on CPAP 07/25/[address] Zepeda Pleural effusion on right 12/13/2019 s/p trauma, chest tube drainage Allergies: Penicillins Anaphylaxis Sulfa (Sulfonamide * Anaphylaxis Tape [Adhesive Tape* Rash Comment:JUST SURGICAL FOAM TAPE doxazosin (CARDURA) 2 mg tabletTake 2 tablets by mouth daily at bedtime.Disp: 180 tabletRfl: 1 meloxicam (MOBIC) 15 mg tabletTake 1 tablet by mouth once daily. With food.Disp: 90 tabletRfl: 3 Benazepril-hydroCHLOROthiazide 20-12.5 mg per tabletTake 2 tablets by mouth every morning.Disp: 180 tabletRfl: 1 amLODIPine (NORVASC) 10 mg tabletTake 1 tablet by mouth once daily.Disp: 90 tabletRfl: 3 fluticasone furoate (ARNUITY ELLIPTA) 100 mcg/actuation inhalerInhale 1 Puff as instructed once daily.Disp: 1 EachRfl: 5 benzonatate (TESSALON PERLES) 100 mg capsuleTake 2 capsules by mouth three times daily as needed.Disp: 30 capsuleRfl: 0 albuterol HFA (PROAIR HFA) 90 mcg/actuation inhalerInhale 2 Puffs as instructed every 6 hours as needed.Disp: 1 EachRfl: 0 metFORMIN (GLUCOPHAGE) 500 mg tabletTake 1 tablet by mouth daily with breakfast.Disp: 90 tabletRfl: 3 pravastatin (PRAVACHOL) 40 mg tabletTake 1 tablet by mouth daily at bedtime. For cholesterol.Disp: 90 tabletRfl: 3 Potassium 99 mg tabTake 2 tablets by mouth twice daily.Disp: Rfl: Atfco-4-JCI-EPA-Fish Oil 1,000 mg (120 mg-180 mg) capTake 1 g by mouth once daily.Disp: Rfl: sodium chloride (SALINE NASAL NASAL)Use 1 [place] Pk in the nose as needed.Disp: Rfl: calcium carbonate (CALCIUM 600 ORAL)Take 1 tablet by mouth twice daily.Disp: Rfl: Lactobac comb 1-JPE-opixabhekg (PROBIOTIC AND ACIDOPHILUS) 300-250 million cell-mg capTake 1 capsule by mouth once daily. Disp: Rfl: 0 docusate sodium (COLACE) 100 mg capsuleTake 1 capsule by mouth once daily.Disp: Rfl: MULTIVITAMIN TABTake 1 tablet by mouth once daily. Disp: Rfl: 0 Social History Tobacco Use Smoking status: Never Smokeless tobacco: Never Vaping Use Vaping Use: Never used Substance Use Topics Alcohol use: Not Currently Comment: 1.5 liters of wine per week. Stopped 2013. Drug use: No Family History Problem Relation Age of Onset Hypertension Mother Glaucoma Mother Cancer Father lymphoma, Hypertension Father Heart disease Maternal Grandfather Cancer Paternal Aunt Cancer Paternal Uncle Skin Cancer Paternal Uncle Asthma No Family History PAST SURGICAL HISTORY Procedure Laterality Date ADENOIDECTOMY PRIMARY Adenoidectomy ARTHROSCOPY KNEE DIAGNOSTIC W/WO SYNOVIAL BX SPX Arthroscopy, knee COLONOSCOPY FLX DX W/COLLJ SPEC WHEN PFRMD 10/02/2010 PAST SURGICAL HISTORY OF Right 12/13/2019 chest tube due to trauma rib fracture and clavicle fracture SEPTOPLASTY/SUBMUCOUS RESECJ W/WO CARTILAGE GRF Septoplasty THYROID BIOPSY 11/26/2020 TONSILLECTOMY PRIMARY/SECONDARY Tonsillectomy TYMPANOSTOMY GENERAL ANES BILA 05/07/2011 I reviewed the past medical history, family history, social history and surgical history with changes noted above and updated (more content not included)... [facility] 02-26-2023 Miscellaneous Notes Call to pt and notified him that Rx has been sent in. Pt verbalized understanding. Marlin Collins Ma Patient reports he took his last pill today and he is sitting at [facility] trying to figure out why it's not there. Please send ryder. Please phone patient to let him know when it was sent. Patient phones requesting refills as follows: Requested Prescriptions Pending Prescriptions Disp Refills doxazosin (CARDURA) 2 mg tablet 180 tablet 1 Sig: Take 2 tablets by mouth daily at bedtime. YAZAN 09/23/22 NOV 03/30/23 Please review and advise. Kirill Belcher LPN documented in this encounter [facility] 12-03-2022 Note HNO ID: [id number] Author: Sahara Andrade PA-C Service: ? Author Type: Physician Dumper Operator Type: Progress Notes Filed: 12/03/2022 11:02 AM Note Text: Patient: Reji Sarmiento PCP: Nando Plummer MD CC: asthma HPI: Reji Sarmiento 77 year old morbidly obese male non-smoker with PMH significant for DM2, HTN, YUDITH on CPAP, chronic rhinitis, and history of atopy. Patient initially evaluated by Dr. Hdez on 08/24/2022 secondary to recurrent bronchitis. His respiratory issues started in 2019 when he had broken ribs with pleural effusion and PTX requiring chest tube. Previously required immunotherapy for 17 years. Allergic to cats, dogs, grasses and mold. PFTs demonstrated small airway obstruction that improves with bronchodilator. Exhaled nitric oxide slightly elevated. Labs revealed mild elevation of IgE. Patient started on Arnuity with as needed Albuterol. Today, reports since staring Arnuity his cough has significantly improved. Occasionally wheezes. Exertional dyspnea with climbing stairs, walking long distances, carrying heavy objects. He attributes this to his weight. No nocturnal awakenings. States he uses Flonase every 3 nights. I don't think I need it more than that . Wears CPAP with all sleep. PAST MEDICAL HISTORY Diagnosis Date Allergies Previous IT Cholelithiasis 11/22/2019 Chronic rhinitis 12/22/2012 Chronic tympanostomies, Dr. Kramer, ENT Chronic serous otitis media of both ears 12/22/2012 Chronic tympanostomies, Dr. 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 Kee Aceves Lumbar disc herniation 01/05/2014 Mild persistent asthma without complication 08/24/2022 Motion sickness Multiple fractures of ribs, bilateral, initial encounter for closed fracture 11/23/2019 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 02/02/2020 Obesity, unspecified 07/27/2005 YUDITH on CPAP 07/25/[address] Zepeda Pleural effusion on right 12/13/2019 s/p trauma, chest tube drainage Allergies: Penicillins Anaphylaxis Sulfa (Sulfonamide * Anaphylaxis Tape [Adhesive Tape* Rash Comment:JUST SURGICAL FOAM TAPE meloxicam (MOBIC) 15 mg tablet Take 1 tablet by mouth once daily. With food. Benazepril-hydroCHLOROthiazide 20-12.5 mg per tablet Take 2 tablets by mouth every morning. amLODIPine (NORVASC) 10 mg tablet Take 1 tablet by mouth once daily. fluticasone furoate (ARNUITY ELLIPTA) 100 mcg/actuation inhaler Inhale 1 Puff as instructed once daily. doxazosin (CARDURA) 2 mg tablet Take 2 tablets by mouth daily at bedtime. benzonatate (TESSALON PERLES) 100 mg capsule Take 2 capsules by mouth three times daily as needed. albuterol HFA (PROAIR HFA) 90 mcg/actuation inhaler Inhale 2 Puffs as instructed every 6 hours as needed. metFORMIN (GLUCOPHAGE) 500 mg tablet Take 1 tablet by mouth daily with breakfast. pravastatin (PRAVACHOL) 40 mg tablet Take 1 tablet by mouth daily at bedtime. For cholesterol. Potassium 99 mg tab Take 2 tablets by mouth twice daily. Dbckn-5-VMM-EPA-Fish Oil 1,000 mg (120 mg-180 mg) cap Take 1 g by mouth once daily. sodium chloride (SALINE NASAL NASAL) Use 1 [place] Pk in the nose as needed. calcium carbonate (CALCIUM 600 ORAL) Take 1 tablet by mouth twice daily. Lactobac comb 3-SUN-qiygfpqehf (PROBIOTIC AND ACIDOPHILUS) 300-250 million cell-mg cap Take 1 capsule by mouth once daily. docusate sodium (COLACE) 100 mg capsule Take 1 capsule by mouth once daily. MULTIVITAMIN TAB Take 1 tablet by mouth once daily. Social History Tobacco Use Smoking status: Never Smokeless tobacco: Never Vaping Use Vaping Use: Never used Substance Use Topics Alcohol use: Not Currently Comment: 1.5 liters of wine per week. Stopped 2013. Drug use: No Family History Problem Relation Age of Onset Hypertension Mother Glaucoma Mother Cancer Father lymphoma, Hypertension Father Heart disease Maternal Grandfather Cancer Paternal Aunt Cancer Paternal Uncle Skin Cancer Paternal Uncle Asthma No Family History PAST SURGICAL HISTORY Procedure Laterality Date ADENOIDECTOMY PRIMARY Adenoidectomy ARTHROSCOPY KNEE DIAGNOSTIC W/WO SYNOVIAL BX SPX Arthroscopy, knee COLONOSCOPY FLX DX W/COLLJ SPEC WHEN PFRMD 10/02/2010 PAST SURGICAL HISTORY OF Right 12/13/2019 chest tube due to trauma rib fracture and clavicle fracture SEPTOPLASTY/SUBMUCOUS RESECJ W/WO CARTILAGE GRF Septoplasty THYROID BIOPSY US 11/26/2020 TONSILLECTOMY PRIMARY/SECONDARY Tonsi (more content not included)... [facility] 12-03-2022 History of Presen t illness Narrative Images from the original note were not included. Patient: Reji Sarmiento PCP: Nando Plummer MD CC: asthma HPI: Reji Sarmiento 77 year old morbidly obese male non-smoker with PMH significant for DM2, HTN, YUDITH on CPAP, chronic rhinitis, and history of atopy. Patient initially evaluated by Dr. Hdez on 08/24/2022 secondary to recurrent bronchitis. His respiratory issues started in 2019 when he had broken ribs with pleural effusion and PTX requiring chest tube. Previously required immunotherapy for 17 years. Allergic to cats, dogs, grasses and mold. PFTs demonstrated small airway obstruction that improves with bronchodilator. Exhaled nitric oxide slightly elevated. Labs revealed mild elevation of IgE. Patient started on Arnuity with as needed Albuterol. Today, reports since staring Arnuity his cough has significantly improved. Occasionally wheezes. Exertional dyspnea with climbing stairs, walking long distances, carrying heavy objects. He attributes this to his weight. No nocturnal awakenings. States he uses Flonase every 3 nights. I don't think I need it more than that . Wears CPAP with all sleep. PAST MEDICAL HISTORY Diagnosis Date Allergies Previous IT Cholelithiasis 11/22/2019 Chronic rhinitis 12/22/2012 Chronic tympanostomies, Dr. Kramer, ENT Chronic serous otitis media of both ears 12/22/2012 Chronic tympanostomies, Dr. 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 Kee Aceves Lumbar disc herniation 01/05/2014 Mild persistent asthma without complication 08/24/2022 Motion sickness Multiple fractures of ribs, bilateral, initial encounter for closed fracture 11/23/2019 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 02/02/2020 Obesity, unspecified 07/27/2005 YUDITH on CPAP 07/25/[address] Zepeda Pleural effusion on right 12/13/2019 s/p trauma, chest tube drainage Allergies: Penicillins Anaphylaxis Sulfa (Sulfonamide * Anaphylaxis Tape [Adhesive Tape* Rash Comment:JUST SURGICAL FOAM TAPE meloxicam (MOBIC) 15 mg tablet Take 1 tablet by mouth once daily. With food. Benazepril-hydroCHLOROthiazide 20-12.5 mg per tablet Take 2 tablets by mouth every morning. amLODIPine (NORVASC) 10 mg tablet Take 1 tablet by mouth once daily. fluticasone furoate (ARNUITY ELLIPTA) 100 mcg/actuation inhaler Inhale 1 Puff as instructed once daily. doxazosin (CARDURA) 2 mg tablet Take 2 tablets by mouth daily at bedtime. benzonatate (TESSALON PERLES) 100 mg capsule Take 2 capsules by mouth three times daily as needed. albuterol HFA (PROAIR HFA) 90 mcg/actuation inhaler Inhale 2 Puffs as instructed every 6 hours as needed. metFORMIN (GLUCOPHAGE) 500 mg tablet Take 1 tablet by mouth daily with breakfast. pravastatin (PRAVACHOL) 40 mg tablet Take 1 tablet by mouth daily at bedtime. For cholesterol. Potassium 99 mg tab Take 2 tablets by mouth twice daily. Fvncc-8-QJP-EPA-Fish Oil 1,000 mg (120 mg-180 mg) cap Take 1 g by mouth once daily. sodium chloride (SALINE NASAL NASAL) Use 1 [place] Pk in the nose as needed. calcium carbonate (CALCIUM 600 ORAL) Take 1 tablet by mouth twice daily. Lactobac comb 4-WOD-kirdvthqoo (PROBIOTIC AND ACIDOPHILUS) 300-250 million cell-mg cap Take 1 capsule by mouth once daily. docusate sodium (COLACE) 100 mg capsule Take 1 capsule by mouth once daily. MULTIVITAMIN TAB Take 1 tablet by mouth once daily. Social History Tobacco Use Smoking status: Never Smokeless tobacco: Never Vaping Use Vaping Use: Never used Substance Use Topics Alcohol use: Not Currently Comment: 1.5 liters of wine per week. Stopped 2013. Drug use: No Family History Problem Relation Age of Onset Hypertension Mother Glaucoma Mother Cancer Father lymphoma, Hypertension Father Heart disease Maternal Grandfather Cancer Paternal Aunt Cancer Paternal Uncle Skin Cancer Paternal Uncle Asthma No Family History PAST SURGICAL HISTORY Procedure Laterality Date ADENOIDECTOMY PRIMARY <AGE 13 Adenoidectomy ARTHROSCOPY KNEE DIAGNOSTIC W/WO SYNOVIAL BX SPX Arthroscopy, knee COLONOSCOPY FLX DX W/COLLJ SPEC WHEN PFRMD 10/02/2010 PAST SURGICAL HISTORY OF Right 12/13/2019 chest tube due to trauma rib fracture and clavicle fracture SEPTOPLASTY/SUBMUCOUS RESECJ W/WO CARTILAGE GRF Septoplasty THYROID BIOPSY US 11/26/2020 TONSILLECTOMY PRIMARY/SECONDARY <AGE 13 Tonsillectomy TYMPANOSTOMY GENERAL ANES BILA 05/07/2011 I reviewed the past medical history, family history, social history and surgical history with changes noted above and updated in EMR. IMMUNIZATIONS Prevnar - 01/10/2015 Pneumovax - 01/05/2014 Influenza - 03/13/2022 COVID-19 - 09/04/2021, 04/10/2021, 09/02/2020, 08/05/2020 ROS: General: No fevers, chills or night sweats. No unintended weight loss. Eyes, Ears, nose, throat: No post nasal drip, rhinorrhea. No purulent nasal discharge, epistaxis. No hoarseness. Vision stable. Cardiac: No angina, edema, orthopnea. Resp: See HPI. GI: No heartburn, dysphagia. Musculoskeletal: No pain. Neuro: No headache, focal weakness, tremor. Skin: No rash. Otherwise negative. PHYSICAL EXAMINATION: BP (P) 138/82 Pulse (P) 67 Resp (P) 20 Wt (P) 130.6 kg (288 lb) SpO2 (P) 97% BMI (P) 44.31 kg/m Gen: No acute distress. Cooperative with examination. HEENT: Normocephalic. Sclera, conjunctiva clear. Oral hygeine and dentition good. No thrush. Resp: No stridor, accessory respiratory muscle use, supra-sternal or intercostal retractions. No wheezes, crackles. CV: Regular rythm. Systolic murmur noted. Radial pulses normal. Abd: Non distended. MSK: No kyphoscoliosis. Ext: Warm and well perfused. No clubbing, cyanosis, edema. Skin: No rash, ecchymoses. Neuro: Mental status normal. Affect normal. No tremor. DATA: PFT, 08/24/2022 IMPRESSION: Spirometry shows a reduced FEV1/FVC ratio; but individually normal FVC and FEV1 predicted values.This pattern indicates mild obstruction or a normal variant. The increase in FEF 25-75 post-bronchodilator reflects an improvement in the small airway obstruction. Electronically Signed On 08-24-2022 16:57:42 EDT by Kimberly Hdez M.D. Exhaled nitric oxide (Min), 08/24/2022: 22 (normal < 20). CXR, 07/22/2022 IMPRESSION: No acute radiographic abnormality. COMPARISON: 08/29/2020 RESULT: Lines, tubes, and devices: None. Lungs and pleura: No consolidation. No lung mass. No pleural effusion. No pneumothorax. Cardiomediastinal silhouette: Normal cardiomediastinal silhouette. Bones and soft tissues: Remote, healed right rib fractures. ASSESSMENT/PLAN: 1. Mild persistent asthma without complication - ICD9: 493.90, ICD10: J45.30 (primary diagnosis) Symptomatically doing well with Arnuity and as needed Albuterol. Slightly elevated IgE. Discussed adding Singulair, but patient declines at this time. Continue Flonase nasal spray. Recommend nightly use. 2. Dyspnea and respiratory abnormalities - ICD9: 786.09, ICD10: R06.00, R06.89 Exertional dyspnea that is most likely multi-factorial, including obesity and asthma. However, I appreciated a systolic murmur today. I reviewed previous office notes from other providers and no murmur is noted. Will obtain echocardiogram. - ECHO - PERFLUTREN LIPID MICROSPHERES 1.1 MG/ML INJECTION IN NS 10 ML - SODIUM CHLORIDE 0.9 % (FLUSH) INJECTION SYRINGE 3. Allergic rhinitis, unspecified seasonality, unspecified trigger - ICD9: 477.9, ICD10: J30.9 See #1. 4. Morbid obesity with BMI of 40.0-44.9, adult (HCC) - ICD9: 278.01, V85.41, ICD10: E66.01, Z68.41 Weight loss advised. Portions of this documentation were copied and pasted from previous office visit notes in order to provide a cohesive continuity of the history. The note has been reviewed and edited and updated as necessary. Sahara Andrade PA-C documented in this encounter [facility] 11-16-2022 Miscellaneous Notes Patient has been identified by name and date of : Yes, Provider Kavitha Date 11/16/22 Time 10:53am Patient phones for refill(s): Requested Prescriptions Pending Prescriptions Disp Refills meloxicam (MOBIC) 15 mg tablet 90 tablet 3 Sig: Take 1 tablet by mouth once daily. With food. Date of last office visit in primary care: 09/23/22 Last 2 Encounter Wt Readings: Date: Wt: 09/23/2022 129.3 kg (285 lb) 08/24/2022 128.8 kg (284 lb) Please advise. Thank you. Conchita Ulloa LPN documented in this encounter [facility] 09-23-2022 Note HNO ID: [id number] Author: Nando Plummer MD Service: ? Author Type: Physician Type: Progress Notes Filed: 09/23/2022 10:22 AM Note Text: This note was created using MYTRNDriter. Subjective Patient presents with: F/U 6 months Reji Sarmiento is a 76 year old male. Concerns were multiple. Breathing was improving with treatment of asthma, but stamina was down overall. Stamina was down 20% subjectively from 6 months ago. Inhaled steroids were raised as a concern for his glaucoma by his eye doctor. He was getting more muscle cramps and was taking 4 over the counter potassium pills daily (99mg ~2meg each). Hypertension was close to goal. DM and lipids were controlled. Sleep was interrupted 4 times. It was not clear if sleep was primarily interrupted or if nocturia was the cause of insomnia. He just woke up and felt it best to empty his bladder. Review of Systems Constitutional: Positive for fatigue. Negative for unexpected weight change. HENT: Negative. Respiratory: Positive for shortness of breath. Negative for chest tightness. Cardiovascular: Negative for chest pain, palpitations and leg swelling. Gastrointestinal: Negative. Genitourinary: Negative for difficulty urinating, dysuria and frequency. See HPI. 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 Stopped 2013. Drug use: No Current Outpatient Medications Medication Sig amLODIPine (NORVASC) 10 mg tablet Take 1 tablet by mouth once daily. fluticasone furoate (ARNUITY ELLIPTA) 100 mcg/actuation inhaler Inhale 1 Puff as instructed once daily. doxazosin (CARDURA) 2 mg tablet Take 2 tablets by mouth daily at bedtime. benzonatate (TESSALON PERLES) 100 mg capsule Take 2 capsules by mouth three times daily as needed. albuterol HFA (PROAIR HFA) 90 mcg/actuation inhaler Inhale 2 Puffs as instructed every 6 hours as needed. Benazepril-hydroCHLOROthiazide 20-12.5 mg per tablet Take 1 tablet by mouth twice daily. metFORMIN (GLUCOPHAGE) 500 mg tablet Take 1 tablet by mouth daily with breakfast. pravastatin (PRAVACHOL) 40 mg tablet Take 1 tablet by mouth daily at bedtime. For cholesterol. meloxicam (MOBIC) 15 mg tablet Take 1 tablet by mouth once daily. With food. Potassium 99 mg tab Take 2 tablets by mouth twice daily. Onvfz-6-SCE-EPA-Fish Oil 1,000 mg (120 mg-180 mg) cap Take 1 g by mouth once daily. sodium chloride (SALINE NASAL NASAL) Use 1 [place] Pk in the nose as needed. calcium carbonate (CALCIUM 600 ORAL) Take 1 tablet by mouth twice daily. Lactobac comb 3-VGQ-oafvqcejho (PROBIOTIC AND ACIDOPHILUS) 300-250 million cell-mg cap Take 1 capsule by mouth once daily. docusate sodium (COLACE) 100 mg capsule Take 1 capsule by mouth once daily. MULTIVITAMIN TAB Take 1 tablet by mouth once daily. No current facility-administered medications for this visit. Objective BP 132/77 (BP Site: Left Arm, BP Position: Sitting, BP Cuff Size: Large Adult) Pulse 60 Resp 18 Wt 129.3 kg (285 lb) BMI 43.85 kg/m? Physical Exam Constitutional: General: He is not in acute distress. Appearance: He is not ill-appearing or diaphoretic. Cardiovascular: Rate and Rhythm: Normal rate and regular rhythm. Heart sounds: No murmur heard. No gallop. Pulmonary: Effort: Pulmonary effort is normal. Breath sounds: Normal breath sounds. Musculoskeletal: Right lower leg: No edema. Left lower leg: No edema. Neurological: General: No focal deficit present. Mental Status: He is alert. Feet:Shoes and socks removed, Are you having foot pain no, normal distal pulses, and sensitive to 10 gm monofilament. Depression Screening 03/11/2022 03/11/2022 09/21/2022 09/23/2022 PHQ-2 Score 0 0 0 0 PHQ-9 Score - - 6 - Depression screening tool completed and reviewed. Based on score and interview, patient is not at risk for depression. Screening tool discussed with patient, and I recommended no further intervention at this time. Component Latest Ref Rng AND Units 09/21/2022 Protein, Total 6.3 - 8.0 g/dL 6.7 Albumin 3.9 - 4.9 g/dL 4.3 Calcium 8.5 - 10.2 mg/dL 9.1 Bilirubin, Total 0.2 - 1.3 mg/dL 0.5 Alkaline Phosphatase 38 - 113 U/L 61 AST 14 - 40 U/L 25 ALT 10 - 54 U/L 38 Glucose 74 - 99 mg/dL 129 (H) BUN 9 - 24 mg/dL 18 Creatinine 0.73 - 1.22 mg/dL 0.86 Sodium 136 - 144 mmol/L 141 Potassium 3.7 - 5.1 mmol/L 3.6 (L) Chl (more content not included)... [facility] 09-14-2022 Miscellaneous Notes YAZAN: 03/11/2022 Last refill: 08/06/2021 QTY: 90 Refills: 3 Patient's request for medication is as follows: Requested Prescriptions Pending Prescriptions Disp Refills amLODIPine (NORVASC) 10 mg tablet 90 tablet 3 Sig: Take 1 tablet by mouth once daily. Please approve the above prescription(s) to electronically send to pharmacy. Rory Mcgovern Ma documented in this encounter [facility] 08-25-2022 Miscellaneous Notes Spoke with patient. Advised to check with insurance to see which ICC is cheapest on his formulary. List of other ICC medications given. He will check with insurance and notify office. Aniya Brody LPN Pt. calling in stating the Asmanex that he was prescribed yesterday will be too expensive for him to afford. Is there another alternative to this? Please advise and call pt. Thank you! Siomara Escalante RN documented in this encounter [facility] 08-24-2022 Note HNO ID: [id number] Author: ILENE Toledo Service: ? Author Type: Respiratory Therapist Type: Procedures Filed: 08/24/2022 11:34 AM Note Text: RESPIRATORY THERAPY ORAL EXHALED NITRIC OXIDE SERVICE DATE: 08/24/2022 SERVICE TIME: 11:33 AM Oral Exhaled Nitric Oxide measurement: 22.0 (ppb) Normal: Adult 5-20 ppb, pediatric (<12 years) 5-15 ppb High Normal / Increased: Adult 20-35 ppb, pediatric (<12 years) 15-25 ppb Moderately raised exhaled Nitric Oxide may indicate underlying inflammation, but note that: Cold and influenza can raise exhaled Nitric Oxide and some patients have higher baseline exhaled Nitric Oxide levels than others. High: Adult >35 ppb, pediatric (<12 years) >25 ppb Indicative of ongoing eosinophilic inflammation. Symptomatic patient likely to respond to steroids. Possible causes (if already on steroids): Poor compliance, recent allergen exposure, steroid dose inadequate, and steroid resistance. Note that not all patients with high exhaled nitric oxide levels display symptoms. Oral Exhaled Nitric Oxide measurement (Previous Encounters) Test Date Oral Exhaled Nitric Oxide (ppb) 08/24/2022 22.0 NAME: ILENE Toledo PATIENT NAME: Reji Sarmiento DATE: August 24, 2022 TIME: 11:33 AM [facility] 08-24-2022 Note HNO ID: [id number] Author: ILENE Toledo Service: ? Author Type: Respiratory Therapist Type: Progress Notes Filed: 08/24/2022 11:34 AM Note Text: PULM FUNCTION SMARTBLOCK: Provider: Kimberly Hdez MD Assisting Tech: ILENE Toledo Spirometry w/BD: 1 Exhaled Nitric Oxide: 1 [facility] 08-24-2022 Note HNO ID: [id number] Author: Kimberly Hdez MD Service: ? Author Type: Physician Type: Progress Notes Filed: 08/24/2022 12:30 PM Note Text: . Respiratory [place] Note Patient name: Reji Sarmiento PCP: Nando Plummer MD Referring Physician: Kay Hilliard PA-C Consultation requested by Dr. Plummer for an opinion regarding bronchitis. My final recommendations will be communicated back to the requesting physician by way of shared Medical record or letter to requesting physician via US mail. CC: Recurrent Bronchitis HPI: Reji Sarmiento 76 year old morbidly obese male non-smoker with PMH significant for DM2, HTN, YUDITH on CPAP, chronic rhinitis, history of atopy being referred for evaluation of recurrent bronchitis. He dates his respiratory issues back to 2019 when he had broken ribs with pleural effusion and PTX requiring chest tube. Since then he seems to be more susceptible to URI. He has at least two episodes per year. Over the last year was has had multiple URI, with lingering symptoms, taking 4-6 weeks to recover. Symptoms consist of SOB with activity, severe coughing with coughing jags. No excessive mucus production. Has noted wheezing with quiet respiration. No history of asthma but does have a history of allergies requiring immunotherapy for 17 years. Allergic to cats, dogs, grasses and molds. Has chronic rhinitis, recently started on Flonase nasal spray which has helped his nasal symptoms tremendously. DATA: Min 22 ppb PFT: Review pulmonary function test shows small airway obstruction that improves with bronchodilator Labs: Last CBC normal Imaging / Diagnostic Studies: DATE OF EXAM: Jul 22 2022 7:18PM WOX [id number] - XR CHEST 2V FRONTAL/LAT / PROCEDURE REASON: Acute cough CLINICAL HISTORY: Acute cough MQ: XC2_6 EXAM DATE/TIME: 07/22/2022 7:18 PM COMPARISON: 08/29/2020 RESULT: Lines, tubes, and devices: None. Lungs and pleura: No consolidation. No lung mass. No pleural effusion. No pneumothorax. Cardiomediastinal silhouette: Normal cardiomediastinal silhouette. Bones and soft tissues: Remote, healed right rib fractures. I personally reviewed the images which shows a normal chest pelvis then old rib fractures PAST MEDICAL HISTORY Diagnosis Date Allergies Previous IT Cholelithiasis 11/22/2019 Chronic rhinitis 12/22/2012 Chronic tympanostomies, Dr. Kramer, ENT Chronic serous otitis media of both ears 12/22/2012 Chronic tympanostomies, Dr. 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 Kee Aceves Lumbar disc herniation 01/05/2014 Mild persistent asthma without complication 08/24/2022 Motion sickness Multiple fractures of ribs, bilateral, initial encounter for closed fracture 11/23/2019 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 02/02/2020 Obesity, unspecified 07/27/2005 YUDITH on CPAP 07/25/[address] Zepeda Pleural effusion on right 12/13/2019 s/p trauma, chest tube drainage ALLERGIES Allergen Reactions Penicillins Anaphylaxis Sulfa (Sulfonamide * Anaphylaxis Tape [Adhesive Tape* Rash JUST SURGICAL FOAM TAPE doxazosin (CARDURA) 2 mg tablet Take 2 tablets by mouth daily at bedtime. benzonatate (TESSALON PERLES) 100 mg capsule Take 2 capsules by mouth three times daily as needed. albuterol HFA (PROAIR HFA) 90 mcg/actuation inhaler Inhale 2 Puffs as instructed every 6 hours as needed. Benazepril-hydroCHLOROthiazide 20-12.5 mg per tablet Take 1 tablet by mouth twice daily. metFORMIN (GLUCOPHAGE) 500 mg tablet Take 1 tablet by mouth daily with breakfast. pravastatin (PRAVACHOL) 40 mg tablet Take 1 tablet by mouth daily at bedtime. For cholesterol. meloxicam (MOBIC) 15 mg tablet Take 1 tablet by mouth once daily. With food. amLODIPine (NORVASC) 10 mg tablet Take 1 tablet by mouth once daily. Potassium 99 mg tab Take 2 tablets by mouth twice daily. Vojzv-3-XYX-EPA-Fish Oil 1,000 mg (120 mg-180 mg) cap Take 1 g by mouth once daily. sodium chloride (SALINE NASAL NASAL) Use 1 [place] Pk in the nose as needed. calcium carbonate (CALCIUM 600 ORAL) Take 1 tablet by mouth twice daily. Lactobac comb 3-MQD-ljtjdmgzdm (PROBIOTIC AND ACIDOPHILUS) 300-250 million cell-mg cap Take 1 capsule by mouth once daily. docusate sodium (COLACE) 100 mg capsule Take 1 capsule by mouth once daily. MULTIVITAMIN TAB Take 1 tablet by mouth once daily. mometasone (ASMANEX HFA) 100 mcg/actuation Inhale 2 Puffs as instructed twice daily. Social Histo (more content not included)... [facility] 08-24-2022 History of Presen t illness Narrative Images from the original note were not included. . Respiratory [place] Note Patient name: Reji Sarmiento PCP: Nando Plummer MD Referring Physician: Kay Hilliard PA-C Consultation requested by Dr. Plummer for an opinion regarding bronchitis. My final recommendations will be communicated back to the requesting physician by way of shared Medical record or letter to requesting physician via [place] mail. CC: Recurrent Bronchitis HPI: Reji Sarmiento 76 year old morbidly obese male non-smoker with PMH significant for DM2, HTN, YUDITH on CPAP, chronic rhinitis, history of atopy being referred for evaluation of recurrent bronchitis. He dates his respiratory issues back to 2019 when he had broken ribs with pleural effusion and PTX requiring chest tube. Since then he seems to be more susceptible to URI. He has at least two episodes per year. Over the last year was has had multiple URI, with lingering symptoms, taking 4-6 weeks to recover. Symptoms consist of SOB with activity, severe coughing with coughing jags. No excessive mucus production. Has noted wheezing with quiet respiration. No history of asthma but does have a history of allergies requiring immunotherapy for 17 years. Allergic to cats, dogs, grasses and molds. Has chronic rhinitis, recently started on Flonase nasal spray which has helped his nasal symptoms tremendously. DATA: Min 22 ppb PFT: Review pulmonary function test shows small airway obstruction that improves with bronchodilator Labs: Last CBC normal Imaging / Diagnostic Studies: DATE OF EXAM: Jul 22 2022 7:18PM WOX [id number] - XR CHEST 2V FRONTAL/LAT / PROCEDURE REASON: Acute cough CLINICAL HISTORY: Acute cough MQ: XC2_6 EXAM DATE/TIME: 07/22/2022 7:18 PM COMPARISON: 08/29/2020 RESULT: Lines, tubes, and devices: None. Lungs and pleura: No consolidation. No lung mass. No pleural effusion. No pneumothorax. Cardiomediastinal silhouette: Normal cardiomediastinal silhouette. Bones and soft tissues: Remote, healed right rib fractures. I personally reviewed the images which shows a normal chest pelvis then old rib fractures PAST MEDICAL HISTORY Diagnosis Date Allergies Previous IT Cholelithiasis 11/22/2019 Chronic rhinitis 12/22/2012 Chronic tympanostomies, Dr. Kramer, ENT Chronic serous otitis media of both ears 12/22/2012 Chronic tympanostomies, Dr. 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 Kee Aceves Lumbar disc herniation 01/05/2014 Mild persistent asthma without complication 08/24/2022 Motion sickness Multiple fractures of ribs, bilateral, initial encounter for closed fracture 11/23/2019 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 02/02/2020 Obesity, unspecified 07/27/2005 YUDITH on CPAP 07/25/[address] Zepeda Pleural effusion on right 12/13/2019 s/p trauma, chest tube drainage ALLERGIES Allergen Reactions Penicillins Anaphylaxis Sulfa (Sulfonamide * Anaphylaxis Tape [Adhesive Tape* Rash JUST SURGICAL FOAM TAPE doxazosin (CARDURA) 2 mg tablet Take 2 tablets by mouth daily at bedtime. benzonatate (TESSALON PERLES) 100 mg capsule Take 2 capsules by mouth three times daily as needed. albuterol HFA (PROAIR HFA) 90 mcg/actuation inhaler Inhale 2 Puffs as instructed every 6 hours as needed. Benazepril-hydroCHLOROthiazide 20-12.5 mg per tablet Take 1 tablet by mouth twice daily. metFORMIN (GLUCOPHAGE) 500 mg tablet Take 1 tablet by mouth daily with breakfast. pravastatin (PRAVACHOL) 40 mg tablet Take 1 tablet by mouth daily at bedtime. For cholesterol. meloxicam (MOBIC) 15 mg tablet Take 1 tablet by mouth once daily. With food. amLODIPine (NORVASC) 10 mg tablet Take 1 tablet by mouth once daily. Potassium 99 mg tab Take 2 tablets by mouth twice daily. Kanrq-8-ZAT-EPA-Fish Oil 1,000 mg (120 mg-180 mg) cap Take 1 g by mouth once daily. sodium chloride (SALINE NASAL NASAL) Use 1 [place] Pk in the nose as needed. calcium carbonate (CALCIUM 600 ORAL) Take 1 tablet by mouth twice daily. Lactobac comb 4-SGC-jynphfetsm (PROBIOTIC AND ACIDOPHILUS) 300-250 million cell-mg cap Take 1 capsule by mouth once daily. docusate sodium (COLACE) 100 mg capsule Take 1 capsule by mouth once daily. MULTIVITAMIN TAB Take 1 tablet by mouth once daily. mometasone (ASMANEX HFA) 100 mcg/actuation Inhale 2 Puffs as instructed twice daily. Social History Tobacco Use Smoking status: Never Smokeless tobacco: Never Vaping Use Vaping Use: Never used Substance Use Topics Alcohol use: Not Currently Comment: 1.5 liters of wine per week. Stopped 2013. Drug use: No No occupational exposure history. Pets: None FAMILY HISTORY Problem Relation Age of Onset Hypertension Mother Glaucoma Mother Cancer Father lymphoma, Hypertension Father Heart disease Maternal Grandfather Cancer Paternal Aunt Cancer Paternal Uncle Skin Cancer Paternal Uncle Asthma No Family History PAST SURGICAL HISTORY Procedure Laterality Date ADENOIDECTOMY PRIMARY <AGE 13 Adenoidectomy ARTHROSCOPY KNEE DIAGNOSTIC W/WO SYNOVIAL BX SPX Arthroscopy, knee COLONOSCOPY FLX DX W/COLLJ SPEC WHEN PFRMD 10/02/2010 PAST SURGICAL HISTORY OF Right 12/13/2019 chest tube due to trauma rib fracture and clavicle fracture SEPTOPLASTY/SUBMUCOUS RESECJ W/WO CARTILAGE GRF Septoplasty THYROID BIOPSY 11/26/2020 TONSILLECTOMY PRIMARY/SECONDARY <AGE 13 Tonsillectomy TYMPANOSTOMY GENERAL ANES BILA 05/07/2011 PMH, Social history, family history and surgical history reviewed and updated in EMR REVIEW OF SYSTEMS: CONSTITUTIONAL: No fevers, chills, nightsweats, unintended weight loss HEENT: Denies headaches. Persistent nasal congestion/sinus symptoms, allergy problems. EYES: No diplopia or blurry vision, itchy eyes CARDIOVASCULAR: No chest pain, palpitations, orthopnea, PND. DUMONT and mild ankle edema PULM: See HPI GI: No dysphagia/odynophagia, problematic reflux, changes in stool habits : No new urinary complaints, including dysuria, gross hematuria NEURO: No balance problems, peripheral weakness/paresthesias or numbness of concern. MUSC-SKEL: No joint pain, swelling, or erythema. PSY: No concerns regarding depression, anxiety INTEGUMENTARY: No new skin changes, sensitivity, rashes or eczema PHYSICAL EXAMINATION: BP 152/76[Dr. Hdez notified of blood pressure.[ Pulse 84 Resp 20 Ht 5' 7.6 (1.72m) Wt 284 lb (128.8kg) SpO2 94% BMI 43.70 kg/(m^2). General Appearance: Morbidly obese male, NAD Skin: Skin color, texture, turgor normal, no suspicious rashes or lesions. Head: Normocephalic, no masses, lesions, tenderness or abnormalities. Eyes: Sclera, conjunctiva normal Oropharynx: Adequate dentition, no oral lesions, no thrush, no erythema, no posterior pharyngeal cobblestoning Neck: No JVD, no masses, no thyromegaly Lungs: Not labored, normal to percussion, no wheezes or crackles Heart: Rate and rhythm, no murmurs gallops Extremities: Mild ankle edema, no clubbing Musculoskeletal: No joint deformities or effusions Neurologic: Oriented, no focal findings Lymph Nodes: No cervical lymphadenopathy and No supraclavicular lymphadenopathy. Assessment/Plan: 1. Mild persistent asthma, uncomplicated -Clinical history and pulmonary function testing most consistent with asthma -Started ICS with albuterol as needed. Instructed patient to rinse mouth after use of ICS -Instructed on use and potential complications 2. Allergic rhinitis -Continue Flonase 3. History of multiple allergies -Eosinophil count and IgE level -May need Singulair or revisit immunotherapy for allergies 4. Morbid obesity -Class III obesity, BMI 43 -Weight loss advised as obesity portends poor control of asthma Kimberly Hdez MD Res[facility] [place] documented in this encounter [facility] 08-18-2022 Miscellaneous Notes Last office visit: 03/11/22 Next appointment scheduled: 09/23/22 Patient has been identified by name and date of : Yes Requested Prescriptions Pending Prescriptions Disp Refills doxazosin (CARDURA) 2 mg tablet 180 tablet 1 Sig: Take 2 tablets by mouth daily at bedtime. RX INSTRUCTIONS: Patient aware RX will be sent to pharmacy. No need to notify patient. Bev Blanco Pss documented in this encounter [facility] 07-22-2022 Note HNO ID: [id number] Author: Kay Hilliard PA-C Service: ? Author Type: Physician Dumper Operator Type: Progress Notes Filed: 07/22/2022 7:42 PM Note Text: This note was created using MYTRNDriter. Subjective Reji Sarmiento is a 76 year old male. HPI Patient presents with a chief complaint of cough and chest congestion over the past week. He states he has had issues with wheezing off and on over the past couple of years but has not followed up with pulmonology for this. Denies diagnosis of asthma or COPD. He is not a smoker. Denies a fever. No diarrhea or vomiting. States sometimes it hurts in his chest when he coughs. He has a history of a pneumothorax secondary to rib fractures a few years ago. He has felt short of breath off and on. No leg pain or swelling. No history of CHF. Review of Systems Constitutional: Negative for fever. HENT: Positive for congestion. Negative for sore throat. Respiratory: Positive for cough and shortness of breath. Cardiovascular: Chest pain with cough Genitourinary: Negative. Musculoskeletal: Negative. All other systems reviewed and are negative. PAST MEDICAL HISTORY Diagnosis Date Cholelithiasis 11/22/2019 Chronic rhinitis 12/22/2012 Chronic tympanostomies, Dr. Kramer, ENT Chronic serous otitis media of both ears 12/22/2012 Chronic tympanostomies, Dr. 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 Kee Aceves Lumbar disc herniation 01/05/2014 Motion sickness Multiple fractures of ribs, bilateral, initial encounter for closed fracture 11/23/2019 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 02/02/2020 Obesity, unspecified 07/27/2005 YUDITH on CPAP 07/25/[address] Zepeda Pleural effusion on right 12/13/2019 s/p trauma, chest tube drainage Type II or unspecified type diabetes mellitus without mention of complication, not stated as uncontrolled 10/17/2008 Current Outpatient Medications Medication Sig Dispense Refill predniSONE (DELTASONE) 20 mg tablet Take 2 tablets by mouth once daily for 5 days. 10 tablet 0 benzonatate (TESSALON PERLES) 100 mg capsule Take 2 capsules by mouth three times daily as needed. 30 capsule 0 albuterol HFA (PROAIR HFA) 90 mcg/actuation inhaler Inhale 2 Puffs as instructed every 6 hours as needed. 1 Each 0 Benazepril-hydroCHLOROthiazide 20-12.5 mg per tablet Take 1 tablet by mouth twice daily. 180 tablet 1 metFORMIN (GLUCOPHAGE) 500 mg tablet Take 1 tablet by mouth daily with breakfast. 90 tablet 3 pravastatin (PRAVACHOL) 40 mg tablet Take 1 tablet by mouth daily at bedtime. For cholesterol. 90 tablet 3 doxazosin (CARDURA) 2 mg tablet Take 2 tablets by mouth daily at bedtime. 180 tablet 1 meloxicam (MOBIC) 15 mg tablet Take 1 tablet by mouth once daily. With food. 90 tablet 3 amLODIPine (NORVASC) 10 mg tablet Take 1 tablet by mouth once daily. 90 tablet 3 Potassium 99 mg tab Take 2 tablets by mouth twice daily. Nhbie-4-HQD-EPA-Fish Oil 1,000 mg (120 mg-180 mg) cap Take 1 g by mouth once daily. sodium chloride (SALINE NASAL NASAL) Use 1 [place] in the nose as needed. calcium carbonate (CALCIUM 600 ORAL) Take 1 tablet by mouth twice daily. Lactobac comb 9-[id number] (PROBIOTIC AND ACIDOPHILUS) 300-250 million cell-mg cap Take 1 capsule by mouth once daily. 0 docusate sodium (COLACE) 100 mg capsule Take 1 capsule by mouth once daily. MULTIVITAMIN TAB Take 1 tablet by mouth once daily. 0 No current facility-administered medications for this visit. PAST SURGICAL HISTORY Procedure Laterality Date ADENOIDECTOMY PRIMARY Adenoidectomy ARTHROSCOPY KNEE DIAGNOSTIC W/WO SYNOVIAL BX SPX Arthroscopy, knee COLONOSCOPY FLX DX W/COLLJ SPEC WHEN PFRMD 10/02/2010 PAST SURGICAL HISTORY OF Right 12/13/2019 chest tube due to trauma rib fracture and clavicle fracture SEPTOPLASTY/SUBMUCOUS RESECJ W/WO CARTILAGE GRF Septoplasty THYROID BIOPSY US 11/26/2020 TONSILLECTOMY PRIMARY/SECONDARY Tonsillectomy TYMPANOSTOMY GENERAL ANES BILA 05/07/2011 FAMILY HISTORY Problem Relation Age of Onset Hypertension Mother Glaucoma Mother Cancer Father lymphoma, Hypertension Father Cancer Paternal Aunt Cancer Paternal Uncle Skin Cancer Paternal Uncle Heart disease Maternal Grandfather Social History Tobacco Use Smoking status: Never Smokeless tobacco: Never Vaping Use Vaping Use: Never used Substance Use Topics Alcohol use: Not Currently Comment: 1.5 liters of wine per week. Stopped 2013. Drug use: No Objective (more content not included)... [facility] 07-22-2022 Note HNO ID: [id number] Author: RT Jonas(R) Service: ? Author Type: Rental Car Porter Type: Progress Notes Filed: 07/22/2022 7:20 PM Note Text: Radiology Service Progress Note PATIENT NAME: Reji Sarmiento DATE OF SERVICE: July 22, 2022 TIME: 7:10 PM PATIENT IDENTITY VERIFICATION COMPLETED USING TWO (2) IDENTIFIERS: Name and Date of confirmed by patient verbally. FALL SCREENING: Has the patient had 2 falls in the last year or 1 fall with injury or currently using an Ambulatory Assistive Device (Walker, Cane, Wheelchair, Crutches, etc.)? No PATIENT GENDER DATA: Male PATIENT RELEVANT IMPLANT DATA REVIEWED: Yes RADIOLOGY DEPARTMENT: General X-ray: Exam(s) Completed: Chest X-Ray PERIPHERAL IV DATA: Not applicable SIGNED BY: RT Jonas(R) July 22, 2022 7:10 PM [facility] 04-20-2022 Miscellaneous Notes Patient has been identified by name and date of : Yes Patient phones for refill(s): Requested Prescriptions Pending Prescriptions Disp Refills Benazepril-hydroCHLOROthiazide 20-12.5 mg per tablet 180 tablet 1 Sig: Take 1 tablet by mouth twice daily. Date of last office visit in primary care: 03/11/2022 6 month follow-up: 09/23/2022 Last 2 Encounter Wt Readings: Date: Wt: 03/11/2022 128.3 kg (282 lb 12.8 oz) 02/24/2022 127.9 kg (282 lb) Previous labs/tests for medication: Blood Pressure: BUN (mg/dL) Date Value 03/10/2022 22 02/28/2021 20 Sodium (mmol/L) Date Value 03/10/2022 139 02/28/2021 138 Last 1 Encounter BP Readings: Date: BP: 03/11/2022 136/78 Please advise. Thank you. Cristel Good LPN documented in this encounter [facility] 03-11-2022 History of Presen t illness Narrative Medicare Yearly Visit Medical B eligibilty date 2101 Date of last exam 03/03/2021 PAST MEDICAL HISTORY Diagnosis Date Cholelithiasis 11/22/2019 Chronic rhinitis 12/22/2012 Chronic tympanostomies, Dr. Kramer, ENT Chronic serous otitis media of both ears 12/22/2012 Chronic tympanostomies, Dr. 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 Kee Aceves Lumbar disc herniation 01/05/2014 Motion sickness Multiple fractures of ribs, bilateral, initial encounter for closed fracture 11/23/2019 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 02/02/2020 Obesity, unspecified 07/27/2005 YUDITH on CPAP 07/25/[address] Zepeda Pleural effusion on right 12/13/2019 s/p trauma, chest tube drainage Type II or unspecified type diabetes mellitus without mention of complication, not stated as uncontrolled 10/17/2008 PAST SURGICAL HISTORY Procedure Laterality Date ADENOIDECTOMY PRIMARY <AGE 13 Adenoidectomy ARTHROSCOPY KNEE DIAGNOSTIC W/WO SYNOVIAL BX SPX Arthroscopy, knee COLONOSCOPY FLX DX W/COLLJ SPEC WHEN PFRMD 10/02/2010 PAST SURGICAL HISTORY OF Right 12/13/2019 chest tube due to trauma rib fracture and clavicle fracture SEPTOPLASTY/SUBMUCOUS RESECJ W/WO CARTILAGE GRF Septoplasty THYROID BIOPSY US 11/26/2020 TONSILLECTOMY PRIMARY/SECONDARY <AGE 13 Tonsillectomy TYMPANOSTOMY GENERAL ANES BILA 05/07/2011 ALLERGIES: Penicillins, Sulfa (Sulfonamide Antibiotics), and Tape [Adhesive Tape-Silicones] Medications reviewed: Yes FAMILY HISTORY Problem Relation Age of Onset Hypertension Mother Glaucoma Mother Cancer Father lymphoma, Hypertension Father Cancer Paternal Aunt Cancer Paternal Uncle Skin Cancer Paternal Uncle Heart disease Maternal Grandfather SOCIAL HISTORY: Social History Tobacco Use Smoking status: Never Smokeless tobacco: Never Vaping Use Vaping Use: Never used Substance Use Topics Alcohol use: Not Currently Comment: 1.5 liters of wine per week. Stopped 2013. Drug use: No Reji likes to exercise by walking. He watches his diet for sodium, low fat and low cholesterol some of the time. List of current specialists seen: Dr. Grady, ophthalmology. Dr. Kee Aceves, dermatology. Dr. Smallwood [facility]. Audiology. End of Live Planning discussed including patients advanced directive wishes: Yes Copy needed. PHQ-2 / Depression screen He in the past two weeks denies having felt down, depressed, hopeless, or with little interest or pleasure in doing things. Functional Ability/Safety Screen 1. Was the patient's timed Up and Go test unsteady or longer than 30 seconds? No 2. Does the patient need help with the phone, transportation, shopping,preparing meals, housework, laundry, medications or managing money? No 3. Does your home have rugs in the hallway, lack of grab bars in the bathroom, lack of handrails on the stairs or have poor lighting? No Hearing Evaluation: wears hearing aids PHYSICAL EXAM BP 136/78 (BP Site: Left Arm, BP Position: Sitting, BP Cuff Size: Large Adult) Pulse 60 Temp 36.3 C (97.3 F) (Temporal) Resp 20 Ht 171.7 cm (5' 7.6 ) Wt 128.3 kg (282 lb 12.8 oz) BMI 43.51 kg/m Alert and oriented X 3: YES Body mass index is 43.51 kg/m . Visual acuity: OD: 20/20 OS: 20/ 25 OU: 20/20 The Mini Cog(c): Word recall=3/3 + Clock drawing=2/2=5/5. (<3 is positive). ASSESSMENT/PLAN: 76 year old male The following prevention plan was discussed during the office visit and provided to the patient: - Counseled on healthy diet and regular exercise - Discussed need for and benefit of weight loss. BMI 43.51 kg/(m^2) - Fall avoidance - Vaccines recommended Td booster. 1. Medicare annual wellness visit, subsequent - ICD9: V70.0, ICD10: Z00.00 (primary diagnosis) - DEPRESSION SCREENING/ASSESSMENT - ADVANCE CARE PLAN DISCUSSION 2. Hyperlipidemia, unspecified hyperlipidemia type - ICD9: 272.4, ICD10: E78.5 - PRAVASTATIN 40 MG TABLET - COMP METABOLIC PANEL 3. Essential hypertension - ICD9: 401.9, ICD10: I10 - fair control - Continue current medication(s) - Recommended regular aerobic exercise. - Discussed need and benefit for weight loss. - Goal of BP <130/80 4. 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 - Test results pertinent to today's visit were reviewed and discussed with the patient. - METFORMIN 500 MG TABLET - LIPID PANEL BASIC - HGB A1C - ALBUMIN/CREAT RATIO RND UR 5. Obesity, Class III, BMI >= 40 - ICD9: 278.01, ICD10: E66.01 Weight increasing - Lifestyle changes. He will increase protein and reduce carbs. Increase activity as tolerated. Nando Plummer MD documented in this encounter [facility] 02-10-2022 Miscellaneous Notes Patient has been identified by name and date of : Yes Patient phones for refill(s): Requested Prescriptions Pending Prescriptions Disp Refills doxazosin (CARDURA) 2 mg tablet 180 tablet 1 Sig: Take 2 tablets by mouth daily at bedtime. Date of last office visit in primary care: 09/03/2021 Medicare Wellness: 03/11/2022 Last 2 Encounter Wt Readings: Date: Wt: 09/03/2021 128.8 kg (284 lb) 05/14/2021 126.1 kg (278 lb) Previous labs/tests for medication: Blood Pressure: BUN (mg/dL) Date Value 09/02/2021 16 02/28/2021 20 Sodium (mmol/L) Date Value 09/02/2021 139 02/28/2021 138 Last 1 Encounter BP Readings: Date: BP: 09/03/2021 124/74 Please advise. Thank you. Cristel Good LPN documented in this encounter [facility] 01-19-2022 Miscellaneous Notes Reason for call: Patient calling with request for physician referral: Patient referred to Pulmonology Department. Patient denies any new or worsening symptoms of which a provider is not aware: Yes. Outcome: Patient conferenced to the appointment center for assistance with scheduling. documented in this encounter [facility] 2021 Miscellaneous Notes YAZAN: 09/03/2021 Last refill: 04/28/2021 QTY: 90 Refills: 1 Patient's request for medication is as follows: Pending Prescriptions Disp Refills MELOXICAM 15 MG TABLET 90 tablet 1 Sig: Take 1 tablet by mouth once daily. With food. KYMBERLY: No Please approve the above prescription(s) to electronically send to pharmacy. Rory Mcgovern Ma documented in this encounter [facility] 10-14-2021 History of Presen t illness Narrative Episode Visit Count: 4 Therapist That Will Oversee The Plan Of Care: Ryland Haywood Start of Care Date: 09/09/21 Onset Date: 09/09/86 (5 years ago is when hip pain started) Plan of Care Certification Date: 09/09/21 Next Certification Due Date: 10/14/21 Patient Identified by Name and Date of : Yes REHABILITATION AND SPORTS THERAPY PHYSICAL THERAPY DISCONTINUANCE OF CARE PLAN OF CARE UPDATE: Assessment: Reji Sarmiento is discontinued from Physical Therapy services due to goal achievement. and Patient/Clinician mutual decision to discontinue current plan of care.. Patient was seen for 4 visits from Start of Care Date: 09/09/21 to 10/14/2021 and treatment included: Therapeutic exercise, Self-fpc management and Patient/Family/Caregiver Education. Goals updated 10/14/2021 Goals for Episode of Care: created on 09/09/21 through 12/02/21 Pt will be able to tolerate laying down without increase symptoms for improved ability to sleep in 12 weeks or less- Progressed Pt will report decreased hip pain by 70% or greater in 12 weeks or less for improved tolerance to walking - Not assessed Pt will report overall 70% improvement in the LBP for improved QOL and improved tolerance to prolonged sitting - Progressed [place] in home exercise program. - Met Patient Goals: Pt wants to decrease the pain SUBJECTIVE: Patient Reason for Visit: Pt states that PT has been helpful. Pt feels stronger and more confident. Pt has not had the bad stiffness in the mornings. Pt states he feels he still walks differently still and he does not necessarily feels stable. Pt is not able to walk far. Pt states that he can feel dizzy when trying to walk distances and he can get out of breath. Functional Limitations: walking Pain: Post Treatment Pain Post Treatment Pain Level: 0 Post Treatment Pain Location: Low Back/Lumbar Spine - Left;Low Back/Lumbar Spine - Right PROMIS Scales Higher is Better 09/01/2021 09/07/2021 10/12/2021 Phys Func - Score - 33 (moderate dysfunction) 33 (moderate dysfunction) Phys Func - Percentile - 4 % 4 % Social Roles - Score - 43 (mild dysfunction) 48 (within normal limits) Social Role - Percentile - 24 % 42 % GH Physical - Score 47.7 (Good) - - GH Physical - Percentile 41 % - - GH Mental - Score 53.3 (Very Good) - - GH Mental - Percentile 63 % - - Self-Eff Symptom - Score - 41 (Average) 44 (Average) Self-Eff Symptom - Percentile - 18 % 27 % T-scores: mean of general population = 50. 5 points is clinically meaningfully difference Percentiles provide an indication of how the patient's score ranks in relation to the general population. Higher percentile rankings indicate better function/quality of life. 50th percentile is the average of the general population and indicates half of respondents had a worse score. Lower is Better 09/07/2021 10/12/2021 Fatigue - Score 64 (moderate) 59 (mild) Fatigue - Percentile 8 % 18 % T-scores: mean of general population = 50. 5 points is clinically meaningfully difference Percentiles provide an indication of how the patient's score ranks in relation to the general population. Higher percentile rankings indicate better function/quality of life. 50th percentile is the average of the general population and indicates half of respondents had a worse score. OBJECTIVE MEASURES WITH LEVEL OF FUNCTION: Lumbar Spine AROM Lumbar Flexion: Normal Lumbar Extension: Normal Gait Gait: Modified Independent Gait Distance (feet): 50 Gait Device: Cane Gait Observation: Gait WNL with use of AD and this decreases veering to the L or R. Balance Static Standing Balance: Narrow Base of Support;Tandem Stance;Single Leg Stance Narrow Base of Support: 30 Tandem Stance: 0 Single Leg Stance: 5 (RLE; 0 sec LLE) TREATMENT: Self-Assisted Management: 1: All objective measures taken this session 2: Discussed ways to improve safety with ambulation at home with use of a SPC when walking over uneven ground and longer distance. Discussed focusing on the path ahead and that constant scanning of the environment, although good to do periodically, does not need to be done constantly. Discussed how excessive body and head movements when walking can cause a balance disturbance and lead the pt to veer to one side or the other. Discussed proper use of Cane with ADL's as well as proper height of cane. Skilled Intervention: Skilled judgment in the selection of proper modification for activity of daily living/home management based on clinical presentation, deficits, and needs. Billing Self-Care/Home Management Treatment Minutes: 40 Total Treatment Time Minutes (timed/untimed): 40 Ryland Haywood PT documented in this encounter [facility] 10-02-2021 History of Presen t illness Narrative Episode Visit Count: 3 Therapist That Will Oversee The Plan Of Care: Ryland Haywood Start of Care Date: 09/09/21 Onset Date: 09/09/86 (5 years ago is when hip pain started) Plan of Care Certification Date: 09/09/21 Next Certification Due Date: 10/14/21 Patient Identified by Name and Date of : Yes REHABILITATION AND SPORTS THERAPY PHYSICAL THERAPY TREATMENT NOTE ASSESSMENT: Reji Sarmiento tolerated the session with no issues. He demonstrated good tolerance to heavier load with the therapeutic exercises. The patient will continue to benefit from ongoing skilled physical therapy to progress toward set goals. PLAN FOR NEXT VISIT: POC update SUBJECTIVE: Patient Reason for Visit: Pt states he gets 40-60 reps in a day and the exercises are going fine. Pt did lift and move a heavy object into the car and now he upsaet some of his core muscles. Pt has not noticed anymore severe morning stiffness since startign the exercises. Pain: Pain Pain Level: 0 Pain Location: Low Back/Lumbar Spine - Right;Low Back/Lumbar Spine - Left Additional Pain Information : Location 2 Pain Location 2: Hip - Left;Hip - Right Post Treatment Pain Post Treatment Pain Level: 0 Post Treatment Pain Location: Low Back/Lumbar Spine - Left;Low Back/Lumbar Spine - Right OBJECTIVE MEASURES WITH LEVEL OF FUNCTION: Walking is WNL TREATMENT: Therapeutic Exercise: 1: Seated TA bracing with chest press 11# 2 x 25 reps 2: Seated opposite arm leg lift 2 x 10 each side 3: Seated TA with hip ER BTB x 20 reps 4: Seated TA with hor abd BTB x2 tails 2 x 10 5: Standing incline plank with alt hip ext x 10 each Skilled Intervention: Patient was educated in proper exercise technique and purpose for exercises. Billing Therapeutic Exercise Treatment Minutes: 38 Total Treatment Time Minutes (timed/untimed): 38 Ryland Haywood PT documented in this encounter [facility] 09-18-2021 History of Presen t illness Narrative Episode Visit Count: 2 Therapist That Will Oversee The Plan Of Care: Ryland Haywood Start of Care Date: 09/09/21 Onset Date: 09/09/86 (5 years ago is when hip pain started) Plan of Care Certification Date: 09/09/21 Next Certification Due Date: 10/14/21 Patient Identified by Name and Date of : Yes REHABILITATION AND SPORTS THERAPY PHYSICAL THERAPY TREATMENT NOTE ASSESSMENT: Reji Sarmiento tolerated the session with no issues. He demonstrated good tolerance to all therapeutic exercises. The patient will continue to benefit from ongoing skilled physical therapy to progress toward set goals. PLAN FOR NEXT VISIT: Continue with seated core exercises. SUBJECTIVE: Patient Reason for Visit: Pt states that the exercises went well. Pt states he did 4 sets of 20 reps instead of 10. Pt states that he likes the exercise because it is helping with the stiffness in the back. Pt states that his severe stiffness is better by 75% already. Pain: Pain Pain Level: 0 Pain Location: Low Back/Lumbar Spine - Right;Low Back/Lumbar Spine - Left Additional Pain Information : Location 2 Pain Location 2: Hip - Left;Hip - Right Post Treatment Pain Post Treatment Pain Level: 0 Post Treatment Pain Location: Low Back/Lumbar Spine - Left;Low Back/Lumbar Spine - Right Post Treatment Symptoms: 0 Post Treatment Pain Score 2: No Change Post Treatment Pain Location 2: Hip - Left;Hip - Right OBJECTIVE MEASURES WITH LEVEL OF FUNCTION: Good form with all therapeutic exercises TREATMENT: Therapeutic Exercise: 1: Seated TA bracing with chest press 11# 2 x 20 reps 2: Seated TA bracing with marches 3 x 10 each leg 3: Seated TA bracing with resisted hor abd GTB 3 x 20 reps 4: Seated [place] GTB x 30 second variable pulls each side 5: Standing incline plank with alt hip ext 2 x 10 each 6: Seated TA bracing with ER GTB x 20 reps Skilled Intervention: Patient was educated in proper exercise technique and purpose for exercises. Provided written instruction for home exercise program to facilitate proper performance and compliance. Correct performance of therapeutic exercises was facilitated with verbal and visual cuing. Billing Therapeutic Exercise Treatment Minutes: 45 Total Treatment Time Minutes (timed/untimed): 45 Ryland Haywood PT documented in this encounter [facility] 09-09-2021 History of Presen t illness Narrative Episode Visit Count: 1 Therapist That Will Oversee The Plan Of Care: Ryland Haywood Start of Care Date: 09/09/21 Onset Date: 09/09/86 (5 years ago is when hip pain started) Plan of Care Certification Date: 09/09/21 Next Certification Due Date: 10/14/21 Patient Identified by Name and Date of : Yes REHABILITATION AND SPORTS THERAPY PHYSICAL THERAPY EVALUATION PLAN OF CARE: Assessment: Reji Sarmiento presents with chief complaint of LBP and bilateral hip pain that interferes with running;bending;sitting (Sitting unsupported) . He presents with impairments in gait, independence in exercise, joint mobility, overall function, range of motion and strength . PROMIS (Patient-Reported Outcomes Measurement Information System) scores were reviewed and all domains identified as a rehabilitation concern. Prognosis for therapy is Good due to: current objective clinical presentation . Pt has familiar back pain with sitting down for prolonged period of time without back support and pt seeks out back support to relieve pain which suggests pt may benefit from a core stabilization program. Difficult to examine leg ROM due to pt's poor tolerance to supine lying position. Negative SL stance for pain in hip abductors bilat. He will benefit from skilled therapy services to meet the goals established for this plan of care as noted below. Classification Low Back Pain Subgroup Classification: Core stabilization subgroup: recommended visits 10. Core Stabilization Subgroup Classification based on: segmental hinging (Pain with prolonged positions) Goals for Episode of Care: created on 09/09/21 through 12/02/21 Pt will be able to tolerate laying down without increase symptoms for improved ability to sleep in 12 weeks or less Pt will report decreased hip pain by 70% or greater in 12 weeks or less for improved tolerance to walking Pt will report overall 70% improvement in the LBP for improved QOL and improved tolerance to prolonged sitting [place] in home exercise program. Patient Goals: Pt wants to decrease the pain Planned Interventions, Frequency, and Duration: Current Frequency: 1x/week Duration: 4 weeks Total Number of Visits Planned: 4 Planned Treatment Interventions: Therapeutic exercise (15738);Neuromuscular re-education (37278);Manual therapy (65524);Self-fpc management (34478);Patient/Family/Caregiver Education PLAN FOR NEXT VISIT: Progress core strengthening. Further assess hip pain with subjective. Patient demonstrates good understanding of plan of care and treatment. The above goals and plan of care were discussed and agreed upon by patient/family. SUBJECTIVE: Reji Sarmiento is a 75 year old male seen today for LBP and hip pain with abnormality of gait. Pt does not feel comfortable with walking without holding onto things. Less arm swing on the LUE. Pt avoids bending and twisting at the same time, sit ups can be painful and they hit nerves .running is a challenge and painful. Pt is stiff in the morning and will get up and move around. Sitting in his chair always helps but laying down on the back does not help. Hip pain does not feel connected to the back. Pt states that walking is walk causes the hip pain. Back pain started 35 years ago when he did a sit-up and could not get off of the floor. Patient Goals: Pt wants to decrease the pain Functional Limitations: running;bending;sitting (Sitting unsupported) Prior Level of Function: Independent without limitations Relevant History Preferred Language: Sudanese Intake Information: Prescription present Previous Treatment: Pain meds Red Flags Vertebral Fracture Red Flags: Age >70 Vertebral Fracture Clinical Reasoning: Proceed with caution due to the above (1-2) risk factors Abdominal Aortic Aneurysm Red Flags: Age >60 Abdominal Aortic Aneurysm Clinical Reasoning: Proceed with caution Cancer Red Flags: Age >50 or <20 Cancer Clinical Reasoning: Proceed with caution Infection Clinical Reasoning: No identified risk factors. Cauda Equina Syndrome Clinical Reasoning: No identified risk factors. Red Flags - Cervical Cancer Red Flags: Age >50 or <20 Cancer Clinical Reasoning: Proceed with caution Infection Clinical Reasoning: No identified risk factors. Spine History Symptoms Location at Onset: Back Pain is Better Always: Rest Pain: Pain Pain Level: 0 Pain Location: Low Back/Lumbar Spine - Right;Low Back/Lumbar Spine - Left Additional Pain Information : Location 2 Pain Location 2: Hip - Left;Hip - Right PROMIS Scales Higher is Better 05/13/2021 09/01/2021 09/07/2021 Phys Func - Score - - 33 (moderate dysfunction) Phys Func - Percentile - - 4 % Social Roles - Score - - 43 (mild dysfunction) Social Role - Percentile - - 24 % GH Physical - Score 50.8 (Very Good) 47.7 (Good) - GH Physical - Percentile 53 % 41 % - GH Mental - Score 50.8 (Very Good) 53.3 (Very Good) - GH Mental - Percentile 53 % 63 % - Self-Eff Symptom - Score - - 41 (Average) Self-Eff Symptom - Percentile - - 18 % T-scores: mean of general population = 50. 5 points is clinically meaningfully difference Percentiles provide an indication of how the patient's score ranks in relation to the general population. Higher percentile rankings indicate better function/quality of life. 50th percentile is the average of the general population and indicates half of respondents had a worse score. Lower is Better 09/07/2021 Fatigue - Score 64 (moderate) Fatigue - Percentile 8 % T-scores: mean of general population = 50. 5 points is clinically meaningfully difference Percentiles provide an indication of how the patient's score ranks in relation to the general population. Higher percentile rankings indicate better function/quality of life. 50th percentile is the average of the general population and indicates half of respondents had a worse score. OBJECTIVE MEASURES WITH LEVEL OF FUNCTION: Lumbar Spine AROM Lumbar Flexion: Normal (tight hamstrings) Lumbar Extension: Normal Lumbar R Side-Bend: Minimal limitation;Increased pain Lumbar L Side-Bend: Moderate limitation;Increased pain Lumbar R Rotation: Normal Lumbar L Rotation: Normal LE Strength R Hip Flexion (L2): 4/5 R Knee Extension (L3): 5/5 R Knee Flexion: 5/5 R Ankle Dorsiflexion (L4): 5/5 L Hip Flexion (L2): 3+/5 L Knee Extension (L3): 4+/5 L Knee Flexion: 5/5 L Ankle Dorsiflexion (L4): 5/5 Gait Gait: Independent Gait Distance (feet): 50 Gait Device: None Gait Deviations: General Deviations Gait Observation: Decreased L arm swing with gait. Some increased hip ER on RLE>LLE. Education: Education Learning Preferences: Demonstration;Explanation;Perfor gary;Printed Materials Barriers: None Learning/educational needs: Home exercise program;Plan of Care Education Provided: Yes, see treatment interventions for education provided Education Provided To: Patient Education Mode/Type: Demonstration;Explanation/Discus ita;Performance Response to Education/Teach Back: States/Identifies;Return Demonstration TREATMENT: PT Treatment Interventions: Therapeutic Exercise Evaluation Therapeutic Exercise: 1: Discussed therapy goals, exam findings, and purpose of the HEP. Discussed the need for core strengthening in ways that do not cause increase pain. 2: Seated core engagement with arm press (no weight) forwards x 10 3: Seated core engagement with 7# MB press forwards x 10 reps Skilled Intervention: Patient was educated in proper exercise technique and purpose for exercises. Skilled judgment was provided in selection of appropriate interventions. Provided written instruction for home exercise program to facilitate proper performance and compliance. Correct performance of therapeutic exercises was facilitated with verbal and visual cuing. Billing * Evaluation Low Complexity: 1 Unit Therapeutic Exercise Treatment Minutes: 18 Total Treatment Time Minutes (timed and untimed codes) : 47 Ryland Haywood PT documented in this encounter [facility] documented as of this encounter (statuses as of 09/09/2021) [facility]2020 History of Past illness Narrative* Problem Noted Date Resolved Date Closed fracture of multiple ribs of both sides 0 12/15/2019 03/03/[address] 12/15/2019 12/19/2019 Pleural effusion 12/13/2019 12/19/2019 Displaced fracture of latera l end of right clavicle with routine healing 12/07/2019 03/03/2021 Fall 11/25/2019 12/19/2019 Loss of consciousness 11/25/2019 11/27/2019 Multiple fractures of ribs, bilateral, initial encounter for closed fracture 11/23/2019 03/03/2021 Closed nondisplaced fracture of shaft of right c lavicle 11/23/2019 03/03/2021 Trauma 11/22/2019 11/27/2019 Obesity, Class II, BMI 35-39.9 04/12/2019 0 08/29/2020 Chronic serous otitis media of both ears 013 01/11/2017 Overview: Chronic tympanostomies, Dr. Kramer, ENT Irritated//Inflamed Seborrheic Keratosis 012 01/10/2015 Viral warts, unspecified 01/30/2012 015 Actinic skin damage 01/30/2012 01/10/2015 Solar Lentigines 01/30/2012 01/10/2015 Cutaneous skin tags 01/30/2012 01/11/2017 Obesity, Class III, BMI 40-49.9 (morbid obesity) 07/27/2005 04/12/2019 documented as of this encounter (statuses as of 09/18/2021) [facility] History of Past illness Narrative* Problem Noted Date Resolved Date Closed fracture of multiple ribs of both sides 0 12/15/2019 03/03/[address] 12/15/2019 12/19/2019 Pleural effusion 12/13/2019 12/19/2019 Displaced fracture of latera l end of right clavicle with routine healing 12/07/2019 03/03/2021 Fall 11/25/2019 12/19/2019 Loss of consciousness 11/25/2019 11/27/2019 Multiple fractures of ribs, bilateral, initial encounter for closed fracture 11/23/2019 03/03/2021 Closed nondisplaced fracture of shaft of right c lavicle 11/23/2019 03/03/2021 Trauma 11/22/2019 11/27/2019 Obesity, Class II, BMI 35-39.9 04/12/2019 0 08/29/2020 Chronic serous otitis media of both ears 013 01/11/2017 Overview: Chronic tympanostomies, Dr. Kramer, ENT Irritated//Inflamed Seborrheic Keratosis 012 01/10/2015 Viral warts, unspecified 01/30/2012 015 Actinic skin damage 01/30/2012 01/10/2015 Solar Lentigines 01/30/2012 01/10/2015 Cutaneous skin tags 01/30/2012 01/11/2017 Obesity, Class III, BMI 40-49.9 (morbid obesity) 07/27/2005 04/12/2019 documented as of this encounter (statuses as of 10/02/2021) [facility] History of Past illness Narrative* Problem Noted Date Resolved Date Closed fracture of multiple ribs of both sides 0 12/15/2019 03/03/[address] 12/15/2019 12/19/2019 Pleural effusion 12/13/2019 12/19/2019 Displaced fracture of latera l end of right clavicle with routine healing 12/07/2019 03/03/2021 Fall 11/25/2019 12/19/2019 Loss of consciousness 11/25/2019 11/27/2019 Multiple fractures of ribs, bilateral, initial encounter for closed fracture 11/23/2019 03/03/2021 Closed nondisplaced fracture of shaft of right c lavicle 11/23/2019 03/03/2021 Trauma 11/22/2019 11/27/2019 Obesity, Class II, BMI 35-39.9 04/12/2019 0 08/29/2020 Chronic serous otitis media of both ears 013 01/11/2017 Overview: Chronic tympanostomies, Dr. Kramer, ENT Irritated//Inflamed Seborrheic Keratosis 012 01/10/2015 Viral warts, unspecified 01/30/2012 015 Actinic skin damage 01/30/2012 01/10/2015 Solar Lentigines 01/30/2012 01/10/2015 Cutaneous skin tags 01/30/2012 01/11/2017 Obesity, Class III, BMI 40-49.9 (morbid obesity) 07/27/2005 04/12/2019 documented as of this encounter (statuses as of 10/14/2021) [facility] History of Past illness Narrative* Problem Noted Date Resolved Date Closed fracture of multiple ribs of both sides 0 12/15/2019 03/03/[address] 12/15/2019 12/19/2019 Pleural effusion 12/13/2019 12/19/2019 Displaced fracture of latera l end of right clavicle with routine healing 12/07/2019 03/03/2021 Fall 11/25/2019 12/19/2019 Loss of consciousness 11/25/2019 11/27/2019 Multiple fractures of ribs, bilateral, initial encounter for closed fracture 11/23/2019 03/03/2021 Closed nondisplaced fracture of shaft of right c lavicle 11/23/2019 03/03/2021 Trauma 11/22/2019 11/27/2019 Obesity, Class II, BMI 35-39.9 04/12/2019 0 08/29/2020 Chronic serous otitis media of both ears 013 01/11/2017 Overview: Chronic tympanostomies, Dr. Kramer, ENT Irritated//Inflamed Seborrheic Keratosis 012 01/10/2015 Viral warts, unspecified 01/30/2012 015 Actinic skin damage 01/30/2012 01/10/2015 Solar Lentigines 01/30/2012 01/10/2015 Cutaneous skin tags 01/30/2012 01/11/2017 Obesity, Class III, BMI 40-49.9 (morbid obesity) 07/27/2005 04/12/2019 documented as of this encounter (statuses as of 2021) [facility] History of Past illness Narrative* Problem Noted Date Resolved Date Closed fracture of multiple ribs of both sides 0 12/15/2019 03/03/[address] 12/15/2019 12/19/2019 Pleural effusion 12/13/2019 12/19/2019 Displaced fracture of latera l end of right clavicle with routine healing 12/07/2019 03/03/2021 Fall 11/25/2019 12/19/2019 Loss of consciousness 11/25/2019 11/27/2019 Multiple fractures of ribs, bilateral, initial encounter for closed fracture 11/23/2019 03/03/2021 Closed nondisplaced fracture of shaft of right c lavicle 11/23/2019 03/03/2021 Trauma 11/22/2019 11/27/2019 Obesity, Class II, BMI 35-39.9 04/12/2019 0 08/29/2020 Chronic serous otitis media of both ears 013 01/11/2017 Overview: Chronic tympanostomies, Dr. Kramer, ENT Irritated//Inflamed Seborrheic Keratosis 012 01/10/2015 Viral warts, unspecified 01/30/2012 015 Actinic skin damage 01/30/2012 01/10/2015 Solar Lentigines 01/30/2012 01/10/2015 Cutaneous skin tags 01/30/2012 01/11/2017 Obesity, Class III, BMI 40-49.9 (morbid obesity) 07/27/2005 04/12/2019 documented as of this encounter (statuses as of 01/19/2022) [facility] History of Past illness Narrative* Problem Noted Date Resolved Date Closed fracture of multiple ribs of both sides 0 12/15/2019 03/03/[address] 12/15/2019 12/19/2019 Pleural effusion 12/13/2019 12/19/2019 Displaced fracture of latera l end of right clavicle with routine healing 12/07/2019 03/03/2021 Fall 11/25/2019 12/19/2019 Loss of consciousness 11/25/2019 11/27/2019 Multiple fractures of ribs, bilateral, initial encounter for closed fracture 11/23/2019 03/03/2021 Closed nondisplaced fracture of shaft of right c lavicle 11/23/2019 03/03/2021 Trauma 11/22/2019 11/27/2019 Obesity, Class II, BMI 35-39.9 04/12/2019 0 08/29/2020 Chronic serous otitis media of both ears 013 01/11/2017 Overview: Chronic tympanostomies, Dr. Kramer, ENT Irritated//Inflamed Seborrheic Keratosis 012 01/10/2015 Viral warts, unspecified 01/30/2012 015 Actinic skin damage 01/30/2012 01/10/2015 Solar Lentigines 01/30/2012 01/10/2015 Cutaneous skin tags 01/30/2012 01/11/2017 Obesity, Class III, BMI 40-49.9 (morbid obesity) 07/27/2005 04/12/2019 documented as of this encounter (statuses as of 02/11/2022) [facility] History of Past illness Narrative* Problem Noted Date Resolved Date Closed fracture of multiple ribs of both sides 0 12/15/2019 03/03/[address] 12/15/2019 12/19/2019 Pleural effusion 12/13/2019 12/19/2019 Displaced fracture of latera l end of right clavicle with routine healing 12/07/2019 03/03/2021 Fall 11/25/2019 12/19/2019 Loss of consciousness 11/25/2019 11/27/2019 Multiple fractures of ribs, bilateral, initial encounter for closed fracture 11/23/2019 03/03/2021 Closed nondisplaced fracture of shaft of right c lavicle 11/23/2019 03/03/2021 Trauma 11/22/2019 11/27/2019 Obesity, Class II, BMI 35-39.9 04/12/2019 0 08/29/2020 Chronic serous otitis media of both ears 013 01/11/2017 Overview: Chronic tympanostomies, Dr. Kramer, ENT Irritated//Inflamed Seborrheic Keratosis 012 01/10/2015 Viral warts, unspecified 01/30/2012 015 Actinic skin damage 01/30/2012 01/10/2015 Solar Lentigines 01/30/2012 01/10/2015 Cutaneous skin tags 01/30/2012 01/11/2017 Obesity, Class III, BMI 40-49.9 (morbid obesity) 07/27/2005 04/12/2019 documented as of this encounter (statuses as of 02/19/2022) [facility] History of Past illness Narrative* Problem Noted Date Resolved Date Closed fracture of multiple ribs of both sides 0 12/15/2019 03/03/[address] 12/15/2019 12/19/2019 Pleural effusion 12/13/2019 12/19/2019 Displaced fracture of latera l end of right clavicle with routine healing 12/07/2019 03/03/2021 Fall 11/25/2019 12/19/2019 Loss of consciousness 11/25/2019 11/27/2019 Multiple fractures of ribs, bilateral, initial encounter for closed fracture 11/23/2019 03/03/2021 Closed nondisplaced fracture of shaft of right c lavicle 11/23/2019 03/03/2021 Trauma 11/22/2019 11/27/2019 Obesity, Class II, BMI 35-39.9 04/12/2019 0 08/29/2020 Chronic serous otitis media of both ears 013 01/11/2017 Overview: Chronic tympanostomies, Dr. Kramer, ENT Irritated//Inflamed Seborrheic Keratosis 012 01/10/2015 Viral warts, unspecified 01/30/2012 015 Actinic skin damage 01/30/2012 01/10/2015 Solar Lentigines 01/30/2012 01/10/2015 Cutaneous skin tags 01/30/2012 01/11/2017 Obesity, Class III, BMI 40-49.9 (morbid obesity) 07/27/2005 04/12/2019 documented as of this encounter (statuses as of 03/11/2022) [facility] History of Past illness Narrative* Problem Noted Date Resolved Date Closed fracture of multiple ribs of both sides 0 12/15/2019 03/03/[address] 12/15/2019 12/19/2019 Pleural effusion 12/13/2019 12/19/2019 Displaced fracture of latera l end of right clavicle with routine healing 12/07/2019 03/03/2021 Fall 11/25/2019 12/19/2019 Loss of consciousness 11/25/2019 11/27/2019 Multiple fractures of ribs, bilateral, initial encounter for closed fracture 11/23/2019 03/03/2021 Closed nondisplaced fracture of shaft of right c lavicle 11/23/2019 03/03/2021 Trauma 11/22/2019 11/27/2019 Obesity, Class II, BMI 35-39.9 04/12/2019 0 08/29/2020 Chronic serous otitis media of both ears 013 01/11/2017 Overview: Chronic tympanostomies, Dr. Kramer, ENT Irritated//Inflamed Seborrheic Keratosis 012 01/10/2015 Viral warts, unspecified 01/30/2012 015 Actinic skin damage 01/30/2012 01/10/2015 Solar Lentigines 01/30/2012 01/10/2015 Cutaneous skin tags 01/30/2012 01/11/2017 Obesity, Class III, BMI 40-49.9 (morbid obesity) 07/27/2005 04/12/2019 documented as of this encounter (statuses as of 04/20/2022) [facility] History of Past illness Narrative* Problem Noted Date Resolved Date Closed fracture of multiple ribs of both sides 0 12/15/2019 03/03/[address] 12/15/2019 12/19/2019 Pleural effusion 12/13/2019 12/19/2019 Displaced fracture of latera l end of right clavicle with routine healing 12/07/2019 03/03/2021 Fall 11/25/2019 12/19/2019 Loss of consciousness 11/25/2019 11/27/2019 Multiple fractures of ribs, bilateral, initial encounter for closed fracture 11/23/2019 03/03/2021 Closed nondisplaced fracture of shaft of right c lavicle 11/23/2019 03/03/2021 Trauma 11/22/2019 11/27/2019 Obesity, Class II, BMI 35-39.9 04/12/2019 0 08/29/2020 Chronic serous otitis media of both ears 013 01/11/2017 Overview: Chronic tympanostomies, Dr. Kramer, ENT Irritated//Inflamed Seborrheic Keratosis 012 01/10/2015 Viral warts, unspecified 01/30/2012 015 Actinic skin damage 01/30/2012 01/10/2015 Solar Lentigines 01/30/2012 01/10/2015 Cutaneous skin tags 01/30/2012 01/11/2017 Obesity, Class III, BMI 40-49.9 (morbid obesity) 07/27/2005 04/12/2019 documented as of this encounter (statuses as of 08/18/2022) [facility] History of Past illness Narrative* Problem Noted Date Resolved Date Closed fracture of multiple ribs of both sides 0 12/15/2019 03/03/[address] 12/15/2019 12/19/2019 Pleural effusion 12/13/2019 12/19/2019 Displaced fracture of latera l end of right clavicle with routine healing 12/07/2019 03/03/2021 Fall 11/25/2019 12/19/2019 Loss of consciousness 11/25/2019 11/27/2019 Multiple fractures of ribs, bilateral, initial encounter for closed fracture 11/23/2019 03/03/2021 Closed nondisplaced fracture of shaft of right c lavicle 11/23/2019 03/03/2021 Trauma 11/22/2019 11/27/2019 Obesity, Class II, BMI 35-39.9 04/12/2019 0 08/29/2020 Chronic serous otitis media of both ears 013 01/11/2017 Overview: Chronic tympanostomies, Dr. Kramer, ENT Irritated//Inflamed Seborrheic Keratosis 012 01/10/2015 Viral warts, unspecified 01/30/2012 015 Actinic skin damage 01/30/2012 01/10/2015 Solar Lentigines 01/30/2012 01/10/2015 Cutaneous skin tags 01/30/2012 01/11/2017 Obesity, Class III, BMI 40-49.9 (morbid obesity) 07/27/2005 04/12/2019 documented as of this encounter (statuses as of 08/24/2022) [facility] History of Past illness Narrative* Problem Noted Date Resolved Date Closed fracture of multiple ribs of both sides 0 12/15/2019 03/03/[address] 12/15/2019 12/19/2019 Pleural effusion 12/13/2019 12/19/2019 Displaced fracture of latera l end of right clavicle with routine healing 12/07/2019 03/03/2021 Fall 11/25/2019 12/19/2019 Loss of consciousness 11/25/2019 11/27/2019 Multiple fractures of ribs, bilateral, initial encounter for closed fracture 11/23/2019 03/03/2021 Closed nondisplaced fracture of shaft of right c lavicle 11/23/2019 03/03/2021 Trauma 11/22/2019 11/27/2019 Obesity, Class II, BMI 35-39.9 04/12/2019 0 08/29/2020 Chronic serous otitis media of both ears 013 01/11/2017 Overview: Chronic tympanostomies, Dr. Kramer, ENT Irritated//Inflamed Seborrheic Keratosis 012 01/10/2015 Viral warts, unspecified 01/30/2012 015 Actinic skin damage 01/30/2012 01/10/2015 Solar Lentigines 01/30/2012 01/10/2015 Cutaneous skin tags 01/30/2012 01/11/2017 Obesity, Class III, BMI 40-49.9 (morbid obesity) 07/27/2005 04/12/2019 documented as of this encounter (statuses as of 08/24/2022) [facility] History of Past illness Narrative* Problem Noted Date Resolved Date Closed fracture of multiple ribs of both sides 0 12/15/2019 03/03/[address] 12/15/2019 12/19/2019 Pleural effusion 12/13/2019 12/19/2019 Displaced fracture of latera l end of right clavicle with routine healing 12/07/2019 03/03/2021 Fall 11/25/2019 12/19/2019 Loss of consciousness 11/25/2019 11/27/2019 Multiple fractures of ribs, bilateral, initial encounter for closed fracture 11/23/2019 03/03/2021 Closed nondisplaced fracture of shaft of right c lavicle 11/23/2019 03/03/2021 Trauma 11/22/2019 11/27/2019 Obesity, Class II, BMI 35-39.9 04/12/2019 0 08/29/2020 Chronic serous otitis media of both ears 013 01/11/2017 Overview: Chronic tympanostomies, Dr. Kramer, ENT Irritated//Inflamed Seborrheic Keratosis 012 01/10/2015 Viral warts, unspecified 01/30/2012 015 Actinic skin damage 01/30/2012 01/10/2015 Solar Lentigines 01/30/2012 01/10/2015 Cutaneous skin tags 01/30/2012 01/11/2017 Obesity, Class III, BMI 40-49.9 (morbid obesity) 07/27/2005 04/12/2019 documented as of this encounter (statuses as of 08/25/2022) [facility] History of Past illness Narrative* Problem Noted Date Resolved Date Closed fracture of multiple ribs of both sides 0 12/15/2019 03/03/[address] 12/15/2019 12/19/2019 Pleural effusion 12/13/2019 12/19/2019 Displaced fracture of latera l end of right clavicle with routine healing 12/07/2019 03/03/2021 Fall 11/25/2019 12/19/2019 Loss of consciousness 11/25/2019 11/27/2019 Multiple fractures of ribs, bilateral, initial encounter for closed fracture 11/23/2019 03/03/2021 Closed nondisplaced fracture of shaft of right c lavicle 11/23/2019 03/03/2021 Trauma 11/22/2019 11/27/2019 Obesity, Class II, BMI 35-39.9 04/12/2019 0 08/29/2020 Chronic serous otitis media of both ears 013 01/11/2017 Overview: Chronic tympanostomies, Dr. Kramer, ENT Irritated//Inflamed Seborrheic Keratosis 012 01/10/2015 Viral warts, unspecified 01/30/2012 015 Actinic skin damage 01/30/2012 01/10/2015 Solar Lentigines 01/30/2012 01/10/2015 Cutaneous skin tags 01/30/2012 01/11/2017 Obesity, Class III, BMI 40-49.9 (morbid obesity) 07/27/2005 04/12/2019 documented as of this encounter (statuses as of 09/14/2022) [facility] History of Past illness Narrative* Problem Noted Date Resolved Date Closed fracture of multiple ribs of both sides 0 12/15/2019 03/03/[address] 12/15/2019 12/19/2019 Pleural effusion 12/13/2019 12/19/2019 Displaced fracture of latera l end of right clavicle with routine healing 12/07/2019 03/03/2021 Fall 11/25/2019 12/19/2019 Loss of consciousness 11/25/2019 11/27/2019 Multiple fractures of ribs, bilateral, initial encounter for closed fracture 11/23/2019 03/03/2021 Closed nondisplaced fracture of shaft of right c lavicle 11/23/2019 03/03/2021 Trauma 11/22/2019 11/27/2019 Obesity, Class II, BMI 35-39.9 04/12/2019 0 08/29/2020 Chronic serous otitis media of both ears 013 01/11/2017 Overview: Chronic tympanostomies, Dr. Kramer, ENT Irritated//Inflamed Seborrheic Keratosis 012 01/10/2015 Viral warts, unspecified 01/30/2012 015 Actinic skin damage 01/30/2012 01/10/2015 Solar Lentigines 01/30/2012 01/10/2015 Cutaneous skin tags 01/30/2012 01/11/2017 Obesity, Class III, BMI 40-49.9 (morbid obesity) 07/27/2005 04/12/2019 documented as of this encounter (statuses as of 11/16/2022) [facility] History of Past illness Narrative* Problem Noted Date Resolved Date Closed fracture of multiple ribs of both sides 0 12/15/2019 03/03/[address] 12/15/2019 12/19/2019 Pleural effusion 12/13/2019 12/19/2019 Displaced fracture of latera l end of right clavicle with routine healing 12/07/2019 03/03/2021 Fall 11/25/2019 12/19/2019 Loss of consciousness 11/25/2019 11/27/2019 Multiple fractures of ribs, bilateral, initial encounter for closed fracture 11/23/2019 03/03/2021 Closed nondisplaced fracture of shaft of right c lavicle 11/23/2019 03/03/2021 Trauma 11/22/2019 11/27/2019 Obesity, Class II, BMI 35-39.9 04/12/2019 0 08/29/2020 Chronic serous otitis media of both ears 013 01/11/2017 Overview: Chronic tympanostomies, Dr. Kramer, ENT Irritated//Inflamed Seborrheic Keratosis 012 01/10/2015 Viral warts, unspecified 01/30/2012 015 Actinic skin damage 01/30/2012 01/10/2015 Solar Lentigines 01/30/2012 01/10/2015 Cutaneous skin tags 01/30/2012 01/11/2017 Obesity, Class III, BMI 40-49.9 (morbid obesity) 07/27/2005 04/12/2019 documented as of this encounter (statuses as of 12/03/2022) [facility] History of Past illness Narrative* Problem Noted Date Resolved Date Closed fracture of multiple ribs of both sides 0 12/15/2019 03/03/[address] 12/15/2019 12/19/2019 Pleural effusion 12/13/2019 12/19/2019 Displaced fracture of latera l end of right clavicle with routine healing 12/07/2019 03/03/2021 Fall 11/25/2019 12/19/2019 Loss of consciousness 11/25/2019 11/27/2019 Multiple fractures of ribs, bilateral, initial encounter for closed fracture 11/23/2019 03/03/2021 Closed nondisplaced fracture of shaft of right c lavicle 11/23/2019 03/03/2021 Trauma 11/22/2019 11/27/2019 Obesity, Class II, BMI 35-39.9 04/12/2019 0 08/29/2020 Chronic serous otitis media of both ears 013 01/11/2017 Overview: Chronic tympanostomies, Dr. Kramer, ENT Irritated//Inflamed Seborrheic Keratosis 012 01/10/2015 Viral warts, unspecified 01/30/2012 015 Actinic skin damage 01/30/2012 01/10/2015 Solar Lentigines 01/30/2012 01/10/2015 Cutaneous skin tags 01/30/2012 01/11/2017 Obesity, Class III, BMI 40-49.9 (morbid obesity) 07/27/2005 04/12/2019 documented as of this encounter (statuses as of 12/12/2022) [facility] History of Past illness Narrative* Problem Noted Date Diagnosed Date Resolved Date Closed fracture of multiple ribs of both sides 12/15/2019 03/03/[address] 12/15/2019 12/19/19 Pleural effusion 12/13/2019 12/19/2019 Displaced fracture of latera l end of right clavicle with routine healing 12/07/2019 03/03/2021 Fall 11/25/2019 12/19/2019 Loss of consciousness 11/25/20192019 Multiple fractures of ribs, bilateral, initial encounter for closed fracture 11/23/2019 Closed nondisplaced fracture of shaft of right clavicle 11/23/2019 03/03/2021 Trauma 11/22/2019 11/27/2019 Obesity, Class II, BMI 35-39.9 04/12/2019 08/29/2020 Chronic serous otitis media of both ears 12/22/2012 01/11/2017 Overview: Chronic tympanostomies, Dr. Kramer, ENT Irritated//Inflamed Seborrheic Keratosis 01/30/2012 01/10/2015 Viral warts, unspecified 01/30/201211/2014 Actinic skin damage 01/30/2012 01/11/20 15 Solar Lentigines 01/30/2012 01/10/2015 Cutaneous skin tags 01/30/2012 01/12/20 17 Obesity, Class III, BMI 40-4 9.9 (morbid obesity) 07/27/2005 04/12/2019 documented as of this encounter (statuses as of 02/26/2023) [facility] History of Past illness Narrative* Problem Noted Date Diagnosed Date Resolved Date Closed fracture of multiple ribs of both sides 12/15/2019 03/03/[address] 12/15/2019 12/19/19 20 Pleural effusion 12/13/2019 12/19/2019 Displaced fracture of latera l end of right clavicle with routine healing 12/07/2019 03/03/2021 Fall 11/25/2019 12/19/2019 Loss of consciousness 11/25/20192019 Multiple fractures of ribs, bilateral, initial encounter for closed fracture 11/23/2019 Closed nondisplaced fracture of shaft of right clavicle 11/23/2019 03/03/2021 Trauma 11/22/2019 11/27/2019 Obesity, Class II, BMI 35-39.9 04/12/2019 08/29/2020 Chronic serous otitis media of both ears 12/22/2012 01/11/2017 Overview: Chronic tympanostomies, Dr. Kramer, ENT Irritated//Inflamed Seborrheic Keratosis 01/30/2012 01/10/2015 Viral warts, unspecified 01/30/201211/2014 Actinic skin damage 01/30/2012 01/11/20 15 Solar Lentigines 01/30/2012 01/10/2015 Cutaneous skin tags 01/30/2012 01/12/20 17 Obesity, Class III, BMI 40-4 9.9 (morbid obesity) 07/27/2005 04/12/2019 documented as of this encounter (statuses as of 03/17/2023) [facility] History of Past illness Narrative* Problem Noted Date Diagnosed Date Resolved Date Closed fracture of multiple ribs of both sides 12/15/2019 03/03/[address] 12/15/2019 12/19/19 20 Pleural effusion 12/13/2019 12/19/2019 Displaced fracture of latera l end of right clavicle with routine healing 12/07/2019 03/03/2021 Fall 11/25/2019 12/19/2019 Loss of consciousness 11/25/20192019 Multiple fractures of ribs, bilateral, initial encounter for closed fracture 11/23/2019 Closed nondisplaced fracture of shaft of right clavicle 11/23/2019 03/03/2021 Trauma 11/22/2019 11/27/2019 Obesity, Class II, BMI 35-39.9 04/12/2019 08/29/2020 Chronic serous otitis media of both ears 12/22/2012 01/11/2017 Overview: Chronic tympanostomies, Dr. Kramer, ENT Irritated//Inflamed Seborrheic Keratosis 01/30/2012 01/10/2015 Viral warts, unspecified 01/30/201211/2014 Actinic skin damage 01/30/2012 01/11/20 15 Solar Lentigines 01/30/2012 01/10/2015 Cutaneous skin tags 01/30/2012 01/12/20 17 Obesity, Class III, BMI 40-4 9.9 (morbid obesity) 07/27/2005 04/12/2019 documented as of this encounter (statuses as of 03/24/2023) [facility] History of Past illness Narrative* Problem Noted Date Diagnosed Date Resolved Date Closed fracture of multiple ribs of both sides 12/15/2019 03/03/[address] 12/15/2019 12/19/19 20 Pleural effusion 12/13/2019 12/19/2019 Displaced fracture of latera l end of right clavicle with routine healing 12/07/2019 03/03/2021 Fall 11/25/2019 12/19/2019 Loss of consciousness 11/25/20192019 Multiple fractures of ribs, bilateral, initial encounter for closed fracture 11/23/2019 Closed nondisplaced fracture of shaft of right clavicle 11/23/2019 03/03/2021 Trauma 11/22/2019 11/27/2019 Obesity, Class II, BMI 35-39.9 04/12/2019 08/29/2020 Chronic serous otitis media of both ears 12/22/2012 01/11/2017 Overview: Chronic tympanostomies, Dr. Kramer, ENT Irritated//Inflamed Seborrheic Keratosis 01/30/2012 01/10/2015 Viral warts, unspecified 01/30/201211/2014 Actinic skin damage 01/30/2012 01/11/20 15 Solar Lentigines 01/30/2012 01/10/2015 Cutaneous skin tags 01/30/2012 01/12/20 17 Obesity, Class III, BMI 40-4 9.9 (morbid obesity) 07/27/2005 04/12/2019 documented as of this encounter (statuses as of 03/30/2023) [facility] History of Past illness Narrative* Problem Noted Date Diagnosed Date Resolved Date Closed fracture of multiple ribs of both sides 12/15/2019 03/03/[address] 12/15/2019 12/19/19 Pleural effusion 12/13/2019 12/19/2019 Displaced fracture of latera l end of right clavicle with routine healing 12/07/2019 03/03/2021 Fall 11/25/2019 12/19/2019 Loss of consciousness 11/25/20192019 Multiple fractures of ribs, bilateral, initial encounter for closed fracture 11/23/2019 Closed nondisplaced fracture of shaft of right clavicle 11/23/2019 03/03/2021 Trauma 11/22/2019 11/27/2019 Obesity, Class II, BMI 35-39.9 04/12/2019 08/29/2020 Chronic serous otitis media of both ears 12/22/2012 01/11/2017 Overview: Chronic tympanostomies, Dr. Kramer, ENT Irritated//Inflamed Seborrheic Keratosis 01/30/2012 01/10/2015 Viral warts, unspecified 01/30/201211/2014 Actinic skin damage 01/30/2012 01/11/20 15 Solar Lentigines 01/30/2012 01/10/2015 Cutaneous skin tags 01/30/2012 01/12/20 17 Obesity, Class III, BMI 40-4 9.9 (morbid obesity) 07/27/2005 04/12/2019 documented as of this encounter (statuses as of 04/11/2023) [facility] History of Past illness Narrative* Problem Noted Date Diagnosed Date Resolved Date Closed fracture of multiple ribs of both sides 12/15/2019 03/03/[address] 12/15/2019 12/19/19 20 Pleural effusion 12/13/2019 12/19/2019 Displaced fracture of latera l end of right clavicle with routine healing 12/07/2019 03/03/2021 Fall 11/25/2019 12/19/2019 Loss of consciousness 11/25/20192019 Multiple fractures of ribs, bilateral, initial encounter for closed fracture 11/23/2019 Closed nondisplaced fracture of shaft of right clavicle 11/23/2019 03/03/2021 Trauma 11/22/2019 11/27/2019 Obesity, Class II, BMI 35-39.9 04/12/2019 08/29/2020 Chronic serous otitis media of both ears 12/22/2012 01/11/2017 Overview: Chronic tympanostomies, Dr. Kramer, ENT Irritated//Inflamed Seborrheic Keratosis 01/30/2012 01/10/2015 Viral warts, unspecified 01/30/201211/2014 Actinic skin damage 01/30/2012 01/11/20 15 Solar Lentigines 01/30/2012 01/10/2015 Cutaneous skin tags 01/30/2012 01/12/20 17 Obesity, Class III, BMI 40-4 9.9 (morbid obesity) 07/27/2005 04/12/2019 documented as of this encounter (statuses as of 04/14/2023) [facility] History of Past illness Narrative* Problem Noted Date Diagnosed Date Resolved Date Closed fracture of multiple ribs of both sides 12/15/2019 03/03/[address] 12/15/2019 12/19/19 20 Pleural effusion 12/13/2019 12/19/2019 Displaced fracture of latera l end of right clavicle with routine healing 12/07/2019 03/03/2021 Fall 11/25/2019 12/19/2019 Loss of consciousness 11/25/20192019 Multiple fractures of ribs, bilateral, initial encounter for closed fracture 11/23/2019 Closed nondisplaced fracture of shaft of right clavicle 11/23/2019 03/03/2021 Trauma 11/22/2019 11/27/2019 Obesity, Class II, BMI 35-39.9 04/12/2019 08/29/2020 Chronic serous otitis media of both ears 12/22/2012 01/11/2017 Overview: Chronic tympanostomies, Dr. Kramer, ENT Irritated//Inflamed Seborrheic Keratosis 01/30/2012 01/10/2015 Viral warts, unspecified 01/30/201211/2014 Actinic skin damage 01/30/2012 01/11/20 15 Solar Lentigines 01/30/2012 01/10/2015 Cutaneous skin tags 01/30/2012 01/12/20 17 Obesity, Class III, BMI 40-4 9.9 (morbid obesity) 07/27/2005 04/12/2019 documented as of this encounter (statuses as of 04/20/2023) [facility] History of Past illness Narrative* Problem Noted Date Diagnosed Date Resolved Date Closed fracture of multiple ribs of both sides 12/15/2019 03/03/[address] 12/15/2019 12/19/19 20 Pleural effusion 12/13/2019 12/19/2019 Displaced fracture of latera l end of right clavicle with routine healing 12/07/2019 03/03/2021 Fall 11/25/2019 12/19/2019 Loss of consciousness 11/25/20192019 Multiple fractures of ribs, bilateral, initial encounter for closed fracture 11/23/2019 Closed nondisplaced fracture of shaft of right clavicle 11/23/2019 03/03/2021 Trauma 11/22/2019 11/27/2019 Obesity, Class II, BMI 35-39.9 04/12/2019 08/29/2020 Chronic serous otitis media of both ears 12/22/2012 01/11/2017 Overview: Chronic tympanostomies, Dr. Kramer, ENT Irritated//Inflamed Seborrheic Keratosis 01/30/2012 01/10/2015 Viral warts, unspecified 01/30/201211/2014 Actinic skin damage 01/30/2012 01/11/20 15 Solar Lentigines 01/30/2012 01/10/2015 Cutaneous skin tags 01/30/2012 01/12/20 17 Obesity, Class III, BMI 40-4 9.9 (morbid obesity) 07/27/2005 04/12/2019 documented as of this encounter (statuses as of 04/28/2023) [facility] History of Past illness Narrative* Problem Noted Date Diagnosed Date Resolved Date Closed fracture of multiple ribs of both sides 12/15/2019 03/03/[address] 12/15/2019 12/19/19 20 Pleural effusion 12/13/2019 12/19/2019 Displaced fracture of latera l end of right clavicle with routine healing 12/07/2019 03/03/2021 Fall 11/25/2019 12/19/2019 Loss of consciousness 11/25/20192019 Multiple fractures of ribs, bilateral, initial encounter for closed fracture 11/23/2019 Closed nondisplaced fracture of shaft of right clavicle 11/23/2019 03/03/2021 Trauma 11/22/2019 11/27/2019 Obesity, Class II, BMI 35-39.9 04/12/2019 08/29/2020 Chronic serous otitis media of both ears 12/22/2012 01/11/2017 Overview: Chronic tympanostomies, Dr. Kramer, ENT Irritated//Inflamed Seborrheic Keratosis 01/30/2012 01/10/2015 Viral warts, unspecified 01/30/201211/2014 Actinic skin damage 01/30/2012 01/11/20 15 Solar Lentigines 01/30/2012 01/10/2015 Cutaneous skin tags 01/30/2012 01/12/20 17 Obesity, Class III, BMI 40-4 9.9 (morbid obesity) 07/27/2005 04/12/2019 documented as of this encounter (statuses as of 05/06/2023) [facility] History of Past illness Narrative* Problem Noted Date Diagnosed Date Resolved Date Closed fracture of multiple ribs of both sides 12/15/2019 03/03/[address] 12/15/2019 12/19/19 20 Pleural effusion 12/13/2019 12/19/2019 Displaced fracture of latera l end of right clavicle with routine healing 12/07/2019 03/03/2021 Fall 11/25/2019 12/19/2019 Loss of consciousness 11/25/20192019 Multiple fractures of ribs, bilateral, initial encounter for closed fracture 11/23/2019 Closed nondisplaced fracture of shaft of right clavicle 11/23/2019 03/03/2021 Trauma 11/22/2019 11/27/2019 Obesity, Class II, BMI 35-39.9 04/12/2019 08/29/2020 Chronic serous otitis media of both ears 12/22/2012 01/11/2017 Overview: Chronic tympanostomies, Dr. Kramer, ENT Irritated//Inflamed Seborrheic Keratosis 01/30/2012 01/10/2015 Viral warts, unspecified 01/30/201211/2014 Actinic skin damage 01/30/2012 01/11/20 15 Solar Lentigines 01/30/2012 01/10/2015 Cutaneous skin tags 01/30/2012 01/12/20 17 Obesity, Class III, BMI 40-4 9.9 (morbid obesity) 07/27/2005 04/12/2019 documented as of this encounter (statuses as of 05/19/2023) [facility] Diagnosis Lumbar disc herniation Displacement of lumbar intervertebral disc without myelopathy Hip pain, bilateral Pain in joint, pelvic region and thigh Abnormal gait Abnormality of gait [facility] Diagnosis Lumbar disc herniation- Primary Displacement of lumbar intervertebral disc without myelopathy Hip pain, bilateral Pain in joint, pelvic region and thigh Abnormal gait Abnormality of gait [facility] Diagnosis Lumbar disc herniation- Primary Displacement of lumbar intervertebral disc without myelopathy Hip pain, bilateral Pain in joint, pelvic region and thigh Abnormal gait Abnormality of gait [facility] Diagnosis Lumbar disc herniation- Primary Displacement of lumbar intervertebral disc without myelopathy Hip pain, bilateral Pain in joint, pelvic region and thigh Abnormal gait Abnormality of gait [facility] Diagnosis Osteoarthritis, unspecified osteoarthritis type, unspecified site [facility] Diagnosis Essential hypertension Unspecified essential hypertension [facility] Diagnosis Medicare annual wellness visit, subsequent- Primary Routine general medical examination at a [facility] care facility Hyperlipidemia, unspecified hyperlipidemia type Essential hypertension Unspecified essential hypertension 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) Obesity, Class III, BMI >= 40 Morbid obesity [facility] Diagnosis Essential hypertension Unspecified essential hypertension [facility] Diagnosis Bronchitis Bronchitis, not specified as acute or chronic documented [facility] Diagnosis Mild persistent asthma without complication- Primary Unspecified asthma Allergic rhinitis, unspecified seasonality, unspecified trigger History of multiple allergies Morbid obesity with BMI of 40.0-44.9, adult (HCC) Morbid obesity [facility] Diagnosis Essential hypertension Unspecified essential hypertension [facility] Diagnosis Osteoarthritis, unspecified osteoarthritis type, unspecified site [facility] Diagnosis Mild persistent asthma without complication- Primary Unspecified asthma Dyspnea and respiratory abnormalities Other dyspnea and respiratory abnormality Allergic rhinitis, unspecified seasonality, unspecified trigger Morbid obesity with BMI of 40.0-44.9, adult (HCC) Morbid obesity [facility] Diagnosis Dyspnea and respiratory abnormalities- Primary Other dyspnea and respiratory abnormality Mild pulmonary hypertension (HCC) Other chronic pulmonary heart diseases [facility] Essential hypertension Unspecified essential hypertension [facility] Diagnosis Medicare annual wellness visit, subsequent- Primary Routine general medical examination at a [facility] care facility Essential hypertension Unspecified essential hypertension 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) Hyperlipidemia, unspecified hyperlipidemia type 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 Heart murmur Undiagnosed cardiac murmurs Dyspnea on exertion Other dyspnea and respiratory abnormality Edema of both legs Edema Muscle cramps Cramp of limb [facility] Diagnosis 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 [facility] Diagnosis Multinodular goiter- Primary Nontoxic multinodular goiter [facility] Diagnosis Abnormal ultrasound of thyroid gland Nonspecific abnormal results of thyroid function study Multinodular goiter Nontoxic multinodular goiter [facility] Diagnosis Bacterial sinusitis- Primary Unspecified sinusitis (chronic) Abnormal ultrasound of thyroid gland Nonspecific abnormal results of thyroid function study [facility] Diagnosis Bacterial sinusitis- Primary Unspecified sinusitis (chronic) Abnormal ultrasound of thyroid gland Nonspecific abnormal results of thyroid function study documented in this encounter [facility] for referral (narrative)* Outpatient Procedure (Routine) - Closed Specialty Diagnoses / [facility] Diagnoses Bronchitis Procedures NITRIC OXIDE, EXHALED NITRIC OXIDE GAS DETERMINATION Kimberly Hdez MD [address] [place] [address] [address] Referral ID Status Reason Start Date Expiration Date V isits Requested Visits Authorized [id number] Closed Auto-Generate d Referral 08/24/2022 09/23/2023 1 1 * Outpatient Procedure (Routine) - Closed Specialty Diagnoses / Procedures [facility] Diagnoses Bronchitis Procedures SPIROMETRY WITH DILATOR IF OBSTRUCTED BRNCDILAT RSPSE SPMTRY PRE&POST-BRNCDILAT ADMN Kimberly Hdez MD [address] [place] [address] [address] Referral ID Status Reason Start Date Expiration Date V isits Requested Visits Authorized [id number] Closed Auto-Generate d Referral 08/24/2022 09/23/2023 1 1 [facility] for referral (narrative)* Outpatient Procedure (Routine) - Pending Review Specialty Diagnoses / Procedures [facility] Diagnoses Dyspnea and respiratory abnormalities Procedures ECHO ECHO TTHRC R-T 2D W/WOM-MODE COMPL SPEC&COLR D Sahara Andrade PA-C [address] [place] [address] [facility] [address] [address] Referral ID Status Reason Start Date Expiration Date Visits Requested Visits Authorized [id number] Pending Review Auto-Generat ed Referral 12/03/2022 12/03/2023 1 1 [facility] for referral (narrative)* Diagnostic Procedure Only (Routine) - Authorized Specialty Diagnoses / Procedures Referred By Contac t Referred To Contact US IMAGING Diagnoses 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 Procedures US THYROID/PARATHYROID US SOFT TISSUE HEAD & NECK REAL TIME IMGE Nando Ramírez MD [address] [place] [address] Us Imaging [facility] Referral ID Status Reason Start Date Expiration Date Visits Requested Visits Authorized [id number] Authorized Auto-Generat ed Referral 04/28/2024 1 1 * Transition of Care (Routine) - Ref Not Required Specialty Diagnoses / Procedures Referred By Contac t Referred To Contact Cardiology Diagnoses Heart murmur Dyspnea on exertion Procedures CONSULT TO CARDIOLOGY Nando Plummer MD [address] [place] [address] Referral ID Status Reason Start Date Expiration Date Visits Requested Visits Authorized [id number] Ref Not Required PCP Requested Referral 03/29/2024 1 1 [facility] for referral (narrative)* Diagnostic Procedure Only (Routine) - Closed Specialty Diagnoses / Procedures Referred By Contac t Referred To Contact US IMAGING Diagnoses 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 Procedures US THYROID/PARATHYROID US SOFT TISSUE HEAD & NECK REAL TIME IMGE Nando Ramírez MD [address] [place] [address] Us Imaging [facility] Referral ID Status Reason Start Date Expiration Date V isits Requested Visits Authorized [id number] Closed Auto-Generate d Referral 03/30/2023 04/28/2024 1 1 [facility] Summary Purpose Family History No Family History Records FoundNo Family History Records FoundNo Family History Records FoundNo Family History Records Found Advance Directives No Advanced Directives Records FoundDocuments on File Type Date Recorded Patient Media Services Coordinator Expl anation Advance Directive(s) 05/14/2021 7:56 AM Advance Directive(s) 11/26/2020 10:00 AM Advance Directive(s) 12/13/2019 4:12 PM Advance Directive(s) 11/24/2019 12:16 PM Reason for Referral Specialty Diagnoses / Procedures Referred By Contac t Referred To Contact Cardiology Diagnoses Dyspnea and respiratory abnormalities Mild pulmonary hypertension (HCC) Procedures CONSULT TO CARDIOLOGY OFFICE/OUTPATIENT [facility] 60-74 MINUTES Sahara Andrade PA-C [address] [place] [address] Referral ID Status Reason Start Date Expiration Date Visits Requested Visits Authorized [id number] Authorized PCP Requested Referral 12/11/2022 12/11/2023 1 1 Specialty Diagnoses / Procedures Referred By Contac t Referred To Contact General Surgery Diagnoses Multinodular goiter Procedures CONSULT TO GENERAL SURGERY OFFICE/OUTPATIENT [facility] 60-74 MINUTES Nando Plummer MD [address] [place] [address] Referral ID Status Reason Start Date Expiration Date Visits Requested Visits Authorized [id number] Authorized PCP Requested Referral 04/10/2023 04/09/2024 1 1 Specialty Diagnoses / Procedures Referred By Contac t Referred To Contact Ent - Otolaryngology Diagnoses Bacterial sinusitis Procedures CONSULT TO ENT [place] Srinivasan APRN.[employer] [address] [place] [address] Referral ID Status Reason Start Date Expiration Date Visits Requested Visits Authorized [id number] Ref Not Required PCP Requested Referral 05/05/2024 1 1 Additional Source Comments (unrecognized sect ion and content) No Status Records FoundNo Status Records FoundNo Status Records FoundNo Status Records Found INFORMATION SOURCE (unrecogn ized section and content) DATE CREATED AUTHOR AUTHOR'S ORGANIZ ATION 05/15/2021 [facility] DATE CREATED AUTHOR AUTHOR'S ORGANIZ ATION 06/12/2023 [facility] DATE CREATED AUTHOR AUTHOR'S ORGANIZ ATION 06/23/2023 [facility] Source Comments (unrecognize d section and content) In the event this informatio n is protected by the Federal Confidentiality of Alcohol and Drug Abuse Patient Records regulations: The Federal rules restrict any use of the information to criminally investigate or prosecute any alcohol or drug abuse patient.[facility] the event this information is protected by the Federal Confidentiality of Alcohol and Drug Abuse Patient Records regulations: The Federal rules restrict any use of the information to criminally investigate or prosecute any alcohol or drug abuse patient.[facility] HospitalIn the event this information is protected by the Federal Confidentiality of Alcohol and Drug Abuse Patient Records regulations: The Federal rules restrict any use of the information to criminally investigate or prosecute any alcohol or drug abuse patient.[facility] the event this information is protected by the Federal Confidentiality of Alcohol and Drug Abuse Patient Records regulations: The Federal rules restrict any use of the information to criminally investigate or prosecute any alcohol or drug abuse patient.[facility] HospitalIn the event this information is protected by the Federal Confidentiality of Alcohol and Drug Abuse Patient Records regulations: The Federal rules restrict any use of the information to criminally investigate or prosecute any alcohol or drug abuse patient.[facility] HospitalIn the event this information is protected by the Federal Confidentiality of Alcohol and Drug Abuse Patient Records regulations: The Federal rules restrict any use of the information to criminally investigate or prosecute any alcohol or drug abuse patient.[facility] Hospital[facility] the event this information is protected by the Federal Confidentiality of Alcohol and Drug Abuse Patient Records regulations: The Federal rules restrict any use of the information to criminally investigate or prosecute any alcohol or drug abuse patient.[facility] HospitalIn the event this information is protected by the Federal Confidentiality of Alcohol and Drug Abuse Patient Records regulations: The Federal rules restrict any use of the information to criminally investigate or prosecute any alcohol or drug abuse patient.[facility] HospitalIn the event this information is protected by the Federal Confidentiality of Alcohol and Drug Abuse Patient Records regulations: The Federal rules restrict any use of the information to criminally investigate or prosecute any alcohol or drug abuse patient.[facility] Hospital[facility] the event this information is protected by the Federal Confidentiality of Alcohol and Drug Abuse Patient Records regulations: The Federal rules restrict any use of the information to criminally investigate or prosecute any alcohol or drug abuse patient.[facility] HospitalIn the event this information is protected by the Federal Confidentiality of Alcohol and Drug Abuse Patient Records regulations: The Federal rules restrict any use of the information to criminally investigate or prosecute any alcohol or drug abuse patient.[facility] HospitalIn the event this information is protected by the Federal Confidentiality of Alcohol and Drug Abuse Patient Records regulations: The Federal rules restrict any use of the information to criminally investigate or prosecute any alcohol or drug abuse patient.[facility] HospitalIn the event this information is protected by the Federal Confidentiality of Alcohol and Drug Abuse Patient Records regulations: The Federal rules restrict any use of the information to criminally investigate or prosecute any alcohol or drug abuse patient.[facility] HospitalIn the event this information is protected by the Federal Confidentiality of Alcohol and Drug Abuse Patient Records regulations: The Federal rules restrict any use of the information to criminally investigate or prosecute any alcohol or drug abuse patient.[facility] HospitalIn the event this information is protected by the Federal Confidentiality of Alcohol and Drug Abuse Patient Records regulations: The Federal rules restrict any use of the information to criminally investigate or prosecute any alcohol or drug abuse patient.[facility] HospitalIn the event this information is protected by the Federal Confidentiality of Alcohol and Drug Abuse Patient Records regulations: The Federal rules restrict any use of the information to criminally investigate or prosecute any alcohol or drug abuse patient.[facility] HospitalIn the event this information is protected by the Federal Confidentiality of Alcohol and Drug Abuse Patient Records regulations: The Federal rules restrict any use of the information to criminally investigate or prosecute any alcohol or drug abuse patient.[facility] HospitalIn the event this information is protected by the Federal Confidentiality of Alcohol and Drug Abuse Patient Records regulations: The Federal rules restrict any use of the information to criminally investigate or prosecute any alcohol or drug abuse patient.[facility] HospitalIn the event this information is protected by the Federal Confidentiality of Alcohol and Drug Abuse Patient Records regulations: The Federal rules restrict any use of the information to criminally investigate or prosecute any alcohol or drug abuse patient.[facility] HospitalIn the event this information is protected by the Federal Confidentiality of Alcohol and Drug Abuse Patient Records regulations: The Federal rules restrict any use of the information to criminally investigate or prosecute any alcohol or drug abuse patient.[facility] HospitalIn the event this information is protected by the Federal Confidentiality of Alcohol and Drug Abuse Patient Records regulations: The Federal rules restrict any use of the information to criminally investigate or prosecute any alcohol or drug abuse patient.[facility] HospitalIn the event this information is protected by the Federal Confidentiality of Alcohol and Drug Abuse Patient Records regulations: The Federal rules restrict any use of the information to criminally investigate or prosecute any alcohol or drug abuse patient.[facility] HospitalIn the event this information is protected by the Federal Confidentiality of Alcohol and Drug Abuse Patient Records regulations: The Federal rules restrict any use of the information to criminally investigate or prosecute any alcohol or drug abuse patient.[facility] HospitalIn the event this information is protected by the Federal Confidentiality of Alcohol and Drug Abuse Patient Records regulations: The Federal rules restrict any use of the information to criminally investigate or prosecute any alcohol or drug abuse patient.[facility] HospitalIn the event this information is protected by the Federal Confidentiality of Alcohol and Drug Abuse Patient Records regulations: The Federal rules restrict any use of the information to criminally investigate or prosecute any alcohol or drug abuse patient.[facility] HospitalIn the event this information is protected by the Federal Confidentiality of Alcohol and Drug Abuse Patient Records regulations: The Federal rules restrict any use of the information to criminally investigate or prosecute any alcohol or drug abuse patient.[facility] HospitalIn the event this information is protected by the Federal Confidentiality of Alcohol and Drug Abuse Patient Records regulations: The Federal rules restrict any use of the information to criminally investigate or prosecute any alcohol or drug abuse patient.[facility] HospitalIn the event this information is protected by the Federal Confidentiality of Alcohol and Drug Abuse Patient Records regulations: The Federal rules restrict any use of the information to criminally investigate or prosecute any alcohol or drug abuse patient.[facility] Reason for Visit (unrecogniz ed section and content) Specialty Diagnoses / Procedures Referred By Contac t Referred To Contact [facility] Diagnoses Lumbar disc herniation Hip pain, bilateral Abnormal gait Procedures CONSULT TO PHYSICAL THERAPY PHYSICAL THERAPY EVALUATION HIGH COMPLEX 45 MINS Nando Plummer MD [address] [place] [address] [facility] [place] [address] [place] [address] Referral ID Status Reason Start Date Expiration Date Visits Requested Visits Authorized [id number] Authorized PCP Requested Referral Auto-Generate d Referral 09/03/2021 09/03/2022 99 99 Reason Comments Physical Therapy Reason Comments PT Eval Reason Onset Date Comments Refill Request 11/09/2021 Reason Comments Referral Request Reason Onset Date Comments Refill Request 02/08/2022 Reason Comments Medicare Wellness Exam F/U 6 months Reason Onset Date Comments Refill Request 04/19/2022 Reason Onset Date Comments Refill Request 08/18/2022 Reason Comments Spirometry Specialty Diagnoses / Procedures Referred By Contac t Referred To Contact [facility] Diagnoses Bronchitis Procedures NITRIC OXIDE, EXHALED NITRIC OXIDE GAS DETERMINATION Kimberly Hdez MD [address] [place] [address] [facility] [place] [address] [place] [address] Referral ID Status Reason Start Date Expiration Date V isits Requested Visits Authorized [id number] Closed Auto-Generate d Referral 08/24/2022 09/23/2023 1 1 Reason Comments Bronchitis Specialty Diagnoses / Procedures Referred By Contac t Referred To Contact [facility] Diagnoses Bronchitis Procedures CONSULT TO PULM/CRITICAL CARE OFFICE/OUTPATIENT [facility] 60-74 MINUTES Kay Hilliard PA-C [address] [place] [id number] Referral ID Status Reason Start Date Expiration Date V isits Requested Visits Authorized [id number] Closed PCP Requested Referral 07/22/2022 07/22/2023 1 1 Reason Comments Medication Problem Reason Onset Date Comments Refill Request 09/13/2022 Reason Onset Date Comments Refill Request 11/14/2022 Reason Comments Established Patient 2 month follow up as thma Reason Onset Date Comments Refill Request 02/21/2023 Reason Comments Medicare Wellness Exam F/U 6 months Reason Comments Radiology US Specialty Diagnoses / Procedures Referred By Contac t Referred To Contact US IMAGING Diagnoses 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 Procedures US THYROID/PARATHYROID US SOFT TISSUE HEAD & NECK REAL TIME IMGE Nando Ramírez MD [facility] [place] [address] Us Imaging [facility] Referral ID Status Reason Start Date Expiration Date V isits Requested Visits Authorized [id number] Closed Auto-Generate d Referral 03/30/2023 04/28/2024 1 1 Reason Comments Consult Thyroid nodule/ FNA recommended Specialty Diagnoses / Procedures Referred By Contac t Referred To Contact General Surgery Diagnoses Multinodular goiter Procedures CONSULT TO GENERAL SURGERY OFFICE/OUTPATIENT [facility] 60-74 MINUTES Nando Plummer MD [facility] [place] [address] Referral ID Status Reason Start Date Expiration Date V isits Requested Visits Authorized [id number] Closed PCP Requested Referral 04/10/2023 04/09/2024 1 1 Reason Comments Cough Continues to test po stive for covid with at home test. X11 days. Reason Comments Sinus Problem Congestion, HOWE x 3 w eeks Care Teams (unrecognized sec tion and content) Backup Operator Relationship Specialty Start Date End Date Nando Plummer MD [address] [facility] [place] [address] PCP - General 07/25/08 Yobany Chou [address] [place] [address] Physician Ophthalmology 05/24/20 Backup Operator Relationship Specialty Start Date End Date Nando Plummer MD [address] [place] [address] PCP - General 07/25/08 Yobany Chou [address] [place] [address] Physician Ophthalmology 05/24/20 Backup Operator Relationship Specialty Start Date End Date Nando Plummer MD [address] [place] [address] PCP - General 07/25/08 Yobany Chou [address] [place] [address] Physician Ophthalmology 05/24/20 Backup Operator Relationship Specialty Start Date End Date Nando Plummer MD [address] [place] [address] PCP - General 07/25/08 Yobany Chou [address] [place] [address] Physician Ophthalmology 05/24/20 Backup Operator Relationship Specialty Start Date End Date Nando Plummer MD [address] [place] [address] PCP - General 07/25/08 Yobany Chou [address] [place] [address] Physician Ophthalmology 05/24/20 Backup Operator Relationship Specialty Start Date End Date Nando Plummer MD [address] [facility] [place] [address] PCP - General 07/25/08 Yobany Chou [address] [place] [address], [place] [address] Physician Ophthalmology 05/24/20 Backup Operator Relationship Specialty Start Date End Date Nando Plummer MD [address] [facility] [place] [address] PCP - General 07/25/08 Yobany Chou [address] [place] [address], [place] [address] Physician Ophthalmology 05/24/20 Backup Operator Relationship Specialty Start Date End Date Nando Plummer MD [address] [facility] [place] [address] PCP - General 07/25/08 Yobany Chou [address] [place] [address], [place] [address] Physician Ophthalmology 05/24/20 Backup Operator Relationship Specialty Start Date End Date Nando Plummer MD [address] [facility] [place] [address] PCP - General 07/25/08 Yobany Chou [address] [place] [address], [place] [address] Physician Ophthalmology 05/24/20 Backup Operator Relationship Specialty Start Date End Date Nando Plummer MD [address] [facility] [place] [address] PCP - General 07/25/08 Yobany Chou [address] [place] [address], [place] [address] Physician Ophthalmology 05/24/20 Backup Operator Relationship Specialty Start Date End Date Nando Plummer MD [address] [facility] [place] [address] PCP - General 07/25/08 Yobany Chou [address] [facility] [place] [address] Physician Ophthalmology 05/24/20 Backup Operator Relationship Specialty Start Date End Date Nando Plummer MD [address] [place] [address] PCP - General 07/25/08 Yobany Chou [address] [place] [address] Physician Ophthalmology 05/24/20 Backup Operator Relationship Specialty Start Date End Date Nando Plummer MD [address] [place], [place] [address] PCP - General 07/25/08 Yobany Chou [address] [place] [address] Physician Ophthalmology 05/24/20 Backup Operator Relationship Specialty Start Date End Date Nando Plummer MD [address] [place], [place] [address] [phone] PCP - General 07/25/08 Yobany Chou [address] [place] [address] Physician Ophthalmology 05/24/20 Backup Operator Relationship Specialty Start Date End Date Nando Plummer MD [address] [place] [address] PCP - General 07/25/08 Yobany Chou [address] [place] [address] Physician Ophthalmology 05/24/20 Backup Operator Relationship Specialty Start Date End Date Nando Plummer MD [address] [place] [address] PCP - General 07/25/08 Yobany Chou [address] [place] [address] Physician Ophthalmology 05/24/20 Backup Operator Relationship Specialty Start Date End Date Nando Plummer MD [address] [place] [address] PCP - General 07/25/08 Yobany Chou [address] [place] [address] Physician Ophthalmology 05/24/20 Backup Operator Relationship Specialty Start Date End Date Nando Plummer MD [address] [place] [address] PCP - General 07/25/08 Yobany Chou [address] [place] [address] Physician Ophthalmology 05/24/20 Backup Operator Relationship Specialty Start Date End Date Nando Plummer MD [address] [place] [address] PCP - General 07/25/08 Yobany Chou [address] [place] [address] Physician Ophthalmology 05/24/20 Backup Operator Relationship Specialty Start Date End Date Nando Plummer MD [address] [place] [address] PCP - General 07/25/08 Yobany Chou [address] [place] [address] Physician Ophthalmology 05/24/20 FOR RECORDS PERTAINING TO PATIENTS WHO ARE OR HAVE BEEN ENROLLED IN A CHEMICAL DEPENDENCY/SUBSTANCEABUSE PROGRAM, SOME INFORMATION MAY BE OMITTED. This clinical summary was aggregated from multiple sources. Caution should be exercised in using it in the provision of clinical care. This summary normalizes information from multiple sources, and as a consequence, information in this document may materially change the coding, format and clinical context of patient data. In addition, data may be omitted in some cases. CLINICAL DECISIONS SHOULD BE BASED ON THE PRIMARY CLINICAL RECORDS. [facility]. provides no warranty or guarantee of the accuracy or completeness of information in this document.
--- NOTE | 2023-07-12 17:55 | STRESSREP_ITS ---
Stress Test Report Date: July 09, 2023 Procedure: Pharmacologic stress nuclear imaging study Indications: Dyspnea on exertion Consent: Per the patient Procedure: The patient underwent pharmacologic (Regadenoson 0.4mg ) evaluation with a peak heart rate of 91 beats per minute (63%predicted maximal heart rate) and a peak blood pressure of 162/88 mmHg. The baseline ECG demonstrated sinus rhythm. The peak pharmacologic ECG demonstrated no ischemic changes. There were no cardiac dysrhythmias pretest, during pharmacologic infusion, or recovery. There was no complaint of chest discomfort during pharmacologic infusion or recovery. The patient was injected with 15.0 millicuries of technetium 99m Cardiolite and subsequently rest SPECT Cardiolite nuclear imaging was obtained in the horizontal long, vertical long, and short axis views. The patient underwent pharmacologic (Regadenoson) evaluation. The patient was injected with 44.8 millicuries of technetium 99m Cardiolite and subsequently stress SPECT Cardiolite nuclear imaging was obtained in the horizontal long, vertical long, and short axis views. A gated Cardiolite study at peak stress was obtained. The examination was stopped secondary to completion of protocol. Rest and stress SPECT Cardiolite nuclear imaging status post realignment, normalization, and attenuation correction demonstrate no fixed or reversible perfusion defect. There is end systolic thickening and brightening. The gated Cardiolite study demonstrates myocardial thickening and inward wall motion. The reported LVEF is 68%. Impression: 1. Pharmacologic (Regadenoson) evaluation 2. Peak pharmacologic ECG with no ischemic change. 3. There were no cardiac dysrhythmias pretest, during pharmacologic infusion, or recovery. 5. Rest and stress SPECT Cardiolite nuclear imaging demonstrate relative uniform tracer uptake and myocardial perfusion appearing within normal limits. 6. The gated Cardiolite study reports an LVEF of 68%. This note was generated with [employer] software. It may contain incorrect words, spelling, and punctuation that were not noted in checking the note before signing.
== END | disposition home or self-care (01) ==
LOC: CVS 06:35
PROVIDERS: PCP Internal Medicine; Referring Provider Internal Medicine Cardiovascular Disease; Visit Provider Internal Medicine Cardiovascular Disease
DX: R06.09 Other forms of dyspnea (principal); I42.1 Obstructive hypertrophic cardiomyopathy; G47.30 Sleep apnea, unspecified; I10 Essential (primary) hypertension
CPT/HCPCS: 78452; 93017; A9500; A4216; J2785

== ENCOUNTER → 2024-05-22 | Outpatient (CLI) | payer MEDICARE, BC, SELFPAY ==
--- NOTE | 2024-05-22 06:21 | ECHOD_ITS ---
Reason For Study: Hypertrophic CMP Procedure This was a 2D Doppler, Color Flow transthoracic echocardiogram. Exam performed in department. Left Ventricle Normal LV size. Moderate eccentric left ventricular hypertrophy. Left ventricular systolic function is normal. The left ventricular ejection fraction is 70 %. No regional wall motion abnormalities noted. Right Ventricle Normal RV size. Normal systolic function. Atria The left atrium is moderately enlarged. The right atrium is mildly enlarged. Mitral Valve Normal mitral valve. Mild (1+) eccentric mitral valve insufficiency. Aortic Valve Trisinus/trileaflet aortic valve. Moderate focal aortic valve calcification. Great Vessels Normal aortic root. The pulmonary artery is normal size. Pericardium/Pleural No pericardial effusion. MMode/2D Measurements & Calculations LVIDd: 4.4 cm IVSd: 1.6 cm LVOT diam: 2.1 cm LVIDs: 2.9 cm LVPWd: 1.3 cm LVOT area: 3.6 cm2 RVDd: 5.2 cm FS: 33.7 % Ao root diam: 3.4 cm LAV(MOD-bp): 98.7 ml LVAd ap4: 34.0 cm2 LAV(MOD-bp) Indexed: 40.9 ml/m2 LVLd ap4: 8.1 cm LAV(MOD-sp2): 91.5 ml EDV(MOD-sp4): 115.6 ml LAV(MOD-sp4): 89.6 ml EDV(sp4-el): 120.8 ml LVAs ap4: 14.6 cm2 LVLs ap4: 6.2 cm ESV(MOD-sp4): 31.1 ml ESV(sp4-el): 29.5 ml EF(MOD-sp4): 73.1 % EF(sp4-el): 75.6 % SV(MOD-sp4): 84.5 ml SV(sp4-el): 91.3 ml LA A4 area: 25.2 cm2 SI(MOD-sp4): 35.0 ml/m2 LA dimension(2D): 4.6 cm TAPSE: 2.5 cm RA A4 area: 22.0 cm2 Time Measurements MV dec time: 0.24 sec Doppler Measurements & Calculations MV E max karl: 113.5 cm/sec Lat Peak E' Karl: 9.3 cm/sec Med Peak E' Karl: 7.0 cm/sec MV A max karl: 115.6 cm/sec E/E' lat: 12.2 E/E' med: 16.2 MV E/A: 0.98 MV V2 max: 146.4 cm/sec MV P1/2t max karl: 139.3 cm/sec Ao V2 max: 148.1 cm/sec MV max P.6 mmHg MV P1/2t: 85.7 msec Ao max P.8 mmHg MV V2 mean: 85.1 cm/sec Ao V2 mean: 103.9 cm/sec MV mean P.5 mmHg MV dec slope: 476.0 cm/sec2 Ao mean P.9 mmHg MV V2 VTI: 46.7 cm MVA(P1/2t): 2.6 cm2 Ao V2 VTI: 38.6 cm AV (velocity ratio): 0.77 MVA(VTI): 2.3 cm2 ROSELINE(I,D): 2.7 cm2 ROSELINE(V,D): 2.8 cm2 LV V1 max: 118.2 cm/sec MR max karl: 650.9 cm/sec SV(LVOT): 105.7 ml LV V1 max P.6 mmHg MR max P.5 mmHg LV V1 mean P.9 mmHg LV V1 mean: 79.7 cm/sec LV V1 VTI: 29.7 cm PA V2 max: 125.6 cm/sec TR max karl: 331.6 cm/sec PA V2 mean: 93.2 cm/sec TR max P.0 mmHg ECHO/Echo Complete Interpretation Summary Normal LV size. Left ventricular systolic function is normal. The left ventricular ejection fraction is 70 %. The left atrium is moderately enlarged. Mild (1+) eccentric mitral valve insufficiency. Ordering Physician: Franc Chung Referring Physician: Franc Chung Performed By: Walter Jones RCS
--- NOTE | 2024-05-22 11:17 | STRESSREP ---
Stress Test Report Pharmacologic myocardial perfusion stress test. 78-year-old male with a history of hypertrophic cardiomyopathy and chest pain Resting EKG demonstrates sinus rhythm with a first-degree AV block with a rate of 75 bpm. Resting blood pressure is 146/70 mmHg. 0.4 mg of regadenoson was infused per usual protocol followed by rapid intravenous saline flush injection. Continuous EKG monitoring was performed. The maximum heart rate was 91 bpm which was 63% of max impacted heart rate the maximum workload was 1 metabolic equivalent. At rest there were no ST or T wave changes noted to suggest ischemia and at peak infusion nonspecific ST changes were noted which did not meet the criteria for ischemia. No clinical angina is noted. The final blood pressure was 130/60 mmHg. Myocardial perfusion protocol. 15 mCi of technetium 99m sestamibi was injected at rest. 0.4 mg of regadenoson was infused per usual protocol. At peak infusion 45 mCi of technetium 99m sestamibi was injected stress images were obtained stress and rest images were reconstructed and compared in the short axis vertical long and horizontal long axis. Gated images were also obtained. Perfusion SPECT analysis: Review of the stress images demonstrate normal uptake of tracer noted in all areas of the myocardium except for the mid anterior wall towards the apex with reduced perfusion. The resting images demonstrated normal uptake of tracer noted in all areas of the myocardium. The above is suggestive of reversibility noted in the anterior apical region suggestive of ischemia. Gated SPECT analysis: The gated ejection fraction is 65%. Conclusion: Abnormal pharmacologic myocardial perfusion stress test. Preserved ejection fraction. Anterior apical ischemia
== END | disposition home or self-care (01) ==
LOC: CVS 06:21
PROVIDERS: PCP Internal Medicine; Referring Provider Internal Medicine Cardiovascular Disease; Visit Provider Internal Medicine Cardiovascular Disease
DX: I42.1 Obstructive hypertrophic cardiomyopathy (principal); R07.9 Chest pain, unspecified
CPT/HCPCS: 78452; 93017; 93306; A9500; A4216; J2785

== ENCOUNTER → 2024-06-06 | Outpatient (CLI) | payer MEDICARE, BC, SELFPAY ==
--- NOTE | 2024-06-06 14:47 | RAD_ITS ---
INDICATION: [facility] EXAMINATION/TECHNIQUE: X-RAY - XR Chest 2 Views COMPARISON: Prior study dated: 03/26/2024 FINDINGS: LINES/DEVICES: None. LUNGS: No consolidation. No pneumothorax. MEDIASTINUM: Unremarkable. CARDIAC SILHOUETTE: Not enlarged. BONES AND SOFT TISSUES: No acute abnormalities. Multiple rib fractures on the right appear nonacute ovary not clearly seen on the prior. RAD/Chest PA and Lateral IMPRESSION: No evidence of active intrathoracic disease. Multiple right rib fractures appear nonacute, although were not clearly present on the prior study. Correlate for recent injury. Electronically Signed: Wanda Heaton MD at 5:13 EST ,
[2024-06-06 15:31] LABS: Absolute Lymphocyte Count 1.33 X10^3/uL (0.83-4.51); Basophil# 0.05 X10^3/uL; Basophil% 0.8 % (0-1); Eosinophil# 0.35 X10^3/uL; Eosinophils% 5.4 % (0-5); Hematocrit 41.3 % (40-54); Hemoglobin 14.4 g/dL (13.0-16.5); Lymphocyte # 1.33 X10^3/ul (0.83-4.51); Lymphocyte % 20.7 % (19-41); Mean Corp Hgb Conc 34.9 g/dL (32-36); Mean Corpuscular Hgb 32.3 pg (27.0-32.0); Mean Corpuscular Volume 92.6 fL (80-94); Mean Platelet Vol. 10.5 fl (6.2-12.0); Monocyte# 0.64 X10^3/uL; NRBC Flagged by Analyzer 0 % (0-5); Neutrophil # 4.04 X10^3/uL (2.7-7.7); Neutrophil % 62.8 % (47-70); Platelet Count 170 K/mm3 (150-450); RBC Distribution Width CV 12.1 % (11.6-14.6); RBC Distribution Width SD 41.2 fl (35.1-43.9); Red Blood Count 4.46 M/mm3 (4.6-6.2); White Blood Count 6.4 K/mm3 (4.4-11.0)
[2024-06-06 15:54] LABS: Anion Gap 4 (5-15); BUN 19 mg/dL (7-18); BUN/Creat Ratio 18.1 RATIO (10-20); Calcium,Total 8.9 mg/dL (8.5-10.1); Chloride 105 mmol/L (98-107); Creatinine, Serum 1.05 mg/dL (0.70-1.30); EST Glomerular Filtration Rate 73 mL/min (>60); Est Glom Filt Rate - Afr Amer 88 mL/min (>60); Glucose 114 mg/dL (74-106); Potassium 4.2 mmol/L (3.5-5.1); Sodium Level 140 mmol/L (136-145)
== END | disposition home or self-care (01) ==
LOC: RAD 14:45
PROVIDERS: PCP Internal Medicine; Referring Provider Physician Assistant Medical; Visit Provider Physician Assistant Medical
DX: R94.39 Abnormal result of other cardiovascular function study (principal)
CPT/HCPCS: 36415; 71046; 80048; 85025

== ENCOUNTER 2024-06-19 06:43 | Day surgery (SDC) | payer MEDICARE, BC, SELFPAY ==
[2024-06-16 09:27] VITALS: BMI 42.8
--- NOTE | 2024-06-19 08:50 | CL.D_ITS ---
Patient Name: REBECCA SARMIENTO Study Date: 06/19/2024 Performing: Americo Aguilera MD Ht: 69 inches 175.26 cm : 1945 Wt: 290 lbs 131.54 kg Age: 78 Gender: male BSA: 2.42 PROCEDURE(S) PERFORMED DC01-([id number])LHC/COR/LV CLINICAL PROFILE AND INDICATIONS Indications: Suspected CAD Heart Failure: None Stress/Imaging Date: 05/22/24Stress Test with SPECT MPI: Positive Low Risk CAD Presentations: Stable angina. CONCLUSIONS Non obstructive coronary arteries Calcified coronary arteries with nonobstructive disease noted and eccentric ventricular hypertrophy noted on the echocardiogram. RECOMMENDATIONS Recommend the addition of beta-tino to his regimen DESCRIPTION OF PROCEDURE The patient arrived to the procedure lab. The risks and benefits of the procedure as well as a full description of our services here and current unavailability of surgical backup were fully explained to the patient and/or their significant other prior to the catheterization. The Timeout was completed, verifying the correct patient and procedure. The patient's procedural site was prepped and draped in the usual fashion. Local anesthetic was given subcutaneously to right radial region with Lidocaine 2%. Using a modified Seldinger technique, arterial access was obtained via the right radial artery, a 6Fr sheath was inserted. Left Coronary Artery selective angiography was performed in multiple views using a 5 Fr. 4.0 [place] catheter. Right Coronary Artery selective angiography was then performed in multiple views using a 5 Fr. JR 5 catheter. Left Ventriculography was performed in CAVAZOS projection using a 5 Fr. Pigtail catheter. LV to AO pullback pressures were then recorded.The arterial sheath was pulled and a TR Band was applied for hemostasis CORONARY ANGIOGRAPHY DOMINANCE: Co- Dominant LEFT HEART ASSESSMENT Left Ventricular Ejection Fraction: by LV Gram 60 % Normal LV wall motion LEFT MAIN: Moderate calcification,And very short with probable dual ostium, Mild luminal irregularities less than 30% LEFT ANTERIOR DESCENDING ARTERY: Moderate calcification, Medium size vessel with no areas of high-grade stenosis noted. The vessel continues and courses towards the apex of the ventricle. CIRCUMFLEX ARTERY: Mild calcification, Vessel gave of a prominent first obtuse marginal branch as well as the posterior descending vessel with no high-grade stenosis noted. RIGHT CORONARY ARTERY: Mild luminal irregularities less than 30% COMPLICATIONS No Complications PROCEDURE MEDICATIONS Fentanyl 50 mcg IV Versed 1 mg IV Oxygen: 2 L/min via nasal cannula Heparin given IA 06/19/2024 08:20:08 Verapamil 2.5mg, Ntg 100mcgs, 3000 units of Heparin given IA 06/19/2024 08:20:08 SUMMARY OF HEMODYNAMIC DATA Time AIR REST ECG 07:12:07 ECG 08:03:50 AO 111/66 (85) SA 08:25:05 LV 132/13, 23 08:34:42 LV 133/7, 20 08:34:51 LV 135/13, 23 08:35:45 LVp 138/13, 22 08:35:49 AOp 104/-40 (40) 08:35:56 08:47:52 Signed By Americo Aguilera MD On 06/19/2024 08:49:39 Americo Aguilera MD
== END 2024-06-19 10:30 | disposition home or self-care (01) ==
PROVIDERS: PCP Internal Medicine; Referring Provider Internal Medicine Cardiovascular Disease; Visit Provider Internal Medicine Cardiovascular Disease
DX: I25.118 Atherosclerotic heart disease of native coronary artery with other forms of angina pectoris (principal); I42.1 Obstructive hypertrophic cardiomyopathy; E11.9 Type 2 diabetes mellitus without complications; I10 Essential (primary) hypertension; E78.00 Pure hypercholesterolemia, unspecified; Z79.899 Other long term (current) drug therapy; Z79.84 Long term (current) use of oral hypoglycemic drugs; R94.39 Abnormal result of other cardiovascular function study; R07.89 Other chest pain; I51.7 Cardiomegaly
CPT/HCPCS: 93458; 99152; 99153; Q9967; C1769; C1894